=== PATIENT | male | born 1940 | race Caucasian/White ===

== ENCOUNTER → 2017-04-22 15:30 | Outpatient (CLI) | payer MEDICARE, BC, SELFPAY ==
--- NOTE | 2017-04-22 15:36 | RAD_ITS ---
STUDY: X-RAY CHEST REASON FOR EXAM: Male, 76 years old. Right posterior chest pain. TECHNIQUE: PA and lateral views of the chest. COMPARISON: None. FINDINGS: The lungs are incompletely expanded and there is minimal linear subsegmental atelectasis in the inferior lung bases. There is a focus of pleural parenchymal scarring in the medial left apex that includes a nearly 2 cm calcified granuloma. Much of this overlaps the posterior medial left third and fourth ribs as well as the medial left clavicle, so detail is limited. Normal size heart. Normal mediastinum and logan. Normal visualized pulmonary arteries. There is atherosclerotic calcification of the aortic arch and descending thoracic aorta. There are diffuse degenerative changes of the visualized thoracic spine. Normal visualized ribs, clavicles, and shoulders. There is no demonstrated abnormality of the visualized soft tissue structures of the upper abdomen. RAD/Chest PA and Lateral IMPRESSION: 1. Minimal basilar subsegmental atelectasis. No consolidating infiltrate or CHF. 2. Pleural parenchymal scarring in the medial left apex that includes a nearly 2 cm calcified granuloma. Electronically Signed: Rashaad Whittington MD at 16:32 EST , Service support ,
== END ==
PROVIDERS: Family Provider Nurse Practitioner; PCP Nurse Practitioner; Visit Provider Nurse Practitioner
DX: M54.9 Dorsalgia, unspecified (principal)
CPT/HCPCS: 71046

== ENCOUNTER → 2017-05-10 08:14 | Outpatient (CLI) | payer MEDICARE, BC, SELFPAY ==
--- NOTE | 2017-05-10 08:17 | US_ITS ---
STUDY: ABDOMINAL ULTRASOUND - RIGHT UPPER QUADRANT REASON FOR VISIT: Male, 76 years old. Indigestion. TECHNIQUE: Ultrasound evaluation of the right upper quadrant was performed with real-time and static shah-scale imaging. TECHNICAL QUALITY: Adequate. COMPARISON: None. FINDINGS: Liver: The liver measures 18.6 cm. There is increased echogenicity consistent with fatty infiltration. The bile ducts are within normal limits. There is hepatic color flow. The direction of portal flow is hepatopetal. There is no demonstrated mass lesion. Gallbladder: Normal distended gallbladder. The gallbladder wall measures 2 mm. There is a negative sonographic Westbrook's sign. There is no pericholecystic fluid. There are no gallstones. Common Bile Duct (C.B.D.): The common bile duct measures 5 mm. Pancreas: Normal size of the head, body and tail of the pancreas. There is normal echogenicity of the pancreas. There is no demonstrated pancreatic mass or cyst. Right Kidney: Normal size of the right kidney. The right kidney measures 12.3 cm. Normal renal cortex. The right cortex measures 1.7 cm. There is no demonstrated renal mass or cyst. There is no right hydronephrosis. US/Gallbladder IMPRESSION: Fatty infiltration of the liver. No gallstones or biliary dilatation. Electronically Signed: Mohamud Byrne MD at 16:11 EDT , Service support ,
== END ==
PROVIDERS: Family Provider Internal Medicine; PCP Internal Medicine; Visit Provider Nurse Practitioner
DX: K30 Functional dyspepsia (principal)
CPT/HCPCS: 76705

== ENCOUNTER → 2017-05-27 07:20 | Outpatient (CLI) | payer MEDICARE, BC, SELFPAY ==
--- NOTE | 2017-05-27 07:24 | NM_ITS ---
CLINICAL: 76-year-old male with reported history of abdominal pain. RADIONUCLIDE HEPATOBILIARY SCINTIGRAPHY COMPARISON: Abdominal ultrasound report 05/10/2017 FINDINGS: Following the intravenous administration of 5.5 mCi of 99m Tc Mebrofenin, hepatobiliary images reveal: 1. Relatively prompt and homogeneous radiopharmaceutical concentration is noted by a normal sized liver. No parenchymal defects are identified. 2. Gallbladder activity is identified at 10 minutes post radiopharmaceutical administration. 3. Small intestinal tract is observed at 45 minutes following tracer injection. 4. Washout of the radiopharmaceutical by the hepatic parenchyma appears qualitatively normal. Cholecystokinin (0.02 ug/kg) was administered intravenously over a 30-minute period. The post CCK gallbladder ejection fraction calculated at 20 minutes following Cholecystokinin administration was noted to be 88.0 % (normal greater than 35%). During 30 minutes of post CCK imaging, there is no scintigraphic evidence of reflux of the radiotracer into the common hepatic duct or refilling of the gallbladder. There is scintigraphic evidence of post CCK duodenal gastric reflux. NM/Hepatobilliary Imaging IMPRESSION: 1. A gallbladder ejection fraction calculated to be greater than 35% following the administration of Cholecystokinin makes the probability of functional hepatobiliary disease (gallbladder and/or sphincter of Oddi dyskinesia) and/or organic hepatobiliary disease (chronic acalculous cholecystitis and/or cystic duct syndrome) to be low. (Lloyd Mancera et al, Journal of Nuclear Medicine 32:1695, 1990). 2. There is scintigraphic evidence of post CCK duodenal-gastric reflux as described above. (Tripp et al, Nucl Med Laura Hannah Press pg. 35, 1980). Electronically Signed: Shadi Pierce DO at 8:30 EDT Tel , Service support ,
== END ==
PROVIDERS: Family Provider Internal Medicine; PCP Internal Medicine; Visit Provider Nurse Practitioner
DX: K21.9 Gastro-esophageal reflux disease without esophagitis (principal)
CPT/HCPCS: 78226; A9537; J2805

== ENCOUNTER → 2018-07-23 12:52 | Outpatient (CLI) | payer MEDICARE, BC, SELFPAY ==
--- NOTE | 2018-07-23 13:00 | EKG12_ITS ---
Test Reason : BRADYCARDIA Blood Pressure : / mmHG Vent. Rate : 056 BPM Atrial Rate : 056 BPM P-R Int : 214 ms QRS Dur : 090 ms QT Int : 422 ms P-R-T Axes : 030 011 011 degrees QTc Int : 407 ms Sinus bradycardia with 1st degree A-V block Inferior infarct , age undetermined Abnormal ECG Confirmed by RYAN KIRBY ([id number]), senior technical editor ARMANDO ALONSO ([id number]) on 07/25/2018 6:06:14 AM Referred By: Chelsie Arndt Confirmed By:RYAN KIRBY
== END ==
PROVIDERS: Family Provider Internal Medicine; PCP Internal Medicine; Referring Provider Nurse Practitioner; Visit Provider Nurse Practitioner
DX: R00.1 Bradycardia, unspecified (principal)
CPT/HCPCS: 93005

== ENCOUNTER → 2018-09-03 06:07 | Outpatient (CLI) | payer MEDICARE, BC, SELFPAY ==
[2018-08-13 14:24] VITALS: BMI 29.0
[2018-08-30 10:00] VITALS: BMI 29.0
--- NOTE | 2018-09-03 06:08 | ECHOCS_ITS ---
Reason For Study: S/P PR Procedure This was a 2D Doppler, Color Flow transthoracic echocardiogram. The study was technically difficult. Contrast injection was performed. Exam performed in department. Left Ventricle Normal LV size. Moderate concentric left ventricular hypertrophy. Left ventricular systolic function is normal. The estimated ejection fraction is 60 %. Stage 1 diastolic dysfunction. No regional wall motion abnormalities noted. Right Ventricle Normal RV size. Normal systolic function. Atria Normal left atrium. Normal right atrium. Mitral Valve Normal mitral valve. Tricuspid Valve Normal tricuspid valve. Aortic Valve The aortic valve is not well visualized. Pulmonic Valve The pulmonic valve is not well visualized. Great Vessels Normal aortic root. The pulmonary artery is normal size. Normal inferior vena cava. Pericardium/Pleural No pericardial effusion. Medication 22 gauge I.V. with prn adaptor inserted into right arm. Diluted definity 5ml given slow IV push to enhance endocardial definition. MMode/2D Measurements & Calculations LVIDd: 4.6 cm IVSd: 1.5 cm Ao root diam: 3.5 cm LVIDs: 3.0 cm LVPWd: 1.2 cm LA dimension: 3.7 cm FS: 36.3 % LAV(MOD-bp): 51.0 ml LVAd ap4: 30.0 cm2 SV(MOD-sp4): 60.3 ml LAV(MOD-bp) Indexed: 24.0 ml/m2 EDV(MOD-sp4): 90.7 ml LAV(MOD-sp2): 51.2 ml EDV(sp4-el): 94.2 ml LAV(MOD-sp4): 47.4 ml LVAs ap4: 15.5 cm2 ESV(MOD-sp4): 30.5 ml ESV(sp4-el): 30.5 ml EF(MOD-sp4): 66.4 % EF(sp4-el): 67.7 % SV(sp4-el): 63.8 ml LA A4 area: 18.2 cm2 RA A4 area: 17.3 cm2 Time Measurements MV dec time: 0.26 sec Doppler Measurements & Calculations MV E max poncho: 77.4 cm/sec Lat Peak E' Poncho: 8.4 cm/sec Med Peak E' Poncho: 6.8 cm/sec MV A max poncho: 100.4 cm/sec E/E' lat: 9.2 E/E' med: 11.3 MV E/A: 0.77 MV V2 max: 120.4 cm/sec MV P1/2t max poncho: 107.9 cm/sec Ao V2 max: 146.4 cm/sec MV max P.8 mmHg MV P1/2t: 75.3 msec Ao max P.6 mmHg MV V2 mean: 54.3 cm/sec MV mean P.5 mmHg MV dec slope: 419.8 cm/sec2 MV V2 VTI: 45.7 cm MVA(P1/2t): 2.9 cm2 LV V1 max: 126.6 cm/sec PA V2 max: 95.3 cm/sec LV V1 max P.4 mmHg Interpretation Summary Normal LV size. Moderate concentric left ventricular hypertrophy. Left ventricular systolic function is normal. The estimated ejection fraction is 60 %. Stage 1 diastolic dysfunction. Contrast injection was performed. Ordering Physician: Jeff Portillo Referring Physician: Chelsie Arndt Performed By: Yogi Vasquez RCS
--- NOTE | 2018-09-03 06:08 | CDU_ITS ---
Reason For Study: Vertigo Rt. Velocities/BP Lt. Velocities/BP Prox CCA 84/14 cm/sec. Prox CCA 83/16 cm/sec. Mid CCA 78/14 cm/sec. Mid CCA 74/16 cm/sec. Dist CCA 59/12 cm/sec. Dist CCA 56/12 cm/sec. Prox ICA 46/16 cm/sec. Prox ICA 143/33 cm/sec. Mid ICA 66/20 cm/sec. Mid ICA 85/18 cm/sec. Dist ICA 75/23 cm/sec. Dist ICA 82/23 cm/sec. Rt. ICA/CCA = 1.0. Lt. ICA/CCA = 1.93. Prox ECA 86/6 cm/sec. Prox ECA 93/6 cm/sec. Rt. Vert. 55/14 cm/sec. Lt. Vert. 45/12 cm/sec. Right Extracranial There is homogeneous, smooth atherosclerotic plaque noted in the right common carotid artery. There is heterogeneous, irregular atherosclerotic plaque noted in the right internal carotid artery. There is heterogeneous, irregular atherosclerotic plaque noted in the right external carotid artery. Antegrade flow is noted in the right vertebral artery. Left Extracranial There is heterogeneous, irregular atherosclerotic plaque noted in the left common carotid artery. There is heterogeneous, irregular atherosclerotic plaque noted in the left internal carotid artery. There is homogeneous, smooth atherosclerotic plaque noted in the left external carotid artery. Antegrade flow is noted in the left vertebral artery. Procedure Carotid Duplex [id number]. Exam performed in department. Interpretation Summary Mild (<50%) stenosis right extracranial internal carotid. Moderate (50-69%) stenosis left extracranial internal carotid. Flow within the vertebral arteries is antegrade bilaterally. Ordering Physician: Jeff Portillo Referring Physician: Chelsie Arndt Performed By: Vanita Lancaster, JEROME, RVT
--- NOTE | 2018-09-03 09:21 | STRESSREP ---
Stress Test Report Exercise myocardial perfusion stress test. 77-year-old male with a history of known coronary artery disease. Medications: Aspirin, irbesartan, amlodipine. Stress protocol: Resting EKG demonstrates sinus bradycardia with a rate of 60 bpm normal intervals are noted resting blood pressures 152/88 mmHg. The patient exercised according to regular John protocol for a total duration of 8 minutes. The maximum heart rate attained was 139 bpm which was 97% of maximum predicted heart rate the maximum workload was 10.1 metabolic equivalents. At rest there were no ST or T wave changes noted suggest ischemia peak exercise upsloping ST changes noted with no meet the criteria for ischemia. During recovery there were nonspecific ST changes noted. No clinical angina was noted. The resting blood pressure 152/88 with a peak blood pressure of 168/82 mmHg. Myocardial perfusion protocol. 14.3 mCi of technetium 99m sestamibi was injected at rest. Patient exercised according to regular John protocol for 8 minutes. At peak exercise 44.4 mCi of technetium 99m sestamibi was injected stress images were obtained stress and rest images were reconstructed in comparing the short axis vertical and horizontal long axis. Perfusion SPECT analysis: Review of the stress images demonstrate normal uptake of tracer noted in all areas of the myocardium the resting images similar demonstrate normal uptake of tracer noted in all areas of myocardium. No areas of reversibility no suggest ischemia no previous infarct is noted. Gated SPECT analysis: Gated ejection fraction is noted to be 58%. Conclusion: Normal exercise myocardial perfusion stress test at a high workload. Preserved ejection fraction.
== END ==
PROVIDERS: Family Provider Nurse Practitioner; PCP Nurse Practitioner; Referring Provider Internal Medicine Cardiovascular Disease; Visit Provider Internal Medicine Cardiovascular Disease
DX: I10 Essential (primary) hypertension (principal); I25.10 Atherosclerotic heart disease of native coronary artery without angina pectoris; R09.89 Other specified symptoms and signs involving the circulatory and respiratory systems; I25.2 Old myocardial infarction
CPT/HCPCS: 78452; 93017; 93306; 93880; A9500; Q9957; A4216; C8929

== ENCOUNTER → 2018-10-07 14:15 | Outpatient (CLI) | payer SELFPAY ==
[2018-08-30 10:00] VITALS: BMI 29.0
--- NOTE | 2018-10-07 14:25 | CT_ITS ---
STUDY: CARDIAC CALCIUM SCORING - CT CHEST REASON FOR EXAM: Male, 77 years old. RADIATION DOSAGE (If Supplied By Facility): CTDIvol = ( 12.19 ) mGy, DLP = ( 195.04 ) mGycm TECHNIQUE: Axial non-enhanced images were acquired through the heart for the sole purpose of measuring coronary artery calcium. Individualized dose optimization techniques were used for this CT. COMPARISON: None. FINDINGS: Visualized surrounding anatomy: Normal. Left Main Coronary Artery: 65.2 Left Anterior Descending Artery: 183 Left Circumflex Artery: 52.7 Right Coronary Artery: 13.3 Other: Total Calcium Score: 315 There is moderate aortic atherosclerotic disease. There is mild bibasilar atelectasis. Mild cardiomegaly. There are degenerative changes of the spine. CT/Limited Chest CT w/CCTA IMPRESSION: A Calcium Score of 315 places the patient in the approximate 35 percentile, based on the HOWE data calculator. Please go to: www.howe-n[facility].org/Calcium/input.aspx , for a description of the calculator. Electronically Signed: Eusebia Nayak, at 16:51 EDT Tel , Service support ,
[2018-10-07 14:32] VITALS: BP 130/65; PULSE 53; RESP 18; O2SAT 93; BMI 27.8
--- NOTE | 2018-10-07 16:39 | CA.SCORE ---
Calcium Scoring Date of Study:: 10/07/18 Coronary Calcium Scoring: High-resolution Computed Tomographic imaging of the chest was performed on [10/07/2018], with particular attention paid to the coronary arteries. Images from the examination were analyzed for the presence and extent of coronary artery calcification , using coronary calcium quantification software. The patient tolerated the procedure well and there were no complications. The results of the coronary calcification analysis are provided below. - Findings Left Main (LM): 65 Left Anterior Descending (LAD): 183 Left Circumflex (LCX): 52 Right Coronary Artery (RCA): 13 Total Agatston Score: 313 Percentile Rankin to 50% Calcium Scoring Interpretation: 0 No identifiable atherosclerotic plaque. Very low cardiovascular disease risk. <5% chance of presence coronary artery disease A Negative Examination 1-10 Minimal Plaque burden. Significant coronary artery disease very unlikely. 11-100 Mild plaque burden. Likely mild or minimal coronary atherosclerosis. 101-400 Moderate plaque burden Moderate non-obstructive coronary artery disease highly likely. Over 400 Extensive plaque burden. High likelihood of at least one significant coronary stenosis (>50% diameter) Calcium Score: 101 - 400 Moderate non-obstructive coronary artery disease highly like Conclusion: The above is suggestive of moderate atherosclerotic plaquing. Full evaluation of cardiac risk should include an assessment of all conventional risk factors and the scores and percentile rankings reported herein should be evaluated in this context.
== END ==
PROVIDERS: Family Provider Nurse Practitioner; PCP Nurse Practitioner; Referring Provider Nurse Practitioner; Visit Provider Nurse Practitioner
DX: Z13.9 Encounter for screening, unspecified (principal)
CPT/HCPCS: 75571; 76380

== ENCOUNTER → 2019-12-01 12:54 | Outpatient (CLI) | payer MEDICARE, BC, SELFPAY ==
[2018-10-07 14:32] VITALS: BMI 27.8
--- NOTE | 2019-12-01 12:57 | CDU_ITS ---
Reason For Study: carotid stenosis Rt. Velocities/BP Lt. Velocities/BP Prox CCA 90.4/13.4 cm/sec. Prox CCA 93.0/18.6 cm/sec. Mid CCA 63.0/13.4 cm/sec. Mid CCA 73.4/13.4 cm/sec. Dist CCA 57.8/8.2 cm/sec. Dist CCA 56.4/10.8 cm/sec. Prox ICA 55.2/13.4 cm/sec. Prox ICA 141.2/34.3 cm/sec. Mid ICA 55.2/17.3 cm/sec. Mid ICA 112.5/26.5 cm/sec. Dist ICA 68.2/22.6 cm/sec. Dist ICA 106.5/20.6 cm/sec. Rt. ICA/CCA = 1.1. Lt. ICA/CCA = 1.9. Prox ECA 98.2/9.5 cm/sec. Prox ECA 104.7/8.2 cm/sec. Rt. Vert. 40.8/13.4 cm/sec. Lt. Vert. 49.8/8.0. cm/sec. Right Extracranial There is intimal thickening but no significant atherosclerotic plaque noted in the right common carotid artery. There is heterogeneous, irregular atherosclerotic plaque noted in the right internal carotid artery. There is heterogeneous, irregular atherosclerotic plaque noted in the right external carotid artery. Antegrade flow is noted in the right vertebral artery. Left Extracranial There is intimal thickening but no significant atherosclerotic plaque noted in the left common carotid artery. There is heterogeneous, irregular atherosclerotic plaque noted in the left internal carotid artery. There is homogeneous, smooth atherosclerotic plaque noted in the left external carotid artery. Antegrade flow is noted in the left vertebral artery. Procedure Carotid Duplex [id number]. This is a Carotid Duplex examination using B-mode, color flow and specral Doppler. The exam was diagnostic. Exam performed in department. Interpretation Summary Mild (<50%) stenosis right extracranial internal carotid. Moderate (50-69%) stenosis left extracranial internal carotid. Flow within the vertebral arteries is antegrade bilaterally. Ordering Physician: Chelsie Arndt Performed By: Derrell Bryant RVT
== END ==
PROVIDERS: PCP Nurse Practitioner; Referring Provider Nurse Practitioner; Visit Provider Nurse Practitioner
DX: I65.23 Occlusion and stenosis of bilateral carotid arteries (principal); R93.89 Abnormal findings on diagnostic imaging of other specified body structures
CPT/HCPCS: 93880

== ENCOUNTER 2020-03-25 14:38 | Outpatient (RCR) | payer MEDICARE, BC, SELFPAY ==
[2018-10-07 14:32] VITALS: BMI 27.8
== END 2020-03-25 23:59 ==
LOC: IMMUN 14:38
PROVIDERS: PCP Nurse Practitioner; Referring Provider Family Medicine; Visit Provider Family Medicine
DX: Z23 Encounter for immunization (principal)
CPT/HCPCS: 0011A; 0012A

== ENCOUNTER → 2020-07-07 12:46 | Outpatient (CLI) | payer MEDICARE, BC, SELFPAY ==
[2018-10-07 14:32] VITALS: BMI 27.8
--- NOTE | 2020-07-07 12:48 | CDU_ITS ---
Reason For Study: carotid stenosis Rt. Velocities/BP Lt. Velocities/BP Prox CCA 82.6/13.4 cm/sec. Prox CCA 86.5/16.0 cm/sec. Mid CCA 76.0/13.4 cm/sec. Mid CCA 63.0/10.8 cm/sec. Dist CCA 57.8/9.5 cm/sec. Dist CCA 70.8/17.3 cm/sec. Prox ICA 64.3/17.3 cm/sec. Prox ICA 200.4/44.5 cm/sec. Mid ICA 66.9/17.3 cm/sec. Mid ICA 149.9/29.2 cm/sec. Dist ICA 59.1/17.3 cm/sec. Dist ICA 91.9/13.3 cm/sec. Rt. ICA/CCA = .9. Lt. ICA/CCA = 3.2. Prox ECA 91.7/9.5 cm/sec. Prox ECA 123.0/12.1 cm/sec. Rt. Vert. 66.9/18.6 cm/sec. Lt. Vert. 71.6/18.8 cm/sec. Right Extracranial There is intimal thickening but no significant atherosclerotic plaque noted in the right common carotid artery. There is heterogeneous, irregular atherosclerotic plaque noted in the right internal carotid artery. There is heterogeneous, irregular atherosclerotic plaque noted in the right external carotid artery. Antegrade flow is noted in the right vertebral artery. Left Extracranial There is intimal thickening but no significant atherosclerotic plaque noted in the left common carotid artery. There is heterogeneous, irregular atherosclerotic plaque noted in the left internal carotid artery. There is heterogeneous, irregular atherosclerotic plaque noted in the left external carotid artery. Antegrade flow is noted in the left vertebral artery. Procedure Carotid Duplex [id number]. This is a Carotid Duplex examination using B-mode, color flow and specral Doppler. The exam was diagnostic. Exam performed in department. VL/Carotid Duplex Ultrasound Interpretation Summary Mild (<50%) stenosis right extracranial internal carotid. Moderate (50-69%) sue nosis left extracranial internal carotid. Flow within the vertebral arteries is antegrade bilaterally. Ordering Physician: Chelsie Arndt Performed By: Derrell Bryant RVT
== END ==
PROVIDERS: PCP Nurse Practitioner; Referring Provider Nurse Practitioner; Visit Provider Nurse Practitioner
DX: I65.23 Occlusion and stenosis of bilateral carotid arteries (principal)
CPT/HCPCS: 93880

== ENCOUNTER 2020-09-06 16:08 | Emergency (ER) | payer MEDICARE, BC, SELFPAY ==
[2018-10-07 14:32] VITALS: BMI 27.8
[2020-09-06 16:09] VITALS: BP 136/98; PULSE 112; RESP 18; TEMP 36.4; O2SAT 92; BMI 27.0
--- NOTE | 2020-09-06 16:44 | EX.ED.DYSGE1 ---
HPI History of Present Illness Chief Complaint: Nosebleed Informant: patient Narrative Narrative: 79-year-old male presenting with nosebleed. He states this started approximately 1 PM. He is on aspirin, no other anticoagulants. He states he blew his nose and then noticed blood from his right nare. Denies trauma. Denies other complaints. Recent Illness/Hospitalization: No PFSH PFS Medical History (Updated 09/06/20 @ 17:[address] Jossie Crum MD) Arthritis BPH (benign prostatic hyperplasia) Erectile dysfunction Essential (primary) hypertension GERD (gastroesophageal reflux disease) History of Lyme disease Hyperlipidemia Hypernatremia Low testosterone in male Home Medications aspirin 81 mg tablet,delayed release 81 mg PO DAILY 08/04/18 [History Last Taken Unknown] cholecalciferol (vitamin D3) 50 mcg (2,000 unit) tablet 4,000 unit PO DAILY tab 08/04/18 [History Last Taken Unknown] pravastatin 40 mg tablet 40 mg PO DAILY 08/04/18 [History Last Taken Unknown] vitamin E (dl, acetate) 400 unit capsule 400 unit PO DAILY 08/04/18 [History Last Taken Unknown] vitamins A,C,S-bahg-qpzyul 7,160 unit-113 mg-100 unit tablet 2 tab PO BID 08/04/18 [History Last Taken Unknown] amlodipine 10 mg tablet 10 mg PO DAILY #90 tab 08/13/18 [Rx Last Taken Unknown] losartan 100 mg tablet PO #30 tab 08/30/18 [History Last Taken Unknown] hydrochlorothiazide 12.5 mg PO DAILY 09/06/20 [History Last Taken Unknown] Allergy/AdvReac Type Severity Reaction Status Date / Time simvastatin [From Zocor] Allergy Mild itch Verified 09/06/20 16:09 Family History Other Hypertension Surgical History History of cataract extraction (~2014) History of prostatectomy (~2012) History of repair of rotator cuff History of total left knee replacement History of total right knee replacement Social History (Updated 08/30/18 @ 12:27 by Marita Munroe PA, PA) Smoking Status: Former smoker how long ago did patient quit smokin alcohol intake: current details: occasional substance use type: does not use caffeine: Yes ROS ROS ED Constitutional Constitutional ED: Denies fever(s) ENT ENT ED: Reports other Details: nosebleed ; Denies rhinorrhea or sore throat Cardiovascular Cardiovascular: Denies chest pain or palpitations Respiratory/Chest Respiratory/Chest: Denies cough or dyspnea EXAM Physical Exam Const Vital Signs: 09/06/20 16:09 Temperature 97.5 F L Temperature Source Temporal Pulse Rate 112 H Respiratory Rate 18 Blood Pressure 136/98 H Blood Pressure Mean 110 Pulse Ox 92 Oxygen Delivery Method Room Air Positive well nourished and well developed General Appearance ED: well developed HEENT Reports normocephalic and head/scalp atraumatic HEENT Narrative: dried blood right nare. No blood in posterior pharynx Eyes PERRL and EOMs intact bilaterally Neck supple General: Negative for tenderness Chest Wall inspection of chest normal Resp normal respiratory effort and clear to auscultation bilaterally Cardio regular rate and regular rhythm no CVA tenderness Extremity normal to inspection Neuro oriented x3 Sensorium / Orientation: alert Psych mental status grossly normal MDM MDM MDM Narrative Medical decision making narrative: Direct pressure was applied. Cotton ball soaked in Gonzalo mix was instilled into right nare. After observation patient has no active bleeding. Rhino Rocket was placed. Patient tolerated this well. Advised to follow-up with ENT. Advised return to ED for worsening complaints. Discharge Plan Triage Chief Complaint: Nosebleed ED Provider: Jossie Crum Dx/Rx/DC Orders Clinical Impression: Epistaxis Instructions: Nosebleed Prescriptions: No Action amlodipine 10 mg tablet 10 mg PO DAILY Qty: 90 RF: 3 pravastatin 40 mg tablet 40 mg PO DAILY RF: 0 aspirin [Adult Aspirin Regimen] 81 mg tablet,delayed release (DR/EC) 81 mg PO DAILY RF: 0 cholecalciferol (vitamin D3) 2,000 unit tablet 4,000 unit PO DAILY RF: 0 vitamin E (dl, acetate) 400 unit capsule 400 unit PO DAILY RF: 0 PreserVision AREDS 7,160-113-100 axzt-od-bvzf tablet 2 tab PO BID RF: 0 losartan 100 mg tablet PO Qty: 30 RF: 0 hydrochlorothiazide 12.5 mg Capsule 12.5 mg PO DAILY RF: 0 Primary Care Provider: Chelsie Arndt NP Referrals: Chelsie Arndt NP, [employer] [Primary Care Provider] - Sergio Sánchez MD [STAFF PHYSICIAN] - Disposition Disposition: Home, Self Care
== END 2020-09-06 17:23 | disposition home or self-care (01) ==
PROVIDERS: Emergency Provider Emergency Medicine; PCP Nurse Practitioner
DX: R04.0 Epistaxis (principal); I10 Essential (primary) hypertension; M19.90 Unspecified osteoarthritis, unspecified site; E78.5 Hyperlipidemia, unspecified; N40.0 Benign prostatic hyperplasia without lower urinary tract symptoms; K21.9 Gastro-esophageal reflux disease without esophagitis; Z79.82 Long term (current) use of aspirin; Z79.899 Other long term (current) drug therapy; Z87.891 Personal history of nicotine dependence; Z96.653 Presence of artificial knee joint, bilateral; Z90.79 Acquired absence of other genital organ(s)
CPT/HCPCS: 30901; 99282

== ENCOUNTER 2020-09-19 10:53 | Emergency (ER) | payer MEDICARE, BC, SELFPAY ==
[2020-09-19 10:54] VITALS: BP 150/87; PULSE 109; RESP 16; TEMP 36.6; O2SAT 98; BMI 28.7
--- NOTE | 2020-09-19 11:50 | EX.ED.DYSGE1 ---
HPI History of Present Illness Chief Complaint: Nosebleed Informant: patient Narrative Narrative: Patient presents with a repeat of nosebleed on the right side. He has been holding his aspirin for about a week now. He was seen here a week to 2 weeks ago. Packing was placed. He followed up with ENT. They did cauterization. He just bumped his nose a little bit today and it started bleeding. It has always been on the right side only. Squeezing in the front of the nose stops it. Releasing the starts it again. He is not on any other anticoagulation. No other areas of bleeding or bruising. [facility] Medical History (Updated 09/19/20 @ 14:[address] Henrry Grande MD) Arthritis BPH (benign prostatic hyperplasia) Erectile dysfunction Essential (primary) hypertension GERD (gastroesophageal reflux disease) History of Lyme disease Hyperlipidemia Hypernatremia Low testosterone in male Home Medications aspirin 81 mg tablet,delayed release 81 mg PO DAILY 08/04/18 [History Last Taken Unknown] cholecalciferol (vitamin D3) 50 mcg (2,000 unit) tablet 4,000 unit PO DAILY tab 08/04/18 [History Last Taken Unknown] pravastatin 40 mg tablet 40 mg PO DAILY 08/04/18 [History Last Taken Unknown] vitamin E (dl, acetate) 180 mg (400 unit) capsule 400 unit PO DAILY 08/04/18 [History Last Taken Unknown] vitamins A,C,W-tykx-rtjoel 7,160 unit-113 mg-100 unit tablet 2 tab PO BID 08/04/18 [History Last Taken Unknown] amlodipine 10 mg tablet 10 mg PO DAILY #90 tab 08/13/18 [Rx Last Taken Unknown] losartan 100 mg tablet PO #30 tab 08/30/18 [History Last Taken Unknown] hydrochlorothiazide 12.5 mg PO DAILY 09/06/20 [History Last Taken Unknown] Allergy/AdvReac Type Severity Reaction Status Date / Time simvastatin [From Zocor] Allergy Mild itch Verified 09/06/20 16:09 Family History Other Hypertension Surgical History History of cataract extraction (~2014) History of prostatectomy (~2012) History of repair of rotator cuff History of total left knee replacement History of total right knee replacement Social History Smoking Status: Former smoker how long ago did patient quit smokin alcohol intake: current details: occasional substance use type: does not use caffeine: Yes ROS ROS ED Constitutional Constitutional ED: Denies chills or fever(s) Eyes Eyes: Denies change in vision ENT ENT ED: Reports other Details: See history of present illness. ; Denies ear pain, rhinorrhea or sore throat Cardiovascular Cardiovascular: Denies chest pain Respiratory/Chest Respiratory/Chest: Denies cough or dyspnea Gastrointestinal Gastrointestinal: Denies melena, nausea or vomiting Genitourinary Genitourinary ED: Denies hematuria Integumentary Denies rash Neurologic Neurologic: Denies headache(s) Endocrine Endocrinology: Denies polydipsia or polyuria EXAM Physical Exam Const Vital Signs: 09/19/20 10:54 09/19/20 14:24 Temperature 97.8 F Temperature Source Temporal Pulse Rate 109 H 91 Respiratory Rate 16 16 Blood Pressure 150/87 H 162/74 H Blood Pressure Mean 108 Pulse Ox 98 98 Oxygen Delivery Method Room Air Positive well nourished and well developed General Appearance ED: well developed and NAD HEENT HEENT Narrative: Nasal clip. There is no active bleeding at this time. There is no posterior pharyngeal bleeding. No sign of facial rashes. Negative for trauma or tenderness Eyes General Eye ED: Negative for pale conjunctiva Neck supple Chest Wall inspection of chest normal Resp normal respiratory effort Cardio regular rate GI normal to inspection, nondistended, normoactive bowel sounds and non-tender Palpation: soft Extremity normal to inspection Extremity Narrative: No abnormal contusions, bruises or petechiae. Skin no rashes or lesions noted MDM MDM MDM Narrative Medical decision making narrative: [place] solution was placed in the right naris. There was a small amount of dark blood oozing from the area. None from the left side. Patient had a spot of cauterization on the right. After [place] solution this was not losing. I still placed a 5-1/2 cm rapid Rhino in the nose. This was the noninflatable version that was available. We watched him. He is gotten up and walked around. He occasionally has a little bit of pink-tinged serous fluid coming out the front but no bleeding. No posterior pharyngeal bleeding. I explained to the patient that this will likely take some time to fully heal. This is likely related to the first event. He may have dislodged a small clot from the area of cauterization when it started bleeding today after bumping the nose. If he has further bleeding, we can try TXA, thrombin or the longer rapid Rhino. I see an anterior area but I do not have an inflatable pack in the shorter length so we would have to use the longer 1. He will follow up with ENT again in 2 to 3 days. He should return with rebleeding. Discharge Plan Triage Chief Complaint: Nosebleed ED Provider: Henrry Grande Dx/Rx/DC Orders Clinical Impression: Epistaxis Instructions: ED Epistaxis (Adult) Prescriptions: No Action amlodipine 10 mg tablet 10 mg PO DAILY Qty: 90 RF: 3 pravastatin 40 mg tablet 40 mg PO DAILY RF: 0 aspirin [Adult Aspirin Regimen] 81 mg tablet,delayed release (DR/EC) 81 mg PO DAILY RF: 0 cholecalciferol (vitamin D3) 2,000 unit tablet 4,000 unit PO DAILY RF: 0 vitamin E (dl, acetate) 400 unit capsule 400 unit PO DAILY RF: 0 PreserVision AREDS 7,160-113-100 wqhn-as-bihh tablet 2 tab PO BID RF: 0 losartan 100 mg tablet PO Qty: 30 RF: 0 hydrochlorothiazide 12.5 mg Capsule 12.5 mg PO DAILY RF: 0 Primary Care Provider: Chelsie Arndt NP Referrals: Chelsie Arndt [employer], [employer] [Primary Care Provider] - Activity Restrictions/Additional Instructions: Follow-up with your director of learning in 2-3 days. Return with any significant rebleeding. Return with any fevers or chills. Disposition Disposition: Home, Self Care Discharge Date/Time: 09/19/20 14:25
[2020-09-19 14:24] VITALS: BP 162/74; PULSE 91; RESP 16; O2SAT 98
== END 2020-09-19 14:25 | disposition home or self-care (01) ==
PROVIDERS: Emergency Provider Emergency Medicine; PCP Nurse Practitioner
DX: R04.0 Epistaxis (principal); D64.9 Anemia, unspecified; E83.52 Hypercalcemia; I10 Essential (primary) hypertension; E78.5 Hyperlipidemia, unspecified; M19.90 Unspecified osteoarthritis, unspecified site; N40.0 Benign prostatic hyperplasia without lower urinary tract symptoms; K21.9 Gastro-esophageal reflux disease without esophagitis; Z79.82 Long term (current) use of aspirin; Z79.899 Other long term (current) drug therapy; Z87.891 Personal history of nicotine dependence; Z96.653 Presence of artificial knee joint, bilateral
CPT/HCPCS: 30901; 36415; 80069; 82607; 82746; 83540; 83550; 85025; 99282

== ENCOUNTER → 2020-09-19 16:59 | Outpatient (CLI) | payer MEDICARE, BC, SELFPAY ==
[2020-09-19 10:54] VITALS: BMI 28.7
[2020-09-19 17:48] LABS: Absolute Lymphocyte Count 1.07 X10^3/uL (0.83-4.51); Absolute Neutrophil Count 6.7 X10^3/uL (2.0-7.7); Basophil# 0.04 X10^3/uL; Basophil% 0.5 % (0-1); Eosinophil# 0.03 X10^3/uL; Eosinophils% 0.4 % (0-5); Hematocrit 40.7 % (40-54); Lymphocyte # 1.07 X10^3/ul (0.83-4.51); Lymphocyte % 12.5 % (19-41); Mean Corp Hgb Conc 31.9 g/dL (32-36); Mean Corpuscular Hgb 27.6 pg (27.0-32.0); Mean Corpuscular Volume 86.4 fL (80-94); Mean Platelet Vol. 8.8 fl (6.2-12.0); Monocyte# 0.71 X10^3/uL; Monocyte% 8.3 % (0-10); NRBC Flagged by Analyzer 0 % (0-5); Neutrophil % 78.1 % (47-70); Platelet Count 433 K/mm3 (150-450); RBC Distribution Width CV 13.3 % (11.6-14.6); Red Blood Count 4.71 M/mm3 (4.6-6.2); White Blood Count 8.6 K/mm3 (4.4-11.0)
[2020-09-19 18:10] LABS: Vitamin B12 598 pg/mL (211-911)
[2020-09-19 18:22] LABS: Albumin, Serum 3.8 g/dL (3.2-5.0); BUN 16 mg/dL (7-18); BUN/Creat Ratio 23.3 RATIO (10-20); Chloride 103 mmol/L (98-107); Creatinine, Serum 0.69 mg/dL (0.70-1.30); EST Glomerular Filtration Rate 118 mL/min (>60); Est Glom Filt Rate - Afr Amer 142 mL/min (>60); Glucose 97 mg/dL (74-106); Iron 25 ug/dL (65-175); Iron Binding Capacity,Total 299 ug/dL (250-450); PERCENT IRON SATURATION 8.4 % (15.0-55.0); Phosphorus 2.6 mg/dL (2.5-4.9); Potassium 3.4 mmol/L (3.5-5.1); Sodium Level 139 mmol/L (136-145)
== END ==
PROVIDERS: PCP Nurse Practitioner; Referring Provider Nurse Practitioner; Visit Provider Nurse Practitioner
DX: D64.9 Anemia, unspecified (principal); E83.52 Hypercalcemia
CPT/HCPCS: 36415; 80069; 82607; 82746; 83540; 83550; 85025

== ENCOUNTER → 2021-01-20 10:07 | Outpatient (CLI) | payer MEDICARE, BC, SELFPAY ==
[2021-01-20 10:45] LABS: CREATININE FINGERSTICK < 0.6 mg/dL (0.70-1.30); EGFR FINGERSTICK > 60.0000 mL/min (>60)
--- NOTE | 2021-01-20 10:45 | MRI_ITS ---
HISTORY: ATAXIA, bilateral arm/hand pain. TECHNIQUE: Multiplanar and multisequence MR images of the brain were obtained without and with IV gadolinium. IV Contrast dosage and agent: 18 cc dotarem. # of images incl. paperwork: 351. COMPARISON: None. FINDINGS: BRAIN PARENCHYMA: Increased T2 FLAIR signal in the periventricular white matter. No abnormal focus of restricted diffusion. No enhancing lesion in the brain parenchyma. INTRACRANIAL HEMORRHAGE: No acute intracranial hemorrhage. CSF SPACES: Generalized volume loss. No midline shift or other significant mass effect. No extra-axial fluid collection. Choroid plexus cysts incidentally noted. VESSELS: Major intracranial flow voids maintained. ORBITS: Bilateral lens resections. PARANASAL SINUSES: No significant air-fluid levels. MRI/Brain W/WO Contrast IMPRESSION: No evidence of enhancing intracranial mass, acute infarct, or acute intracranial hemorrhage. Chronic involutional and white matter changes. at 1429 Reported and signed by: Jennifer Sampson MD Electronically Signed: Jennifer Sampson MD at 14:27 EST Tel , Service support ,
--- NOTE | 2021-01-20 10:45 | MRI_ITS ---
HISTORY: ATAXIA, bilateral arm/hand pain. TECHNIQUE: Routine [place]/brain 3D time of flight MR angiogram protocol was performed without gadolinium. 3D reconstructions were reviewed. Number of images including paperwork: 195. COMPARISON: None. FINDINGS: RIGHT VERTEBRAL ARTERY: Patent. LEFT VERTEBRAL ARTERY: Dominant and patent. BASILAR ARTERY: No occlusion, significant stenosis, or aneurysm. RIGHT NETBACKUP ENGINEER: origin. No occlusion, significant stenosis, or aneurysm. LEFT NETBACKUP ENGINEER: No occlusion, significant stenosis, or aneurysm. RIGHT ICA:No occlusion, significant stenosis, or aneurysm. LEFT ICA: No occlusion, significant stenosis, or aneurysm. RIGHT MCA:No occlusion, significant stenosis, or aneurysm. LEFT MCA: No occlusion, significant stenosis, or aneurysm. RIGHT HAIM: No occlusion, significant stenosis, or aneurysm. LEFT HAIM: No occlusion, significant stenosis, or aneurysm. MRI/MRA Head ONLY without Contrast IMPRESSION: No evidence for focal vascular abnormality in the [place] region. at 1433 Reported and signed by: Jennifer Sampson MD Electronically Signed: Jennifer Sampson MD at 14:32 EST Tel , Service support ,
== END ==
PROVIDERS: PCP Nurse Practitioner; Referring Provider Nurse Practitioner; Visit Provider Nurse Practitioner
DX: R26.9 Unspecified abnormalities of gait and mobility (principal)
CPT/HCPCS: 70544; 70553; A9575

== ENCOUNTER → 2021-02-13 14:26 | Outpatient (CLI) | payer MEDICARE, BC, SELFPAY ==
[2021-02-13 17:59] LABS: Absolute Lymphocyte Count 2.07 X10^3/uL (0.83-4.51); Absolute Neutrophil Count 6.9 X10^3/uL (2.0-7.7); Basophil# 0.02 X10^3/uL; Basophil% 0.2 % (0-1); Eosinophil# 0.17 X10^3/uL; Eosinophils% 1.7 % (0-5); Hematocrit 44.1 % (40-54); Lymphocyte # 2.07 X10^3/ul (0.83-4.51); Lymphocyte % 20.4 % (19-41); Mean Corp Hgb Conc 31.7 g/dL (32-36); Mean Corpuscular Hgb 27.7 pg (27.0-32.0); Mean Corpuscular Volume 87.2 fL (80-94); Mean Platelet Vol. 8.8 fl (6.2-12.0); Monocyte# 0.91 X10^3/uL; NRBC Flagged by Analyzer 0 % (0-5); Neutrophil % 68.1 % (47-70); Platelet Count 341 K/mm3 (150-450); RBC Distribution Width CV 15.6 % (11.6-14.6); RBC Distribution Width SD 48.4 fl (35.1-43.9); Red Blood Count 5.06 M/mm3 (4.6-6.2); White Blood Count 10.1 K/mm3 (4.4-11.0)
[2021-02-13 18:14] LABS: ALB/GLOB Ratio 0.9 RATIO (0.9-2.4); AST(SGOT) 18 U/L (15-37); Alanine Aminotransfer ALT/SGPT 33 U/L (16-61); Albumin, Serum 3.6 g/dL (3.2-5.0); Alkaline Phosphatase 86 U/L (45-117); Anion Gap 7 (5-15); BUN 26 mg/dL (7-18); BUN/Creat Ratio 34.8 RATIO (10-20); Calcium,Total 9.8 mg/dL (8.5-10.1); Chloride 100 mmol/L (98-107); Creatinine, Serum 0.75 mg/dL (0.70-1.30); EST Glomerular Filtration Rate 107 mL/min (>60); Est Glom Filt Rate - Afr Amer 129 mL/min (>60); Globulin 3.9 g/dL (2.2-4.2); Glucose 82 mg/dL (74-106); Potassium 3.7 mmol/L (3.5-5.1); Protein, Total 7.5 g/dL (6.4-8.2); Sodium Level 139 mmol/L (136-145)
[2021-02-13 18:24] LABS: Erythrocyte Sedimentation Rate 48 mm/hr (0-20)
[2021-02-14 10:12] LABS: Hepatitis B Surface Antibody Non-Reactive; Hepatitis B Surface Antigen Non-Reactive (Nonreactive); Hepatitis C Antibody Non-Reactive (Nonreactive)
[2021-02-16 11:56] LABS: ANTINUCLEAR ANTIBODIES DIRECT Negative (Negative)
== END ==
PROVIDERS: PCP Nurse Practitioner; Referring Provider Internal Medicine Rheumatology; Visit Provider Internal Medicine Rheumatology
DX: M06.4 Inflammatory polyarthropathy (principal); M19.041 Primary osteoarthritis, right hand; H35.30 Unspecified macular degeneration; I10 Essential (primary) hypertension; E78.5 Hyperlipidemia, unspecified; K21.9 Gastro-esophageal reflux disease without esophagitis; F41.9 Anxiety disorder, unspecified; H91.90 Unspecified hearing loss, unspecified ear; H93.13 Tinnitus, bilateral
CPT/HCPCS: 36415; 80053; 85025; 85652; 86038; 86140; 86706; 86803; 87340

== ENCOUNTER 2021-03-07 09:43 | Outpatient (CLI) | payer MEDICARE, BC, SELFPAY ==
--- NOTE | 2021-03-07 09:50 | US_ITS ---
STUDY: ABDOMINAL ULTRASOUND - RIGHT UPPER QUADRANT REASON FOR VISIT: Male, 80 years old INFLAMMATORY POLYARTHROPATHY -- HTN TECHNIQUE: Ultrasound evaluation of the right upper quadrant was performed with real-time and static shah-scale imaging. TECHNICAL QUALITY: Adequate. COMPARISON: Comparison is made with prior ultrasound of the right upper quadrant dated 05/10/2017. FINDINGS: Liver: The liver measures 17.7 cm. There is normal echogenicity of the liver. The bile ducts are within normal limits. There is hepatic color flow. The direction of portal flow is hepatopetal. There is a 4 cm x 3.6 cm x 3 cm echogenic nodule in the anterior aspect of the right lobe of the liver. This most likely represents an hemangioma. Gallbladder: Normal distended gallbladder. The gallbladder wall measures 2.4 mm. There is a negative sonographic Westbrook''s sign. There is no pericholecystic fluid. There are no gallstones. Common Bile Duct (C.B.D.): The common bile duct measures 4.0 mm. Pancreas: Normal size of the head, body and tail of the pancreas. There is normal echogenicity of the pancreas. There is no demonstrated pancreatic mass or cyst. Right Kidney: Normal size of the right kidney. The right kidney measures 11.7 cm x 5.5 cm x 6.1 cm. Normal renal cortex. The right cortex measures 2.0 cm. There is no demonstrated renal mass or cyst. There is no right hydronephrosis. US/Liver IMPRESSION: Findings suggestive of a 4 cm x 3.6 cm x 3 cm hemangioma in the right lobe of the liver. Electronically Signed: Cecil Steinberg MD at 13:25 EST , Service support ,
== END 2021-03-07 23:59 | disposition short-term general hospital (02) ==
LOC: US 09:47
PROVIDERS: PCP Nurse Practitioner; Referring Provider Internal Medicine Rheumatology; Visit Provider Internal Medicine Rheumatology
DX: M06.4 Inflammatory polyarthropathy (principal); M19.041 Primary osteoarthritis, right hand; H35.30 Unspecified macular degeneration; I10 Essential (primary) hypertension; E78.5 Hyperlipidemia, unspecified; K21.9 Gastro-esophageal reflux disease without esophagitis; F41.9 Anxiety disorder, unspecified; H91.90 Unspecified hearing loss, unspecified ear; H93.13 Tinnitus, bilateral
CPT/HCPCS: 76705

== ENCOUNTER → 2022-03-09 | Outpatient (CLI) | payer MEDICARE, BC, SELFPAY ==
--- NOTE | 2022-03-09 08:31 | RDU_ITS ---
Reason For Study: HTN Right Renal Artery Left Renal Artery Right renal artery ostium 187/32 Left renal artery ostium 307/68 RSV/EDV. PSV/EDV. Right renal artery proximal 181/39 Left renal artery proximal PSV/EDV PSV/EDV. 287/67 . Right renal artery mid 119/24 Left renal artery mid 134/38 PSV/EDV. PSV/EDV . Right renal artery distal 89/27 Left renal artery distal 131/34 PSV/EDV. PSV/EDV. Right RAR 2.03. Left RAR 3.34. Right Renal Parenchyma Left Renal Parenchyma Upper Pole Medula 23/7 PSV/EDV. Left upper pole medulla 48/15 Right upper pole medulla EDR 0.30 . PSV/EDV . Right upper pole medulla R.I. Left upper pole medulla EDR 0.31 . 0.72 . Left upper pole medulla R.I. 0.68 . Upper Jun Cortx 16/6 PSV/EDV. UP Cortex 45/13 PSV/EDV. Right upper pole cortex EDR 0.38 . Left upper pole cortex EDR 0.29 . Right upper pole cortex R.I. 0.62 . Left upper pole cortex R.I. 0.72 . Right lower Pole medulla 53/15 Left lower Pole medulla 28/9 PSV/EDV . PSV/EDV . Right lower pole medulla EDR 0.28 . Left lower pole medulla EDR 0.32 . Right lower pole medulla R.I. Left lower pole medulla R.I. 0.68 . 0.71 . Lower Pole Cortx 28/11 PSV/EDV. Lower Pole Cortex 24/7 PSV/EDV. Left lower pole cortex EDR 0.39 . Right lower pole cortex EDR 0.29 . Left lower pole cortex R.I. 0.61 . Right lower pole cortex R.I. 0.69 . Left Renal Hilar Right Renal Hilar LT Hilar avg 75/23 PSV/EDV . Right Hilar avg 88/24 PSV/EDV. Left hilar acceleration time 60 Right hilar acceleration time 60 m/sec. m/sec. Left Renal Dimensions Right Renal Dimensions Left kidney size 11.34 cm . Right kidney size 10.9 cm . Left cortical dimension 1.61 cm . Right cortical dimension 1.33 cm . Hypoechoic, non vascular structure noted Lt Kidney measuring 2.72cm x 2.65cm. Aorta Proximal abdominal aorta 1.71cm x 1.84 cm . Proximal abdominal aorta peak systolic velocity is 92 cm/sec . Distal abdominal aorta 1.54cm x 1.54 cm . Distal abdominal aorta peak systolic velocity is 90 cm/sec . VL/Renal Artery Duplex Ultrasound Interpretation Summary Right renal artery with elevated velocities but with a normal renal aortic rati o indicating no significant stenosis. Left renal artery with elevated velocities but with a normal renal aortic ratio indicating no significant stenosis. Right renal vein patent Left renal vein patent Right kidney normal in size Left kidney normal in size Ordering Physician: Aissatou Madsen Referring Physician: Aissatou Madsen Performed By: Vanita Lancaster, RDHELEN, RVT
== END | disposition home or self-care (01) ==
LOC: CVS 08:27
PROVIDERS: PCP Nurse Practitioner Family; Visit Provider Nurse Practitioner Family
DX: I10 Essential (primary) hypertension (principal)
CPT/HCPCS: 93975

== ENCOUNTER 2022-03-19 19:17 | Emergency (ER) | payer MEDICARE, BC, SELFPAY ==
[2022-03-19 19:18] VITALS: BP 246/116; PULSE 84; RESP 16; TEMP 36.4; O2SAT 97; BMI 28.5
--- NOTE | 2022-03-19 19:44 | EX.ED.DYSGE1 ---
HPI History of Present Illness Chief Complaint: Hypertension Informant: patient Onset/Context/Timing Onset: Month(s) (1-2) Narrative Narrative: His blood pressures been elevated for the last 1 to 2 months, more than usual. He has been on antihypertensives for several decades. He states his nurse practitioner has been adjusting medications recently, added isosorbide a couple weeks ago, initially at 20 mg twice daily then doubled it to 40 mg twice daily. He has been on losartan, 1 week ago clonidine 0.1 mg twice daily was added and today she discontinued that and put him on metoprolol 25 mg twice daily. The last dose of clonidine was this morning he was taking it 3 times daily for the last week. He started the new medication, states that his blood pressures been up all afternoon, and now it is over 200, he is asymptomatic but concerned about the numbers. [facility] Medical History Arthritis BPH (benign prostatic hyperplasia) Carotid artery disease Erectile dysfunction Essential (primary) hypertension GERD (gastroesophageal reflux disease) History of Lyme disease Hyperlipidemia Hypernatremia Low testosterone in male Home Medications pravastatin 40 mg tablet 40 mg PO DAILY 08/04/18 [History Last Taken Unknown] vitamins A,C,C-tbrc-icgdia 2,148 mcg-113 mg-45 mg-17.4 mg tablet (PreserVision AREDS) 2 tab PO BID 08/04/18 [History Last Taken Unknown] escitalopram oxalate 5 mg tablet 5 mg PO DAILY 03/19/22 [History Last Taken Unknown] finasteride 5 mg tablet 5 mg PO DAILY 03/19/22 [History Last Taken Unknown] furosemide 40 mg tablet (Lasix) 40 mg PO DAILY 03/19/22 [History Last Taken Unknown] isosorbide dinitrate 40 mg tablet 40 mg PO BID 03/19/22 [History Last Taken Unknown] lansoprazole 30 mg capsule,delayed release (Prevacid) 30 mg PO DAILY PRN Stomach Upset 03/19/22 [History Last Taken Unknown] losartan 100 mg tablet 100 mg PO DAILY #30 tabs 03/19/22 [History Last Taken Unknown] metoprolol tartrate 25 mg tablet 25 mg PO BID 03/19/22 [History Last Taken Unknown] potassium chloride 20 mEq tablet,extended release 20 meq PO DAILY 03/19/22 [History Last Taken Unknown] spironolactone 25 mg tablet 12.5 mg PO DAILY 03/19/22 [History Last Taken Unknown] vit C 250 mg-vit E 90 mg-zinc 40 mg-copper 1 qm-raulwa-aatyty capsule (PreserVision AREDS-2) 1 tab PO BID 03/19/22 [History Last Taken Unknown] Allergy/AdvReac Type Severity Reaction Status Date / Time simvastatin [From Zocor] Allergy Mild itch Verified 03/19/22 19:19 Family History Other Hypertension Surgical History History of cataract extraction (~2014) History of prostatectomy (~2012) History of repair of rotator cuff History of total left knee replacement History of total right knee replacement Social History Smoking Status: Former smoker how long ago did patient quit smokin alcohol intake: current details: occasional substance use type: does not use caffeine: Yes ROS ROS ED Constitutional Constitutional ED: Denies chills or fever(s) Eyes Eyes: Denies change in vision or diplopia ENT ENT ED: Denies rhinorrhea or sore throat Cardiovascular Cardiovascular: Denies chest pain or palpitations Respiratory/Chest Respiratory/Chest: Denies cough or dyspnea Gastrointestinal Gastrointestinal: Denies abdominal pain, diarrhea, nausea or vomiting Genitourinary Genitourinary ED: Denies dysuria or hematuria Musculoskeletal Musculoskeletal: Denies back pain or neck pain Integumentary Denies abscess or rash Neurologic Neurologic: Denies headache(s), paresthesias or weakness Psychiatric Psychiatric: Denies anxiety or suicidal thoughts EXAM Physical Exam Const Vital Signs: 03/19/22 19:18 03/19/22 19:55 03/19/22 20:08 Temperature 97.6 F L Temperature Source Temporal Pulse Rate 84 Respiratory Rate 16 Blood Pressure 246/116 H 204/85 H 142/77 H Blood Pressure Mean 159 124 98 Pulse Ox 97 Oxygen Delivery Method Room Air 03/19/22 21:17 Temperature Temperature Source Pulse Rate 87 Respiratory Rate 16 Blood Pressure 202/98 H Blood Pressure Mean 132 Pulse Ox 94 Oxygen Delivery Method Room Air Positive well nourished and well developed General Appearance ED: well developed and NAD HEENT Reports moist mucous membranes normocephalic and atraumatic Eyes PERRL and EOMs intact bilaterally Neck full ROM and supple Resp normal respiratory effort and clear to auscultation bilaterally Cardio regular rate, regular rhythm and no murmurs GI non-tender and non-distended Auscultation: normoactive bowel sounds Palpation: soft Back/Spine no CVA tenderness General Back: other FROM Extremity normal to inspection General Extremety ED: Negative for edema, pulses abnormal or tenderness General Extremity: Negative for edema or pulses abnormal Neuro oriented x3, CN's II-XII intact bilaterally and no sensory deficits noted Sensorium / Orientation: awake and alert Motor Exam: strength 5/5 throughout Skin no rashes or lesions noted and no wounds MDM MDM MDM Narrative Medical decision making narrative: Patient initially asymptomatic, the only blood test I ordered was a basic metabolic panel which came back unremarkable except for the mild prerenal azotemia. However, as I went back in the patient started talking about his stomach being upset earlier in the little now and he feels like he needs to burp. He is not having any chest discomfort or dyspnea, but he feels shaky off and on. He is conscious and has a nonfocal neurologic exam. We initially treat his pressure with IV hydralazine 20 mg, he went down to 142/77 but now he is back up to systolic of 202 as he is feeling shaky a little. Therefore because of the stomach discomfort and this, I am adding on cardiac work-up and giving him a dose of labetalol in addition to clonidine orally. His cardiac work-up is normal. On reevaluation, he is feeling much better, he took a nap in the ED he had no more shaking, his blood pressure is down in the 160s on multiple readings. I think this is adequate and he is in a safe place to go home with close outpatient follow-up regarding these medications. To started the metoprolol today, he took 25 mg 7 or 8 hours ago, we gave him hydralazine and labetalol here as well as clonidine. I think he can go home and take his other dose of metoprolol since his heart rate is in the 70s and 80s, I recommend that he use his clonidine as an as needed overnight and into tomorrow if he needs it for elevated blood pressures over 185, and to follow-up closely with his PCP for further medication management with regards to this. He is comfortable with that plan. Lab Data Attestation: I reviewed the patient's lab results. Labs: Laboratory Results - last 24 hr 03/19/22 03/19/22 03/19/22 19:43 19:43 19:43 WBC 7.9 RBC 4.75 Hgb 13.9 Hct 41.9 MCV 88.2 MCH 29.3 MCHC 33.2 RDW Std Deviation 43.9 RDW Coeff of Aisha 13.5 Plt Count 333 MPV 9.5 Immature Gran % (Auto) 0.400 Neut % (Auto) 76.6 H Lymph % (Auto) 14.3 L Stone % (Auto) 8.0 Eos % (Auto) 0.4 Baso % (Auto) 0.3 Absolute Neuts (auto) 6.1 Absolute Lymphs (auto) 1.13 Nucleated RBC % 0 Sodium 141 Potassium 3.8 Chloride 104 Carbon Dioxide 29.0 Anion Gap 8 BUN 31 H Creatinine 0.95 Estim Creat Clear Calc 63.85 Est GFR (MDRD) Af Amer 97 Est GFR (MDRD) Non-Af 80 BUN/Creatinine Ratio 32.5 H Glucose 112 H Calcium 9.8 Troponin I High Sens 14 Rhythm Strip Rhythm Strip: Sinus Rhythm Rate: 80 Ectopy: None EKG Initial EKG: Attestation: I personally reviewed and interpreted this EKG as follows: Interpretation: Sinus Rhythm, No Acute Injury Pattern and AV Block (1st deg) Prior EKG tracings: available for review Prior: Unchanged Discharge Plan Triage Chief Complaint: Hypertension ED Provider: Mohamud Weller Dx/Rx/DC Orders Clinical Impression: Accelerated hypertension Instructions: Controlling High Blood Pressure Prescriptions: No Action pravastatin 40 mg tablet 40 mg PO DAILY PreserVision AREDS 7,160-113-100 jwvp-kr-[id number] tablet 2 tab PO BID losartan 100 mg tablet 100 mg PO DAILY Qty: 30 furosemide [Lasix] 40 mg tablet 40 mg PO DAILY isosorbide dinitrate 40 mg tablet 40 mg PO BID Rx Instructions: allow nitrate-free interval of 12-14 hrs per 24-hr period spironolactone 25 mg tablet 12.5 mg PO DAILY potassium chloride 20 mEq tablet extended release 20 meq PO DAILY finasteride 5 mg tablet 5 mg PO DAILY lansoprazole [Prevacid] 30 mg Capsule,Delayed Release(Dr/Ec) 30 mg PO DAILY PRN (Reason: Stomach Upset) escitalopram oxalate 5 mg Tablet 5 mg PO DAILY metoprolol tartrate 25 mg Tablet 25 mg PO BID PreserVision AREDS-2 250-90-40-1 mg Capsule 1 tab PO BID Primary Care Provider: Aissatou Madsen Referrals: Aissatou Madsen, [employer] [Primary Care Provider] - As soon as possible Activity Restrictions/Additional Instructions: Continue your metoprolol as prescribed, you may take the nighttime medicine tonight when you get home. Use your clonidine as needed for right now, if your blood pressure goes over 185 and you are having more symptoms. You may take 0.2 mg, you may repeat this at or beyond 2 hours later with another 0.1 or 0.2 mg if you need to. Disposition Disposition: Home, Self Care
[2022-03-19] MEDS: hydrALAZINE 20 MG/ML Vial IV (19:52)
[2022-03-19 19:55] VITALS: BP 204/85
[2022-03-19 20:08] VITALS: BP 142/77
[2022-03-19 20:18] LABS: Anion Gap 8 (5-15); BUN 31 mg/dL (7-18); BUN/Creat Ratio 32.5 RATIO (10-20); Calcium,Total 9.8 mg/dL (8.5-10.1); Chloride 104 mmol/L (98-107); Creatinine, Serum 0.95 mg/dL (0.70-1.30); EST Glomerular Filtration Rate 80 mL/min (>60); Est Glom Filt Rate - Afr Amer 97 mL/min (>60); Estimated Creatinine Clearance 63.85 ml/min; Glucose 112 mg/dL (74-106); Potassium 3.8 mmol/L (3.5-5.1); Sodium Level 141 mmol/L (136-145)
--- NOTE | 2022-03-19 21:03 | EKG12_ITS ---
Test Reason : HTN Blood Pressure : / mmHG Vent. Rate : 082 BPM Atrial Rate : 082 BPM P-R Int : 256 ms QRS Dur : 090 ms QT Int : 384 ms P-R-T Axes : 042 026 002 degrees QTc Int : 448 ms Sinus rhythm with 1st degree A-V block with Premature atrial complexes Otherwise normal ECG Confirmed by MAGGIE GONZALEZ, PARK ([id number]), book editor TIFF WATSON ([id number]) on 03/22/2022 10:09:25 AM Referred By: PATRICE Confirmed By:PARK SERRANO MD
[2022-03-19] MEDS: Labetalol (Prefilled) 20 MG/4 ML IV (21:10)
[2022-03-19 21:13] LABS: Absolute Lymphocyte Count 1.13 X10^3/uL (0.83-4.51); Absolute Neutrophil Count 6.1 X10^3/uL (2.0-7.7); Basophil# 0.02 X10^3/uL; Basophil% 0.3 % (0-1); Eosinophil# 0.03 X10^3/uL; Eosinophils% 0.4 % (0-5); Hematocrit 41.9 % (40-54); Hemoglobin 13.9 g/dL (13.0-16.5); Lymphocyte # 1.13 X10^3/ul (0.83-4.51); Lymphocyte % 14.3 % (19-41); Mean Corp Hgb Conc 33.2 g/dL (32-36); Mean Corpuscular Hgb 29.3 pg (27.0-32.0); Mean Corpuscular Volume 88.2 fL (80-94); Mean Platelet Vol. 9.5 fl (6.2-12.0); Monocyte# 0.63 X10^3/uL; NRBC Flagged by Analyzer 0 % (0-5); Neutrophil # 6.08 X10^3/uL (2.7-7.7); Neutrophil % 76.6 % (47-70); Platelet Count 333 K/mm3 (150-450); RBC Distribution Width CV 13.5 % (11.6-14.6); RBC Distribution Width SD 43.9 fl (35.1-43.9); Red Blood Count 4.75 M/mm3 (4.6-6.2); White Blood Count 7.9 K/mm3 (4.4-11.0)
[2022-03-19] MEDS: cloNIDine HCl 0.2 MG Tablet PO (21:15)
[2022-03-19 21:17] VITALS: BP 202/98; PULSE 87; RESP 16; O2SAT 94
[2022-03-19 21:49] LABS: Troponin-I HS 14 pg/mL (3.0-78.0)
[2022-03-19 22:34] VITALS: BP 125/74; PULSE 66; RESP 16; O2SAT 95
== END 2022-03-19 22:35 | disposition home or self-care (01) ==
PROVIDERS: Emergency Provider Emergency Medicine; PCP Nurse Practitioner Family; Visit Provider Emergency Medicine
DX: I10 Essential (primary) hypertension (principal); R10.9 Unspecified abdominal pain; E78.5 Hyperlipidemia, unspecified; Z87.891 Personal history of nicotine dependence; Z90.79 Acquired absence of other genital organ(s); Z96.653 Presence of artificial knee joint, bilateral
CPT/HCPCS: 80048; 84484; 85025; 93005; 96374; 96375; 99283; A4216

== ENCOUNTER → 2022-03-27 | Outpatient (CLI) | payer MEDICARE, BC, SELFPAY ==
--- NOTE | 2022-03-27 12:48 | ECHOD_ITS ---
Version 3 Reason For Study: HYPERTENSION Procedure This was a 2D Doppler, Color Flow transthoracic echocardiogram. The study was technically difficult. Exam performed in department. Left Ventricle Normal LV size. Left ventricular systolic function is normal. The estimated ejection fraction is 55 %. Stage 1 diastolic dysfunction. No regional wall motion abnormalities noted. Right Ventricle Normal RV size. Normal systolic function. Atria Normal left atrium. Normal right atrium. Mitral Valve Normal mitral valve. Tricuspid Valve Normal tricuspid valve. Mild (1+) tricuspid valve insufficiency. Pulmonary artery systolic pressure is 27 mmHg. Aortic Valve Normal aortic valve. Pulmonic Valve Normal pulmonic valve. Great Vessels Normal aortic root. The pulmonary artery is normal size. Normal inferior vena cava. Pericardium/Pleural No pericardial effusion. MMode/2D Measurements & Calculations LVIDd: 4.8 cm IVSd: 1.3 cm Ao root diam: 3.8 cm LVIDs: 3.2 cm LVPWd: 1.3 cm RVDd: 3.5 cm FS: 32.2 % LAV(MOD-bp): 56.5 ml LA A4 area: 15.6 cm2 LA dimension(2D): 4.1 cm LAV(MOD-bp) Indexed: 26.6 ml/m2 LAV(MOD-sp2): 51.4 ml LAV(MOD-sp4): 51.3 ml RA A4 area: 10.6 cm2 Time Measurements MV dec time: 0.21 sec Doppler Measurements & Calculations MV E max poncho: 81.9 cm/sec Lat Peak E' Poncho: 6.5 cm/sec Med Peak E' Poncho: 5.8 cm/sec MV A max poncho: 90.6 cm/sec E/E' lat: 12.6 E/E' med: 14.1 MV E/A: 0.90 MV dec slope: 384.9 cm/sec2 Ao V2 max: 139.3 cm/sec LV V1 max: 98.4 cm/sec Ao max P.8 mmHg LV V1 max P.9 mmHg Ao V2 mean: 95.8 cm/sec LV V1 mean P.0 mmHg Ao mean P.2 mmHg LV V1 mean: 65.9 cm/sec Ao V2 VTI: 35.0 cm LV V1 VTI: 20.5 cm AV (velocity ratio): 0.59 PA V2 max: 89.9 cm/sec TR max poncho: 240.9 cm/sec TR max P.2 mmHg ECHO/Echo Complete Interpretation Summary Normal LV size. Left ventricular systolic function is normal. The estimated ejection fraction is 55 %. Pulmonary artery systolic pressure is 27 mmHg. Stage 1 diastolic dysfunction. Structurally normal valves. Ordering Physician: Aissatou Madsen Referring Physician: Jeff Portillo Performed By: Rachana Mina RDCS, RVT
--- NOTE | 2022-03-27 12:48 | CDU_ITS ---
Reason For Study: Carotid stenosis Rt. Velocities/BP Lt. Velocities/BP Prox CCA 51.3/6.9 cm/sec. Prox CCA 55.3/9.1 cm/sec. Mid CCA 51.3/10.7 cm/sec. Mid CCA 48.7/11.3 cm/sec. Dist CCA 46.6/11.6 cm/sec. Dist CCA 48.7/9.1 cm/sec. Prox ICA 55.3/12.4 cm/sec. Prox ICA 201.4/49.5 cm/sec. Mid ICA 47.6/15.7 cm/sec. Mid ICA 136.8/13.8 cm/sec. Dist ICA 55.3/16.8 cm/sec. Dist ICA 88.5/16 cm/sec. Rt. ICA/CCA = 1.08. Lt. ICA/CCA = 4.13. Prox ECA 100.3/6.9 cm/sec. Prox ECA 98.1/11.3 cm/sec. Rt. Vert. 50.9/12.4 cm/sec. Lt. Vert. 47/12.6 cm/sec. Right Extracranial There is homogeneous, smooth atherosclerotic plaque noted in the right common carotid artery. There is heterogeneous, irregular atherosclerotic plaque noted in the right internal carotid artery. The atherosclerotic plaque causes acoustic shadowing. There is heterogeneous, irregular atherosclerotic plaque noted in the right external carotid artery. Antegrade flow is noted in the right vertebral artery. Left Extracranial There is homogeneous, smooth atherosclerotic plaque noted in the left common carotid artery. There is heterogeneous, irregular atherosclerotic plaque noted in the left internal carotid artery. There is heterogeneous, irregular atherosclerotic plaque noted in the left external carotid artery. Antegrade flow is noted in the left vertebral artery. Procedure Carotid Duplex 15080. This is a Carotid Duplex examination using B-mode, color flow and specral Doppler. Exam performed in department. VL/Carotid Duplex Ultrasound Interpretation Summary Minimal calcific plaque with shadowing at the proximal right internal carotid a rtery with less than 50% stenosis Less than 50% stenosis right external carotid artery Irregular calcific plaque of the proximal left internal carotid artery with 50 to 69% stenosis. Less than 50% stenosis left external carotid artery Patent and antegrade bilateral vertebrals Findings appear unchanged from July 07, 2020 Ordering Physician: Aissatou Madsen Referring Physician: Aissatou Madsen Performed By: Kendra Dallas RVT
== END | disposition home or self-care (01) ==
LOC: CVS 12:39
PROVIDERS: PCP Nurse Practitioner Family; Referring Provider Internal Medicine Cardiovascular Disease; Visit Provider Nurse Practitioner Family
DX: I10 Essential (primary) hypertension (principal); I65.23 Occlusion and stenosis of bilateral carotid arteries; I25.10 Atherosclerotic heart disease of native coronary artery without angina pectoris
CPT/HCPCS: 93306; 93880

== ENCOUNTER → 2022-04-04 | Outpatient (CLI) | payer MEDICARE, BC, SELFPAY ==
[2022-04-04 17:42] LABS: Absolute Lymphocyte Count 1.43 X10^3/uL (0.83-4.51); Absolute Neutrophil Count 5.2 X10^3/uL (2.0-7.7); Basophil# 0.02 X10^3/uL; Basophil% 0.3 % (0-1); Eosinophil# 0.05 X10^3/uL; Eosinophils% 0.7 % (0-5); Hematocrit 44.5 % (40-54); Hemoglobin 14.9 g/dL (13.0-16.5); Lymphocyte # 1.43 X10^3/ul (0.83-4.51); Lymphocyte % 19.6 % (19-41); Mean Corp Hgb Conc 33.5 g/dL (32-36); Mean Corpuscular Hgb 29.6 pg (27.0-32.0); Mean Corpuscular Volume 88.5 fL (80-94); Mean Platelet Vol. 9.3 fl (6.2-12.0); Monocyte# 0.59 X10^3/uL; Monocyte% 8.1 % (0-10); NRBC Flagged by Analyzer 0 % (0-5); Platelet Count 319 K/mm3 (150-450); RBC Distribution Width CV 12.9 % (11.6-14.6); RBC Distribution Width SD 41.7 fl (35.1-43.9); Red Blood Count 5.03 M/mm3 (4.6-6.2); White Blood Count 7.3 K/mm3 (4.4-11.0)
[2022-04-04 19:06] LABS: ALB/GLOB Ratio 1.1 RATIO (0.9-2.4); AST(SGOT) 16 U/L (15-37); Alanine Aminotransfer ALT/SGPT 31 U/L (16-61); Albumin, Serum 4.2 g/dL (3.2-5.0); Alkaline Phosphatase 91 U/L (45-117); Anion Gap 7 (5-15); BUN 39 mg/dL (7-18); BUN/Creat Ratio 41.3 RATIO (10-20); Calcium,Total 10.2 mg/dL (8.5-10.1); Chloride 98 mmol/L (98-107); Creatinine, Serum 0.94 mg/dL (0.70-1.30); EST Glomerular Filtration Rate 81 mL/min (>60); Est Glom Filt Rate - Afr Amer 98 mL/min (>60); Globulin 3.8 g/dL (2.2-4.2); Glucose 86 mg/dL (74-106); Potassium 4.1 mmol/L (3.5-5.1); Sodium Level 134 mmol/L (136-145)
[2022-04-04 19:53] LABS: Hepatitis C Antibody Non-Reactive (Nonreactive); Vitamin D,25 Hydroxy 37.5 ng/mL
== END | disposition home or self-care (01) ==
LOC: POLAB3 16:29
PROVIDERS: PCP Nurse Practitioner Family; Visit Provider Family Medicine Geriatric Medicine
DX: I10 Essential (primary) hypertension (principal); E55.9 Vitamin D deficiency, unspecified; Z13.89 Encounter for screening for other disorder
CPT/HCPCS: 36415; 80053; 82306; 84443; 85025; 86803

== ENCOUNTER → 2022-04-09 | Outpatient (CLI) | payer MEDICARE, BC, SELFPAY | END | disposition home or self-care (01) | LOC: CVS 13:12 | PROVIDERS: PCP Family Medicine Geriatric Medicine; Visit Provider Internal Medicine Cardiovascular Disease | DX: R03.0 Elevated blood-pressure reading, without diagnosis of hypertension (principal) | CPT/HCPCS: 93788 ==

== ENCOUNTER → 2022-04-11 | Outpatient (CLI) | payer MEDICARE, BC, SELFPAY ==
--- NOTE | 2022-04-11 08:41 | AAAS_ITS ---
Reason For Study: Screening Aorta Measurements Aorta Doppler Measurements Proximal aorta measures2.06 x 2.03cm. in cross- Peak systolic flow velocities within the proximal sectional axis. aorta measure 72.4 cm/sec. Proximal aorta measures2.03cm. in longitudinal Peak systolic flow velocities within the mid aorta axis. measure 79.9 cm/sec. Mid aorta measures1.77 x 1.77cm. in cross- Peak systolic flow velocities within the distal sectional axis. aorta measure 81.8 cm/sec. Mid aorta measures1.86cm. in longitudinal axis. Distal aorta measures1.36 x 1.30cm. in cross- sectional axis. Distal aorta measures1.44cm. in longitudinal axis. Left Iliac Artery Left iliac artery measures 0.89 x 0.79 cm. in the cross-sectional axis. Left iliac artery measures 0.90 cm. in the longitudinal axis. Peak systolic velocity in the left iliac artery measures 163.2 cm/sec. Right Iliac Artery Right iliac artery measures 1.02 x 0.88 cm. in the cross-sectional axis. Right iliac artery measures 1.18 cm. in the longitudinal axis. Peak systolic velocity in the right iliac artery measures 190.7 cm/sec. Procedure Aorta IVC Iliac vasculature or bypass grafts 96212. The exam was of fair technical quality due to Abdominal Hernia and Bowel Gas. Exam performed in department. VL/AAA Screening Interpretation Summary Maximal aortic dimensions are noted proximally in the abdominal aorta at 2.06 x 2.03 cm diameter which is normal. Normal flow velocities are noted within the abdominal aorta Left common iliac artery measures 0.89 x 0.79 cm in diameter which is normal Right common iliac artery measures 1.02 x 0.88 cm in diameter which is normal Flow velocities slightly elevated and bilateral iliac arteries of undetermined significance. Examination is felt to be a fair technical quality secondary to the presence of an abdominal hernia and bowel gas Ordering Physician: Gerry Blancas Chi Referring Physician: Gerry Blancas Chi Performed By: Ricky Moreno RVT
== END | disposition home or self-care (01) ==
LOC: CVS 08:39
PROVIDERS: PCP Family Medicine Geriatric Medicine; Referring Provider Family Medicine Geriatric Medicine; Visit Provider Family Medicine Geriatric Medicine
DX: Z00.00 Encounter for general adult medical examination without abnormal findings (principal)
CPT/HCPCS: 76706

== ENCOUNTER → 2022-06-28 | Outpatient (CLI) | payer MEDICARE, BC, SELFPAY ==
[2022-06-28 16:11] LABS: Absolute Lymphocyte Count 1.46 X10^3/uL (0.83-4.51); Absolute Neutrophil Count 7.2 X10^3/uL (2.0-7.7); Basophil# 0.04 X10^3/uL; Basophil% 0.4 % (0-1); Eosinophil# 0.05 X10^3/uL; Eosinophils% 0.5 % (0-5); Hematocrit 40.8 % (40-54); Hemoglobin 13.1 g/dL (13.0-16.5); Lymphocyte # 1.46 X10^3/ul (0.83-4.51); Mean Corp Hgb Conc 32.1 g/dL (32-36); Mean Corpuscular Hgb 29.6 pg (27.0-32.0); Mean Corpuscular Volume 92.3 fL (80-94); Mean Platelet Vol. 9.4 fl (6.2-12.0); Monocyte# 0.93 X10^3/uL; Monocyte% 9.6 % (0-10); NRBC Flagged by Analyzer 0 % (0-5); Neutrophil % 74.2 % (47-70); Platelet Count 350 K/mm3 (150-450); RBC Distribution Width CV 13.3 % (11.6-14.6); Red Blood Count 4.42 M/mm3 (4.6-6.2); White Blood Count 9.7 K/mm3 (4.4-11.0)
[2022-06-28 16:30] LABS: ALB/GLOB Ratio 0.9 RATIO (0.9-2.4); AST(SGOT) 15 U/L (15-37); Alanine Aminotransfer ALT/SGPT 27 U/L (16-61); Albumin, Serum 3.8 g/dL (3.2-5.0); Alkaline Phosphatase 96 U/L (45-117); Anion Gap 6 (5-15); BUN 40 mg/dL (7-18); Calcium,Total 9.7 mg/dL (8.5-10.1); Chloride 103 mmol/L (98-107); Creatinine, Serum 1.48 mg/dL (0.70-1.30); EST Glomerular Filtration Rate 48 mL/min (>60); Est Glom Filt Rate - Afr Amer 58 mL/min (>60); Globulin 4.2 g/dL (2.2-4.2); Glucose 79 mg/dL (74-106); Potassium 5.2 mmol/L (3.5-5.1); Sodium Level 138 mmol/L (136-145); Thyroid Stim Hormone (TSH) 1.35 uIU/mL (0.358-3.74)
== END | disposition home or self-care (01) ==
LOC: POLAB3 13:09
PROVIDERS: PCP Family Medicine Geriatric Medicine; Visit Provider Family Medicine Geriatric Medicine
DX: I10 Essential (primary) hypertension (principal); E55.9 Vitamin D deficiency, unspecified
CPT/HCPCS: 36415; 80053; 82306; 84443; 85025

== ENCOUNTER → 2022-06-30 | Outpatient (CLI) | payer MEDICARE, BC, SELFPAY ==
[2022-06-30 16:44] LABS: Anion Gap 6 (5-15); BUN 42 mg/dL (7-18); BUN/Creat Ratio 26.4 RATIO (10-20); Calcium,Total 9.7 mg/dL (8.5-10.1); Chloride 100 mmol/L (98-107); Creatinine, Serum 1.59 mg/dL (0.70-1.30); EST Glomerular Filtration Rate 44 mL/min (>60); Est Glom Filt Rate - Afr Amer 54 mL/min (>60); Glucose 106 mg/dL (74-106); Potassium 4.4 mmol/L (3.5-5.1); Sodium Level 135 mmol/L (136-145)
== END | disposition home or self-care (01) ==
LOC: LAB.FUTURE 16:04
PROVIDERS: PCP Family Medicine Geriatric Medicine; Referring Provider Family Medicine Geriatric Medicine; Visit Provider Family Medicine Geriatric Medicine
DX: E87.5 Hyperkalemia (principal)
CPT/HCPCS: 80048

== ENCOUNTER → 2022-09-27 | Outpatient (CLI) | payer MEDICARE, BC, SELFPAY ==
[2022-09-27 12:33] LABS: Absolute Lymphocyte Count 1.29 X10^3/uL (0.83-4.51); Absolute Neutrophil Count 4.7 X10^3/uL (2.0-7.7); Basophil# 0.03 X10^3/uL; Basophil% 0.4 % (0-1); Eosinophil# 0.05 X10^3/uL; Eosinophils% 0.7 % (0-5); Hemoglobin 13.4 g/dL (13.0-16.5); Lymphocyte # 1.29 X10^3/ul (0.83-4.51); Lymphocyte % 19.1 % (19-41); Mean Corp Hgb Conc 32.7 g/dL (32-36); Mean Corpuscular Hgb 30.7 pg (27.0-32.0); Mean Platelet Vol. 8.9 fl (6.2-12.0); Monocyte# 0.68 X10^3/uL; Monocyte% 10.1 % (0-10); NRBC Flagged by Analyzer 0 % (0-5); Neutrophil # 4.67 X10^3/uL (2.7-7.7); Neutrophil % 69.4 % (47-70); Platelet Count 290 K/mm3 (150-450); RBC Distribution Width CV 11.9 % (11.6-14.6); RBC Distribution Width SD 41.1 fl (35.1-43.9); Red Blood Count 4.36 M/mm3 (4.6-6.2); White Blood Count 6.7 K/mm3 (4.4-11.0)
[2022-09-27 13:12] LABS: AST(SGOT) 15 U/L (15-37); Alanine Aminotransfer ALT/SGPT 25 U/L (16-61); Albumin, Serum 3.9 g/dL (3.2-5.0); Alkaline Phosphatase 76 U/L (45-117); Anion Gap 4 (5-15); BUN 45 mg/dL (7-18); BUN/Creat Ratio 33.1 RATIO (10-20); Calcium,Total 9.9 mg/dL (8.5-10.1); Chloride 101 mmol/L (98-107); Creatinine, Serum 1.36 mg/dL (0.70-1.30); EST Glomerular Filtration Rate 53 mL/min (>60); Est Glom Filt Rate - Afr Amer 64 mL/min (>60); Glucose 95 mg/dL (74-106); Potassium 4.9 mmol/L (3.5-5.1); Protein, Total 7.9 g/dL (6.4-8.2); Sodium Level 133 mmol/L (136-145); Thyroid Stim Hormone (TSH) 1.32 uIU/mL (0.358-3.74)
== END | disposition home or self-care (01) ==
PROVIDERS: PCP Family Medicine Geriatric Medicine; Referring Provider Family Medicine Geriatric Medicine; Visit Provider Family Medicine Geriatric Medicine
DX: I10 Essential (primary) hypertension (principal); E55.9 Vitamin D deficiency, unspecified
CPT/HCPCS: 36415; 80053; 82306; 84443; 85025

== ENCOUNTER → 2022-11-01 | Outpatient (CLI) | payer MEDICARE, BC, SELFPAY ==
--- NOTE | 2022-11-01 08:47 | RDU_ITS ---
Reason For Study: Left renal artery stenosis Right Renal Artery Left Renal Artery Right renal artery ostium Left renal artery ostium 302.5/36.0 188.1/22.3 RSV/EDV. PSV/EDV. Right renal artery proximal Left renal artery proximal PSV/EDV 138.9/17.1 PSV/EDV. 289.8/56.9 . Right renal artery mid 130.7/21.0 Left renal artery mid 125.9/19.7 PSV/EDV. PSV/EDV . Right renal artery distal Left renal artery distal 115.6/24.9 139.4/23.2 PSV/EDV. PSV/EDV. Right RAR 3.2. Left RAR 5.2. Right Renal Parenchyma Left Renal Parenchyma Upper Pole Medula 48.3/7.7 PSV/EDV. Left upper pole medulla 22.5/6.5 Right upper pole medulla EDR .16 . PSV/EDV . Right upper pole medulla R.I. .84 . Left upper pole medulla EDR .29 . Upper Jun Cortx 16.9/4.7 PSV/EDV. Left upper pole medulla R.I. .71 . Right upper pole cortex EDR .28 . UP Cortex 34.8/9.0 PSV/EDV. Right upper pole cortex R.I. .72 . Left upper pole cortex EDR .26 . Right lower Pole medulla 26.2/5.9 Left upper pole cortex R.I. .74 . PSV/EDV . Left lower Pole medulla 44.6/9.0 Right lower pole medulla EDR .23 . PSV/EDV . Right lower pole medulla R.I. .77 . Left lower pole medulla EDR .2 . Lower Pole Cortex 22.5/5.9 PSV/EDV. Left lower pole medulla R.I. .8 . Right lower pole cortex EDR .26 . Lower Pole Cortx 28.0/4.7 PSV/EDV. Right lower pole cortex R.I. .74 . Left lower pole cortex EDR .17 . Right Renal Hilar Left lower pole cortex R.I. .83 . Right Hilar avg 51.1/8.3 PSV/EDV. Left Renal Hilar Right hilar acceleration time 50 LT Hilar avg 42.2/9.8 PSV/EDV . m/sec. Left hilar acceleration time 60 Right Renal Dimensions m/sec. Right kidney size 10.99 cm . Left Renal Dimensions Right cortical dimension 1.43 cm . Left kidney size 11.24 cm . Left cortical dimension 1.6 cm . Hypoechoic area on the kidney measuring 4.32 x 2.25 cm. Area is nonvascular. Aorta Proximal abdominal aorta peak systolic velocity is 58.6 cm/sec . Proximal abdominal aorta 1.8 x 1.8 cm . Distal abdominal aorta peak systolic velocity is 81.9 cm/sec . Distal abdominal aorta 1.52 x 1.46 cm . Normal renal veins bilat. Difficult study due to bowel gas. VL/Renal Artery Duplex Ultrasound Interpretation Summary Right renal artery patent with elevated velocities and normal renal-aortic rati o indicating no significant stenosis. Left renal artery patent with >60% stenosis Right renal vein patent Left renal vein patent Right kidney normal in size Left kidney normal in size Ordering Physician: Julia Swan Performed By: Derrell Bryant RVT
== END | disposition home or self-care (01) ==
LOC: CVS 08:46
PROVIDERS: PCP Family Medicine Geriatric Medicine; Referring Provider Internal Medicine Nephrology; Visit Provider Internal Medicine Nephrology
DX: I70.1 Atherosclerosis of renal artery (principal)
CPT/HCPCS: 93975

== ENCOUNTER → 2022-11-20 | Outpatient (CLI) | payer MEDICARE, BC, SELFPAY | END | disposition home or self-care (01) | LOC: PSN 10:47 | PROVIDERS: PCP Family Medicine Geriatric Medicine; Referring Provider Nurse Practitioner Family; Visit Provider Nurse Practitioner Family | DX: R00.1 Bradycardia, unspecified (principal); I48.92 Unspecified atrial flutter; R00.0 Tachycardia, unspecified | CPT/HCPCS: 93225; 93226 ==

== ENCOUNTER → 2022-11-29 | Outpatient (CLI) | payer MEDICARE, BC, SELFPAY ==
[2022-11-29 13:31] LABS: Albumin, Serum 3.5 g/dL (3.2-5.0); BUN 42 mg/dL (7-18); BUN/Creat Ratio 29.4 RATIO (10-20); Calcium,Total 9.2 mg/dL (8.5-10.1); Chloride 104 mmol/L (98-107); Creatinine, Serum 1.43 mg/dL (0.70-1.30); EST Glomerular Filtration Rate 50 mL/min (>60); Est Glom Filt Rate - Afr Amer 61 mL/min (>60); Glucose 106 mg/dL (74-106); Phosphorus 3.8 mg/dL (2.5-4.9); Potassium 4.5 mmol/L (3.5-5.1); Sodium Level 137 mmol/L (136-145)
== END | disposition home or self-care (01) ==
PROVIDERS: PCP Family Medicine Geriatric Medicine; Visit Provider Internal Medicine Nephrology
DX: N18.31 Chronic kidney disease, stage 3a (principal)
CPT/HCPCS: 36415; 80069

== ENCOUNTER → 2022-12-27 | Outpatient (CLI) | payer MEDICARE, BC, SELFPAY ==
[2022-12-27 13:32] LABS: Absolute Lymphocyte Count 1.57 X10^3/uL (0.83-4.51); Absolute Neutrophil Count 7.1 X10^3/uL (2.0-7.7); Basophil# 0.04 X10^3/uL; Basophil% 0.4 % (0-1); Eosinophil# 0.16 X10^3/uL; Eosinophils% 1.6 % (0-5); Hematocrit 40.3 % (40-54); Hemoglobin 12.8 g/dL (13.0-16.5); Lymphocyte # 1.57 X10^3/ul (0.83-4.51); Lymphocyte % 15.5 % (19-41); Mean Corp Hgb Conc 31.8 g/dL (32-36); Mean Corpuscular Hgb 29.6 pg (27.0-32.0); Mean Corpuscular Volume 93.3 fL (80-94); Monocyte# 1.21 X10^3/uL; NRBC Flagged by Analyzer 0 % (0-5); Neutrophil # 7.08 X10^3/uL (2.7-7.7); Neutrophil % 70.1 % (47-70); Platelet Count 375 K/mm3 (150-450); RBC Distribution Width CV 12.2 % (11.6-14.6); RBC Distribution Width SD 42.2 fl (35.1-43.9); Red Blood Count 4.32 M/mm3 (4.6-6.2); White Blood Count 10.1 K/mm3 (4.4-11.0)
[2022-12-27 13:49] LABS: Vitamin D,25 Hydroxy 38.6 ng/mL
[2022-12-27 13:53] LABS: ALB/GLOB Ratio 0.9 RATIO (0.9-2.4); AST(SGOT) 15 U/L (15-37); Alanine Aminotransfer ALT/SGPT 34 U/L (16-61); Albumin, Serum 3.8 g/dL (3.2-5.0); Alkaline Phosphatase 96 U/L (45-117); Anion Gap 3 (5-15); BUN 30 mg/dL (7-18); BUN/Creat Ratio 21.7 RATIO (10-20); Calcium,Total 9.7 mg/dL (8.5-10.1); Chloride 101 mmol/L (98-107); Creatinine, Serum 1.38 mg/dL (0.70-1.30); EST Glomerular Filtration Rate 52 mL/min (>60); Est Glom Filt Rate - Afr Amer 63 mL/min (>60); Globulin 4.3 g/dL (2.2-4.2); Glucose 103 mg/dL (74-106); Phosphorus 3.2 mg/dL (2.5-4.9); Potassium 4.8 mmol/L (3.5-5.1); Protein, Total 8.1 g/dL (6.4-8.2); Sodium Level 134 mmol/L (136-145); Thyroid Stim Hormone (TSH) 1.31 uIU/mL (0.358-3.74)
== END | disposition home or self-care (01) ==
LOC: POLAB3 11:04
PROVIDERS: PCP Family Medicine Geriatric Medicine; Visit Provider Internal Medicine Nephrology
DX: I12.9 Hypertensive chronic kidney disease with stage 1 through stage 4 chronic kidney disease, or unspecified chronic kidney disease (principal); N18.31 Chronic kidney disease, stage 3a; E55.9 Vitamin D deficiency, unspecified
CPT/HCPCS: 36415; 80053; 82306; 84100; 84443; 85025

== ENCOUNTER → 2023-04-09 | Outpatient (CLI) | payer MEDICARE, BC, SELFPAY ==
[2023-04-09 12:36] LABS: Albumin, Serum 3.9 g/dL (3.2-5.0); BUN 30 mg/dL (7-18); BUN/Creat Ratio 26.5 RATIO (10-20); Calcium,Total 9.4 mg/dL (8.5-10.1); Chloride 102 mmol/L (98-107); Creatinine, Serum 1.13 mg/dL (0.70-1.30); EST Glomerular Filtration Rate 66 mL/min (>60); Est Glom Filt Rate - Afr Amer 80 mL/min (>60); Glucose 120 mg/dL (74-106); Phosphorus 2.5 mg/dL (2.5-4.9); Sodium Level 136 mmol/L (136-145)
== END | disposition home or self-care (01) ==
LOC: POLAB3 10:10
PROVIDERS: PCP Family Medicine Geriatric Medicine; Visit Provider Internal Medicine Nephrology
DX: N18.31 Chronic kidney disease, stage 3a (principal)
CPT/HCPCS: 36415; 80069

== ENCOUNTER → 2023-04-17 | Outpatient (CLI) | payer MEDICARE, BC, SELFPAY ==
[2023-04-17 15:11] LABS: Absolute Lymphocyte Count 1.64 X10^3/uL (0.83-4.51); Absolute Neutrophil Count 5.8 X10^3/uL (2.0-7.7); Basophil# 0.03 X10^3/uL; Basophil% 0.4 % (0-1); Eosinophil# 0.06 X10^3/uL; Eosinophils% 0.7 % (0-5); Hemoglobin 13.7 g/dL (13.0-16.5); Lymphocyte # 1.64 X10^3/ul (0.83-4.51); Lymphocyte % 19.5 % (19-41); Mean Corp Hgb Conc 33.4 g/dL (32-36); Mean Corpuscular Hgb 29.9 pg (27.0-32.0); Mean Corpuscular Volume 89.5 fL (80-94); Mean Platelet Vol. 9.2 fl (6.2-12.0); Monocyte# 0.88 X10^3/uL; Monocyte% 10.5 % (0-10); NRBC Flagged by Analyzer 0 % (0-5); Neutrophil # 5.79 X10^3/uL (2.7-7.7); Neutrophil % 68.7 % (47-70); Platelet Count 303 K/mm3 (150-450); RBC Distribution Width CV 12.8 % (11.6-14.6); RBC Distribution Width SD 41.4 fl (35.1-43.9); Red Blood Count 4.58 M/mm3 (4.6-6.2); White Blood Count 8.4 K/mm3 (4.4-11.0)
[2023-04-17 15:39] LABS: Vitamin D,25 Hydroxy 30.9 ng/mL
[2023-04-17 15:54] LABS: AST(SGOT) 17 U/L (15-37); Alanine Aminotransfer ALT/SGPT 24 U/L (16-61); Albumin, Serum 4.2 g/dL (3.2-5.0); Alkaline Phosphatase 79 U/L (45-117); Anion Gap 6 (5-15); BUN 35 mg/dL (7-18); BUN/Creat Ratio 28.7 RATIO (10-20); Calcium,Total 10.2 mg/dL (8.5-10.1); Chloride 101 mmol/L (98-107); Creatinine, Serum 1.22 mg/dL (0.70-1.30); EST Glomerular Filtration Rate 60 mL/min (>60); Est Glom Filt Rate - Afr Amer 73 mL/min (>60); Glucose 87 mg/dL (74-106); Potassium 4.5 mmol/L (3.5-5.1); Protein, Total 8.2 g/dL (6.4-8.2); Sodium Level 135 mmol/L (136-145); Thyroid Stim Hormone (TSH) 1.43 uIU/mL (0.358-3.74)
== END | disposition home or self-care (01) ==
LOC: POLAB3 14:04
PROVIDERS: PCP Family Medicine Geriatric Medicine; Visit Provider Family Medicine Geriatric Medicine
DX: I10 Essential (primary) hypertension (principal); E55.9 Vitamin D deficiency, unspecified
CPT/HCPCS: 36415; 80053; 82306; 84443; 85025

== ENCOUNTER → 2023-08-23 | Outpatient (CLI) | payer MEDICARE, BC, SELFPAY ==
[2023-08-23 11:59] LABS: Anion Gap 4 (5-15); BUN 27 mg/dL (7-18); BUN/Creat Ratio 24.8 RATIO (10-20); Calcium,Total 9.6 mg/dL (8.5-10.1); Chloride 103 mmol/L (98-107); Creatinine, Serum 1.09 mg/dL (0.70-1.30); EST Glomerular Filtration Rate 69 mL/min (>60); Est Glom Filt Rate - Afr Amer 83 mL/min (>60); Glucose 96 mg/dL (74-106); Potassium 4.5 mmol/L (3.5-5.1); Sodium Level 135 mmol/L (136-145)
== END | disposition home or self-care (01) ==
LOC: PSN 10:13
PROVIDERS: PCP Family Medicine Geriatric Medicine; Referring Provider Nurse Practitioner Gerontology; Visit Provider Nurse Practitioner Gerontology
DX: I48.92 Unspecified atrial flutter (principal); I48.91 Unspecified atrial fibrillation; I10 Essential (primary) hypertension
CPT/HCPCS: 36415; 80048; 93225; 93226

== ENCOUNTER → 2023-09-03 | Outpatient (CLI) | payer MEDICARE, BC, SELFPAY ==
--- NOTE | 2023-09-03 17:20 | RAD_ITS ---
STUDY: X-RAY - RIGHT ANKLE REASON FOR EXAM: Male, 82 years old. RIGHT ANKLE PAIN TECHNIQUE: 3 view(s) of the ankle. COMPARISON: None. FINDINGS: Normal visualized distal tibia and fibula. Normal medial and lateral malleoli. Normal tibiotalar articulation and ankle mortise. Normal visualized talus and calcaneus. The visualized subtalar, talonavicular, calcaneocuboid and tarsal articulations are normal. The soft tissue structures are unremarkable. RAD/Ankle min 3 Views IMPRESSION: Normal x-ray examination of the ankle. Electronically Signed: Shadi Gutiérrez MD at 16:54 EDT ,
== END | disposition home or self-care (01) ==
PROVIDERS: PCP Family Medicine Geriatric Medicine; Referring Provider Family Medicine Geriatric Medicine; Visit Provider Family Medicine Geriatric Medicine
DX: M25.571 Pain in right ankle and joints of right foot (principal)
CPT/HCPCS: 73610

== ENCOUNTER → 2023-10-16 | Outpatient (CLI) | payer MEDICARE, BC, SELFPAY ==
[2023-10-16 11:37] LABS: Absolute Lymphocyte Count 1.04 X10^3/uL (0.83-4.51); Absolute Neutrophil Count 6.3 X10^3/uL (2.0-7.7); Basophil# 0.02 X10^3/uL; Basophil% 0.2 % (0-1); Eosinophil# 0.03 X10^3/uL; Eosinophils% 0.4 % (0-5); Hematocrit 42.2 % (40-54); Hemoglobin 13.7 g/dL (13.0-16.5); Lymphocyte # 1.04 X10^3/ul (0.83-4.51); Lymphocyte % 12.7 % (19-41); Mean Corp Hgb Conc 32.5 g/dL (32-36); Mean Corpuscular Hgb 29.5 pg (27.0-32.0); Mean Corpuscular Volume 90.9 fL (80-94); Mean Platelet Vol. 8.9 fl (6.2-12.0); Monocyte# 0.72 X10^3/uL; Monocyte% 8.8 % (0-10); NRBC Flagged by Analyzer 0 % (0-5); Neutrophil # 6.34 X10^3/uL (2.7-7.7); Neutrophil % 77.4 % (47-70); Platelet Count 275 K/mm3 (150-450); RBC Distribution Width CV 12.7 % (11.6-14.6); RBC Distribution Width SD 41.3 fl (35.1-43.9); Red Blood Count 4.64 M/mm3 (4.6-6.2); White Blood Count 8.2 K/mm3 (4.4-11.0)
[2023-10-16 12:23] LABS: Vitamin D,25 Hydroxy 33.4 ng/mL
[2023-10-16 12:34] LABS: ALB/GLOB Ratio 1.2 RATIO (0.9-2.4); AST(SGOT) 21 U/L (15-37); Alanine Aminotransfer ALT/SGPT 24 U/L (16-61); Albumin, Serum 4.1 g/dL (3.2-5.0); Alkaline Phosphatase 80 U/L (45-117); Anion Gap 5 (5-15); BUN 20 mg/dL (7-18); BUN/Creat Ratio 19.8 RATIO (10-20); Calcium,Total 10.1 mg/dL (8.5-10.1); Chloride 103 mmol/L (98-107); Creatinine, Serum 1.01 mg/dL (0.70-1.30); EST Glomerular Filtration Rate 75 mL/min (>60); Est Glom Filt Rate - Afr Amer 91 mL/min (>60); Globulin 3.4 g/dL (2.2-4.2); Glucose 97 mg/dL (74-106); Potassium 4.3 mmol/L (3.5-5.1); Protein, Total 7.5 g/dL (6.4-8.2); Sodium Level 138 mmol/L (136-145)
== END | disposition home or self-care (01) ==
PROVIDERS: PCP Family Medicine Geriatric Medicine; Referring Provider Family Medicine Geriatric Medicine; Visit Provider Family Medicine Geriatric Medicine
DX: E55.9 Vitamin D deficiency, unspecified (principal); I10 Essential (primary) hypertension
CPT/HCPCS: 36415; 80053; 82306; 84443; 85025

== ENCOUNTER 2023-11-11 10:24 | Day surgery (SDC) | payer MEDICARE, BC, SELFPAY ==
--- NOTE | 2023-10-16 12:45 | RAD_ITS ---
EXAM: XR CHEST, 2 VIEWS CLINICAL INDICATION: Cardioversion TECHNIQUE: Frontal and lateral views of the chest. COMPARISON: No relevant prior studies available. FINDINGS: LUNGS AND PLEURAL SPACES: Unremarkable. No consolidation or edema. No pneumothorax. No effusion. HEART: Unremarkable. Cardiac silhouette not enlarged. MEDIASTINUM: Central airways and mediastinal contour are unremarkable. BONES/JOINTS: Unremarkable. No acute fracture. SOFT TISSUES: Unremarkable. RAD/Chest PA and Lateral IMPRESSION: No radiographic evidence of acute cardiopulmonary disease. Electronically Signed: Ricky Whelan MD at 0:05 EDT ,
--- NOTE | 2023-11-04 15:25 | HP.PCM_ITS ---
History and Physical Date of Admission: 11/11/23 This is a 83-year-old man who presents to the office today for a cardiovascular follow-up visit. He was previously seen to reestablish his care with us for elevated blood pressures. His blood pressures apparently have been elevated in your office and has been on a variety of medications. He denies any chest pain or shortness of breath or paroxysmal nocturnal dyspnea or palpitations though he says occasionally he has palpitations. He tells me that he had a coronary calcium score in 2019 which was 313 stress test demonstrated no evidence of ischemia at a high workload. His previous echocardiogram from 2019 demonstrated an ejection fraction of 60%. His echocardiogram from 04/12 demonstrated an ejection fraction of 55%, stage 1 diastolic dysfunction, and normal heart valves. From a cardiac standpoint, the patient is doing well. He denies any palpitations, chest pain, pressure or heaviness. He does have occasional SOB with walking up hill. This is nothing new or worsening. He denies Orthopnea, and PND. He does wear a CPAP nightly. He does not have bleeding issues; no blood in urine, stool or nosebleeds. He does acknowledge a decrease in energy level. He denies myalgias, or claudication. He does not have edema, or sudden weight gain. He denies dizziness, lightheadedness, syncopal or near syncopal episodes, and headaches. Intake Vital Signs See EMR Allergies See EMR Medications See EMR [facility] Medical History History of basal cell carcinoma of eyelid Carotid artery disease Epistaxis Hypernatremia Low testosterone in male Essential (primary) hypertension Hyperlipidemia GERD (gastroesophageal reflux disease) Arthritis Erectile dysfunction BPH (benign prostatic hyperplasia) History of Lyme disease Surgical History History of repair of rotator cuff History of total left knee replacement History of total right knee replacement History of prostatectomy (~2012) History of cataract extraction (~2014) Family History Father , 66 yrs Myocardial infarctionMother Hypertension Social History Smoking Status: Former smoker how long ago did patient quit smokin alcohol intake: current alcohol intake frequency: a few times a week substance use type: does not use caffeine: Yes (None in the last 2 weeks) Type: coffee ROS Const Const: Positive for fatigue; Negative for weakness, fever(s), headache(s), chills, frequent falls, weight gain or weight loss Eyes Eyes: Negative for blind spots, loss of peripheral vision, transient loss of vision, blurry vision, change in vision, double vision, floaters or tunnel vision ENT ENT: Negative for headache(s), dizziness, Nosebleed/epistaxis, balance problems or neck pain Cardio Chest Pain: No Palpitations: No Edema: None Muscle aches with walking: None Resp Respiratory: Positive for SOB with activity (climbing up hill); Negative for SOB at rest or SOB orthopnea\SOB lying down GI GI: Negative nausea, vomiting, heartburn, bloating, vomiting blood/hematemesis, bright, red blood in stools or black,tarry stools Musc Musc: Negative for muscle aches/ myalgia, muscle weakness, joint pain or balance problems Neuro Neuro: Negative for dizziness, lightheadedness, near syncope, syncope, orthostatic symptoms, frequent falls, headache(s), weakness, blurry vision or double vision Danie Hematologic/Lymphatic: Negative for easy bleeding or easy bruising Endo Endo: Positive for fatigue Cardiology Exam Const Appearance: cooperative, healthy appearing, no acute distress, well developed and well groomed Nutritional Appearance: average body habitus and well nourished Orientation: alert, awake and oriented x3 Head Head: normal to inspection, normocephalic and atraumatic Ears: hearing grossly normal bilaterally and external ears normal Nose: external nose normal and nares normal Face and Sinus: face symmetric Eyes General: appearance normal, both eyes and all related structures Eyelids: eyelids normal Conjunctivae: conjunctivae normal Pupils: PERRL EOM: EOM intact bilaterally Neck Neck: normal visual inspection, trachea midline and no JVD JVD: +5 Carotids: normal carotid upstroke and bounding pulses Chest Chest inspection: normal inspection of the chest, symmetric chest movement and normal respiratory effort Auscultation: Bilateral: Clear to Auscultation Cardio Palpation: normal PMI Rhythm: irregularly irregular Heart sounds: S1 normal, S2 normal and normal, physiologic split S2; Negative rub, gallop or murmur GI GI: normal to inspection and soft Neuro General: patient alert, patient awake, patient oriented x3, gait normal, moves all extremities and no focal sensory deficit Skin Skin: no rashes or lesions noted Extremities Pulses: Normal: Right Posterior Tibial Pulse, Left Posterior Tibial Pulse, Right Radial Pulse and Left Radial Pulse Lower Extremity Edema: None: Bilateral Musculoskel Musculoskeletal: No joint tenderness Psych Psychological: normal affect Supplemental Info Supplemental Information Echocardiogram 03/27/2022: Interpretation Summary Normal LV size. Left ventricular systolic function is normal. The estimated ejection fraction is 55 %. Pulmonary artery systolic pressure is 27 mmHg. Stage 1 diastolic dysfunction. Structurally normal valves. ? Echocardiogram from 09/03/2018: Interpretation Summary Normal LV size. Moderate concentric left ventricular hypertrophy. Left ventricular systolic function is normal. The estimated ejection fraction is 60 %. Stage 1 diastolic dysfunction. Contrast injection was performed. Stress test from 09/03/2018: Conclusion: Normal exercise myocardial perfusion stress test at a high workload. Preserved ejection fraction. Carotid duplex ultrasound 03/27/2022: Interpretation Summary Minimal calcific plaque with shadowing at the proximal right internal carotid artery with less than 50% stenosis Less than 50% stenosis right external carotid artery ? Irregular calcific plaque of the proximal left internal carotid artery with 50 to 69% stenosis. Less than 50% stenosis left external carotid artery ? Patent and antegrade bilateral vertebrals Carotid duplex ultrasound from 07/07/2020: Interpretation Summary Mild (<50%) stenosis right extracranial internal carotid. Moderate (50-69%) stenosis left extracranial internal carotid. Flow within the vertebral arteries is antegrade bilaterally. Renal artery duplex from 03/09/2022: Interpretation Summary Right renal artery with elevated velocities but with a normal renal aortic ratio indicating no significant stenosis. Left renal artery with elevated velocities but with a normal renal aortic ratio indicating no significant stenosis. Right renal vein patent Left renal vein patent Right kidney normal in size Left kidney normal in size Coronary angiography CT scan from 10/07/2018: - Findings Left Main (LM): 65 Left Anterior Descending (LAD): 183 Left Circumflex (LCX): 52 Right Coronary Artery (RCA): 13 Total Agatston Score: 313 Percentile Rankin to 50% Calcium Score: 101 - 400 Moderate non-obstructive coronary artery disease highly like Conclusion: The above is suggestive of moderate atherosclerotic plaquing. Full evaluation of cardiac risk should include an assessment of all conventional risk factors and the scores and percentile rankings reported herein should be evaluated in this context. Holter monitor from 08/23/2023: Atrial Fibrillation with occasional PVCs Minimum heart rate 43 bpm. Average heart rate 76 bpm. Maximum heart rate 120 bpm. Ventricular ectopy 0.1%. Supraventricular ectopy 0.0%. Longest R to R interval 2.3 seconds. Atrial fibrillation 99.9%. No ventricular tachycardia noted. The patient kept at 24 hour diary. No activity or symptoms recorded. Assessment and Plan Assessment and Plan (1) Atrial flutter by electrocardiogram: Status: Acute Plan: Patient has a history of atrial flutter. His echocardiogram from 03/27/2022 demonstrated ejection fraction of 55%, and normal atrial size. He appears to be in an irregularly irregular rhythm on exam today. Patient's Holter monitor from 08/23/2023 demonstrated atrial fibrillation with an average heart rate of 76 bpm. Patient would like to proceed with cardioversion. Instructions were reviewed, and he verbalized understanding. He was encouraged to not miss any doses of Eliquis. He will continue metoprolol succinate 25 mg daily, and Eliquis 5 mg twice daily. He will continue to monitor for any concerning symptoms of atrial fibrillation.
[2023-11-08 08:28] VITALS: BMI 29.2
--- NOTE | 2023-11-11 12:28 | PRO.PCM_ITS ---
Procedure Report Date of Procedure: 11/11/23 DC cardioversion. 83-year-old male with a history of chronic persistent atrial flutter sympto matic. Patient has been on therapeutic anticoagulation. The patient was brought to cardiac catheterization lab in the postabsorptive nonsedated state. Informed consent was obtained. Anterior-posterior pads were applied. The patient was seen by Dr. Peace of the critical care division. 40 mg of intravenous propofol was administered and 200 J of synchronized DC cardioversion energy were applied with prompt reversal to sinus rhythm. Patient tolerated the procedure well. Conclusion: Successful DC cardioversion from atrial fibrillation to sinus rhythm. Follow-up as per office protocol.
--- NOTE | 2023-11-11 13:22 | PRO.PCM_ITS ---
Procedure Report Date of Procedure: 11/11/23 CONSCIOUS SEDATION REPORT DATE OF SERVICE: November 11, 2023 BRIEF HISTORY OF PRESENT ILLNESS: The patient is an 83-year-old male who presented to [facility] for an elective outpatient cardioversion due to underlying atrial fibrillation. The patient has never previously undergone a cardioversion. He denied any prior anesthetic complications. The patient is systemically anticoagulated on Eliquis, without any recent missed doses. His last surface echocardiogram demo nstrated an ejection fraction of approximately 55%. PHYSICAL EXAMINATION: VITAL SIGNS: Reviewed and were acceptable. GENERAL: The patient is a male, in no apparent distress, speaking in full sentences. HEENT: Normocephalic, atraumatic. Mucous membranes are moist and pink. Good mouth opening noted. Trachea is midline. CHEST: S1, S2 irregularly irregular. No murmurs, rubs or gallops were noted. LUNGS: Clear to auscultation bilaterally without appreciable wheezes, rales or rhonchi. ABDOMEN: Soft, nontender, nondistended. Positive bowel sounds. EXTREMITIES: There is no clubbing, cyanosis or edema. ASA Class: II DESCRIPTION OF PROCEDURE: After confirmation of informed consent, the patient's anesthesia plan was reviewed in detail. Propofol was chosen. Risks and benefits were reviewed and the patient agreed to proceed. At 1222, the patient was given 40 mg of propofol. The patient achieved an appropriate level of sedation and was given a 200 joule synchronized cardioversion by Dr. Portillo at the bedside. This was successful in achieving normal sinus rhythm. The patient was monitored until 1237, at which time he reached his baseline mental status and function. The patient tolerated the procedure well. COMPLICATIONS: None ESTIMATED BLOOD LOSS: None RECOMMENDATIONS: Okay to recover in usual fashion. Procedures Pulmonary Pulmonary Procedures /Diagnostic Testin Con Sedation
== END 2023-11-11 13:20 | disposition home or self-care (01) ==
PROVIDERS: PCP Family Medicine Geriatric Medicine; Referring Provider Internal Medicine Cardiovascular Disease; Visit Provider Internal Medicine Cardiovascular Disease
DX: I48.91 Unspecified atrial fibrillation (principal); I48.92 Unspecified atrial flutter; I10 Essential (primary) hypertension; E78.5 Hyperlipidemia, unspecified; K21.9 Gastro-esophageal reflux disease without esophagitis; M19.90 Unspecified osteoarthritis, unspecified site; N52.9 Male erectile dysfunction, unspecified; N40.0 Benign prostatic hyperplasia without lower urinary tract symptoms; Z79.899 Other long term (current) drug therapy; Z87.891 Personal history of nicotine dependence
CPT/HCPCS: 71046; 92960; 93005; J7040

== ENCOUNTER → 2024-01-13 | Outpatient (CLI) | payer MEDICARE, BC, SELFPAY | END | disposition home or self-care (01) | LOC: RAD 11:59 | PROVIDERS: PCP Family Medicine Geriatric Medicine; Referring Provider Family Medicine Geriatric Medicine; Visit Provider Family Medicine Geriatric Medicine | DX: M54.50 Low back pain, unspecified (principal) | CPT/HCPCS: 72110 ==

== ENCOUNTER → 2024-01-20 | Outpatient (CLI) | payer MEDICARE, BC, SELFPAY ==
[2024-01-20 13:23] LABS: BUN 38 mg/dL (7-18); BUN/Creat Ratio 27.1 RATIO (10-20); Calcium,Total 9.9 mg/dL (8.5-10.1); Chloride 100 mmol/L (98-107); EST Glomerular Filtration Rate 51 mL/min (>60); Est Glom Filt Rate - Afr Amer 62 mL/min (>60); Glucose 105 mg/dL (74-106); Phosphorus 3.2 mg/dL (2.5-4.9); Sodium Level 133 mmol/L (136-145)
== END | disposition home or self-care (01) ==
LOC: LAB 12:37
PROVIDERS: PCP Family Medicine Geriatric Medicine; Referring Provider Internal Medicine Nephrology; Visit Provider Internal Medicine Nephrology
DX: N18.2 Chronic kidney disease, stage 2 (mild) (principal)
CPT/HCPCS: 36415; 80069

== ENCOUNTER 2024-01-27 10:39 | Day surgery (SDC) | payer MEDICARE, BC, SELFPAY ==
[2024-01-06 11:34] LABS: Anion Gap 5 (5-15); BUN 27 mg/dL (7-18); BUN/Creat Ratio 21.4 RATIO (10-20); Calcium,Total 9.2 mg/dL (8.5-10.1); Chloride 104 mmol/L (98-107); Creatinine, Serum 1.26 mg/dL (0.70-1.30); EST Glomerular Filtration Rate 58 mL/min (>60); Est Glom Filt Rate - Afr Amer 70 mL/min (>60); Glucose 97 mg/dL (74-106); Potassium 4.1 mmol/L (3.5-5.1); Sodium Level 140 mmol/L (136-145)
[2024-01-24 10:00] VITALS: BMI 30.2
--- NOTE | 2024-01-27 12:23 | PCM.OP.PRO2 ---
Problems Associated Problem List Diagnoses (1) Atrial flutter by electrocardiogram: Non-invasive Procedural Procedure Information Date of Procedure: 01/27/24 Pre-Procedure Diagnosis: Atrial fibrillation flutter Post-Procedure Diagnosis: Same Procedure Performed:: DC Cardioversion Procedure Time Out: 12:10 Procedure Start Time: 12:14 Procedure Stop Time: 12:20 Description of procedure: The patient was brought to cardiac catheterization lab in the postabsorptive nonsedated state. Informed consent was obtained. Anterior-posterior pads were applied. Appropriate timeout was obtained. The patient was administered 40 mg of intravenous propofol and 200 J of synchronized DC biphasic cardioversion energy were applied with prompt reversal to sinus rhythm. Patient tolerated the procedure well. No apparent complications were noted. Conclusion successful DC cardioversion from atrial flutter to sinus rhythm. Follow-up as per office protocol Complications Complications: No
--- NOTE | 2024-01-27 12:36 | CPS ---
Called to attend cardioversion for patient.
== END 2024-01-27 13:30 | disposition home or self-care (01) ==
PROVIDERS: Nurse Practitioner Gerontology; PCP Family Medicine Geriatric Medicine; Referring Provider Internal Medicine Cardiovascular Disease; Visit Provider Internal Medicine Cardiovascular Disease
DX: I48.92 Unspecified atrial flutter (principal); I48.91 Unspecified atrial fibrillation; Z79.899 Other long term (current) drug therapy; Z79.01 Long term (current) use of anticoagulants; K21.9 Gastro-esophageal reflux disease without esophagitis; E78.5 Hyperlipidemia, unspecified; Z87.891 Personal history of nicotine dependence; R00.1 Bradycardia, unspecified; I10 Essential (primary) hypertension
CPT/HCPCS: 36415; 80048; 92960; 93005

== ENCOUNTER → 2024-03-10 | Outpatient (CLI) | payer MEDICARE, BC, SELFPAY ==
[2024-03-10 12:10] LABS: Anion Gap 6 (5-15); BUN 24 mg/dL (7-18); BUN/Creat Ratio 17.5 RATIO (10-20); Calcium,Total 9.6 mg/dL (8.5-10.1); Chloride 102 mmol/L (98-107); Creatinine, Serum 1.37 mg/dL (0.70-1.30); EST Glomerular Filtration Rate 53 mL/min (>60); Est Glom Filt Rate - Afr Amer 64 mL/min (>60); Glucose 100 mg/dL (74-106); Potassium 4.4 mmol/L (3.5-5.1); Sodium Level 136 mmol/L (136-145)
== END | disposition home or self-care (01) ==
PROVIDERS: PCP Family Medicine Geriatric Medicine; Referring Provider Family Medicine Geriatric Medicine; Visit Provider Family Medicine Geriatric Medicine
DX: N18.2 Chronic kidney disease, stage 2 (mild) (principal)
CPT/HCPCS: 36415; 80048

== ENCOUNTER → 2024-04-21 | Outpatient (CLI) | payer MEDICARE, BC, SELFPAY ==
[2024-04-21 11:06] LABS: Absolute Lymphocyte Count 1.27 X10^3/uL (0.83-4.51); Basophil# 0.03 X10^3/uL; Basophil% 0.4 % (0-1); Eosinophil# 0.05 X10^3/uL; Eosinophils% 0.6 % (0-5); Hematocrit 40.9 % (40-54); Hemoglobin 13.7 g/dL (13.0-16.5); Lymphocyte # 1.27 X10^3/ul (0.83-4.51); Lymphocyte % 15.5 % (19-41); Mean Corp Hgb Conc 33.5 g/dL (32-36); Mean Corpuscular Hgb 30.7 pg (27.0-32.0); Mean Corpuscular Volume 91.7 fL (80-94); Mean Platelet Vol. 8.2 fl (6.2-12.0); Monocyte# 0.84 X10^3/uL; Monocyte% 10.3 % (0-10); NRBC Flagged by Analyzer 0 % (0-5); Neutrophil # 5.97 X10^3/uL (2.7-7.7); Neutrophil % 72.8 % (47-70); Platelet Count 256 K/mm3 (150-450); RBC Distribution Width CV 12.8 % (11.6-14.6); RBC Distribution Width SD 42.8 fl (35.1-43.9); Red Blood Count 4.46 M/mm3 (4.6-6.2); White Blood Count 8.2 K/mm3 (4.4-11.0)
--- NOTE | 2024-04-21 11:55 | RAD_ITS ---
EXAM: XR Right Shoulder Complete, 2 or More Views CLINICAL INDICATION: TECHNIQUE: Two or more views of the right shoulder. COMPARISON: No relevant prior studies available. FINDINGS: BONES/JOINTS: Mild degenerative change of the acromioclavicular and glenohumeral joints. No acute fracture. No dislocation. SOFT TISSUES: Unremarkable. RAD/Shoulder min 2 Views IMPRESSION: Degenerative changes as above. Reading Location[facility]
[2024-04-21 11:58] LABS: Vitamin D,25 Hydroxy 26.5 ng/mL (30-100)
[2024-04-21 12:42] LABS: ALB/GLOB Ratio 1.7 RATIO (0.9-2.4); Alanine Aminotransfer ALT/SGPT 30 U/L (<=46); Albumin, Serum 4.4 g/dL (3.4-4.8); Alkaline Phosphatase 74 U/L (40-129); Anion Gap 11 (5-15); BUN 24 mg/dL (4-19); BUN/Creat Ratio 21.9 RATIO (10-20); Calcium,Total 9.8 mg/dL (7.6-11.0); Carbon Dioxide 25.1 mmol/L (21.0-32.0); Chloride 99 mmol/L (98-108); Creatinine, Serum 1.09 mg/dL (0.70-1.20); EST Glomerular Filtration Rate 67 (>60); Globulin 2.7 g/dL (2.2-4.2); Glucose 120 mg/dL (70-99); Potassium 4.6 mmol/L (3.3-5.1); Sodium Level 135 mmol/L (133-145); Total Bilirubin 0.48 mg/dL (0.00-1.30)
[2024-04-21 13:09] LABS: AST(SGOT) 24 U/L (<=37)
== END | disposition home or self-care (01) ==
LOC: POLAB3 10:55
PROVIDERS: PCP Family Medicine Geriatric Medicine; Visit Provider Family Medicine Geriatric Medicine
DX: M25.511 Pain in right shoulder (principal); I10 Essential (primary) hypertension; E55.9 Vitamin D deficiency, unspecified
CPT/HCPCS: 36415; 73030; 80053; 82306; 84443; 85025

== ENCOUNTER → 2024-05-07 | Outpatient (CLI) | payer MEDICARE, BC, SELFPAY ==
[2024-05-07 14:16] LABS: Anion Gap 12 (5-15); BUN 24 mg/dL (4-19); BUN/Creat Ratio 19.5 RATIO (10-20); Calcium,Total 9.8 mg/dL (7.6-11.0); Carbon Dioxide 25.6 mmol/L (21.0-32.0); Chloride 95 mmol/L (98-108); Creatinine, Serum 1.23 mg/dL (0.70-1.20); EST Glomerular Filtration Rate 58 (>60); Glucose 100 mg/dL (70-99); Potassium 4.2 mmol/L (3.3-5.1); Sodium Level 133 mmol/L (133-145)
== END | disposition home or self-care (01) ==
LOC: LAB 12:23
PROVIDERS: PCP Family Medicine Geriatric Medicine; Referring Provider Nurse Practitioner Family; Visit Provider Nurse Practitioner Family
DX: Z51.81 Encounter for therapeutic drug level monitoring (principal); Z79.899 Other long term (current) drug therapy
CPT/HCPCS: 36415; 80048

== ENCOUNTER → 2024-05-21 | Outpatient (CLI) | payer MEDICARE, BC, SELFPAY ==
[2024-05-21 14:10] LABS: Anion Gap 12 (5-15); BUN 29 mg/dL (4-19); BUN/Creat Ratio 23.1 RATIO (10-20); Calcium,Total 9.8 mg/dL (7.6-11.0); Carbon Dioxide 24.7 mmol/L (21.0-32.0); Chloride 97 mmol/L (98-108); Creatinine, Serum 1.25 mg/dL (0.70-1.20); EST Glomerular Filtration Rate 57 (>60); Glucose 95 mg/dL (70-99); Potassium 4.6 mmol/L (3.3-5.1); Sodium Level 133 mmol/L (133-145)
== END | disposition home or self-care (01) ==
LOC: LAB 13:09
PROVIDERS: PCP Family Medicine Geriatric Medicine; Referring Provider Nurse Practitioner Family; Visit Provider Nurse Practitioner Family
DX: Z51.81 Encounter for therapeutic drug level monitoring (principal); Z79.899 Other long term (current) drug therapy; R00.0 Tachycardia, unspecified; I10 Essential (primary) hypertension; E78.5 Hyperlipidemia, unspecified
CPT/HCPCS: 36415; 80048

== ENCOUNTER → 2024-07-07 | Outpatient (CLI) | payer MEDICARE, BC, SELFPAY ==
[2024-07-07 13:48] LABS: Erythrocyte Sedimentation Rate 5 mm/hr (0-20)
[2024-07-07 13:49] LABS: Absolute Lymphocyte Count 1.06 X10^3/uL (0.83-4.51); Absolute Neutrophil Count 6.1 X10^3/uL (2.0-7.7); Basophil# 0.04 X10^3/uL; Basophil% 0.5 % (0-1); Eosinophil# 0.05 X10^3/uL; Eosinophils% 0.6 % (0-5); Hematocrit 40.9 % (40-54); Hemoglobin 13.9 g/dL (13.0-16.5); Lymphocyte # 1.06 X10^3/ul (0.83-4.51); Lymphocyte % 13.1 % (19-41); Mean Corpuscular Hgb 31.4 pg (27.0-32.0); Mean Corpuscular Volume 92.5 fL (80-94); Mean Platelet Vol. 8.3 fl (6.2-12.0); Monocyte# 0.84 X10^3/uL; Monocyte% 10.4 % (0-10); NRBC Flagged by Analyzer 0 % (0-5); Neutrophil # 6.07 X10^3/uL (2.7-7.7); Platelet Count 290 K/mm3 (150-450); RBC Distribution Width CV 12.6 % (11.6-14.6); RBC Distribution Width SD 42.8 fl (35.1-43.9); Red Blood Count 4.42 M/mm3 (4.6-6.2); White Blood Count 8.1 K/mm3 (4.4-11.0)
[2024-07-07 14:01] LABS: CRP < 3.00 mg/L (0.0-3.0)
== END | disposition home or self-care (01) ==
LOC: LAB 12:52
PROVIDERS: PCP Family Medicine Geriatric Medicine; Referring Provider Specialist; Visit Provider Specialist
DX: M25.561 Pain in right knee (principal); I10 Essential (primary) hypertension
CPT/HCPCS: 36415; 85025; 85652; 86140

== ENCOUNTER 2024-08-11 11:56 | Outpatient (CLI) | payer MEDICARE, BC, SELFPAY | END 2024-08-11 23:59 | disposition home or self-care (01) | LOC: PSN 11:57 | PROVIDERS: PCP Family Medicine Geriatric Medicine; Referring Provider Physician Assistant Medical; Visit Provider Physician Assistant Medical | DX: R00.1 Bradycardia, unspecified (principal) | CPT/HCPCS: 93225; 93226 ==

== ENCOUNTER → 2024-08-19 | Outpatient (CLI) | payer MEDICARE, BC, SELFPAY ==
--- NOTE | 2024-08-19 12:50 | CT_ITS ---
PROCEDURE: EXTREMITY LOWER WITHOUT CONTRA 08/19/2024 REASON FOR EXAM: VARUS DEFORMITY, NOT ELSEWHERE CLASSIFIED, RIGHT KNEE TECHNIQUE: EXTREMITY LOWER WITHOUT CONTRA Coronal and Sagittal reconstruction series were provided. CONTRAST: None One or more dose reduction techniques were used (e.g., Automated exposure control, adjustment of the mA and/or kV according to patient size, use of iterative reconstruction technique). RADIATION DOSE SUMMARY: DLP: 1212.81 mGycm COMPARISON: None FINDINGS: There is a prosthesis in the medial joint space at the knee which appears intact and aligned. There is joint space narrowing and osteophyte formation at the patellofemoral articulation and lateral compartment. Subcortical cyst formation is noted. A large joint effusion is visible. Vascular calcifications are noted. CT/Extremity Lower without Contra IMPRESSION: There is a prosthesis in the medial joint space at the knee which appears intac t and aligned. There is joint space narrowing and osteophyte formation at the patellofemoral a rticulation and lateral compartment. A large joint effusion is visible. Reading Location: [facility]
--- NOTE | 2024-08-19 12:50 | CT_ITS ---
PROCEDURE: EXTREMITY LOWER WITHOUT CONTRA 08/19/2024 REASON FOR EXAM: VARUS DEFORMITY, NOT ELSEWHERE CLASSIFIED, RIGHT KNEE TECHNIQUE: EXTREMITY LOWER WITHOUT CONTRA Coronal and Sagittal reconstruction series were provided. CONTRAST: None One or more dose reduction techniques were used (e.g., Automated exposure control, adjustment of the mA and/or kV according to patient size, use of iterative reconstruction technique). RADIATION DOSE SUMMARY: DLP: 1212.81 mGycm COMPARISON: None FINDINGS: There is a prosthesis in the medial joint space at the knee which appears intact and aligned. There is joint space narrowing and osteophyte formation at the patellofemoral articulation and lateral compartment. Subcortical cyst formation is noted. A large joint effusion is visible. Vascular calcifications are noted. CT/Extremity Lower without Contra IMPRESSION: There is a prosthesis in the medial joint space at the knee which appears intac t and aligned. There is joint space narrowing and osteophyte formation at the patellofemoral a rticulation and lateral compartment. A large joint effusion is visible. Reading Location: [facility]
== END | disposition home or self-care (01) ==
LOC: CT 12:47
PROVIDERS: PCP Family Medicine Geriatric Medicine; Referring Provider Specialist; Visit Provider Specialist
DX: T84.84XA Pain due to internal orthopedic prosthetic devices, implants and grafts, initial encounter (principal); M17.11 Unilateral primary osteoarthritis, right knee; M21.161 Varus deformity, not elsewhere classified, right knee
CPT/HCPCS: 73700

== ENCOUNTER → 2024-08-26 | Outpatient (CLI) | payer MEDICARE, BC, SELFPAY ==
[2024-08-26 15:43] LABS: Anion Gap 12 (5-15); BUN 28 mg/dL (4-19); BUN/Creat Ratio 24.4 RATIO (10-20); Calcium,Total 9.6 mg/dL (7.6-11.0); Carbon Dioxide 24.6 mmol/L (21.0-32.0); Chloride 92 mmol/L (98-108); Glucose 96 mg/dL (70-99); Potassium 4.5 mmol/L (3.3-5.1)
[2024-08-26 17:36] LABS: Osmolality, Serum 284 mOsm/KG (280-301); Osmolality, Urine 391 mOsm/KG
== END | disposition home or self-care (01) ==
LOC: POLAB3 14:02
PROVIDERS: PCP Family Medicine Geriatric Medicine; Visit Provider Family Medicine Geriatric Medicine
DX: E87.0 Hyperosmolality and hypernatremia (principal)
CPT/HCPCS: 36415; 80048; 83930; 83935; 84300

== ENCOUNTER → 2024-09-03 | Outpatient (CLI) | payer MEDICARE, BC, SELFPAY | END | disposition home or self-care (01) | LOC: CVS 06:43 | PROVIDERS: PCP Family Medicine Geriatric Medicine; Referring Provider Physician Assistant Medical; Visit Provider Physician Assistant Medical | DX: Z01.810 Encounter for preprocedural cardiovascular examination (principal); I25.10 Atherosclerotic heart disease of native coronary artery without angina pectoris | CPT/HCPCS: 78452; 93017; A9500; A4216; J2785 ==

== ENCOUNTER → 2024-09-03 | Outpatient (CLI) | payer MEDICARE, BC, SELFPAY ==
[2024-09-03 09:53] LABS: Anion Gap 12 (5-15); BUN 31 mg/dL (4-19); BUN/Creat Ratio 25.2 RATIO (10-20); Calcium,Total 10.4 mg/dL (7.6-11.0); Carbon Dioxide 25.2 mmol/L (21.0-32.0); Chloride 99 mmol/L (98-108); Glucose 107 mg/dL (70-99); Potassium 4.6 mmol/L (3.3-5.1)
--- NOTE | 2024-09-03 10:27 | STRESSREP_ITS ---
Stress Test Report Date: 09/03/2024 Procedure: Pharmacologic stress nuclear imaging study Indications: CAD, preop evaluation Consent: Per the patient Procedure: The patient underwent pharmacologic (Regadenoson 0.4mg ) evaluation with a peak heart rate of 73 beats per minute (53%predicted maximal heart rate) and a peak blood pressure of 128/82 mmHg. The baseline ECG demonstrated sinus rhythm. The peak pharmacologic ECG did not show any ischemic changes. There were no cardiac dysrhythmias pretest, during pharmacologic infusion, or recovery. There was no complaint of chest discomfort during pharmacologic infusion or recovery. The patient was injected with 13.2 millicuries of technetium 99m Cardiolite and subsequently rest SPECT Cardiolite nuclear imaging was obtained in the horizontal long, vertical long, and short axis views. The patient underwent pharmacologic (Regadenoson) evaluation. The patient was injected with 44.0 millicuries of technetium 99m Cardiolite and subsequently stress SPECT Cardiolite nuclear imaging was obtained in the horizontal long, vertical long, and short axis views. A gated Cardiolite study at peak stress was obtained. The examination was stopped secondary to completion of protocol. Rest and stress SPECT Cardiolite nuclear imaging status post realignment, normalization, and attenuation correction demonstrate no fixed or reversible perfusion defects. There is end systolic thickening and brightening. The gated Cardiolite study demonstrates myocardial thickening and inward wall motion. The reported LVEF is 72%. Impression: 1. Pharmacologic (Regadenoson) evaluation 2. Peak pharmacologic ECG with no ischemic changes. 3. There were no cardiac dysrhythmias pretest, during pharmacologic infusion, or recovery. 5. Rest and stress SPECT Cardiolite nuclear imaging demonstrate relative uniform tracer uptake and myocardial perfusion appearing within normal limits. 6. The gated Cardiolite study reports an LVEF of 72%. This note was generated with [employer] software. It may contain incorrect words, spelling, and punctuation that were not noted in checking the note before signing.
== END | disposition home or self-care (01) ==
LOC: LAB 09:02
PROVIDERS: PCP Family Medicine Geriatric Medicine; Referring Provider Nurse Practitioner Gerontology; Visit Provider Nurse Practitioner Gerontology
DX: E87.0 Hyperosmolality and hypernatremia (principal); I10 Essential (primary) hypertension
CPT/HCPCS: 36415; 80048

== ENCOUNTER 2024-09-14 07:16 | Inpatient (IN) | payer MEDICARE, BC, SELFPAY ==
--- NOTE | 2024-08-24 11:53 | EKG12_ITS ---
Test Reason : PREOP Blood Pressure : */* mmHG Vent. Rate : 60 BPM Atrial Rate : 60 BPM P-R Int : 276 ms QRS Dur : 94 ms QT Int : 462 ms P-R-T Axes : 79 37 26 degrees QTcB Int : 462 ms Sinus rhythm with 1st degree A-V block with Fusion complexes Septal infarct (cited on or before 11-Nov-2023) Inferior infarct (cited on or before 11-Nov-2023) Abnormal ECG Confirmed by PARK SERRANO MD ([id number]), news editor LISANDRO SANCHEZ ([id number]) on 08/24/2024 1:19:06 PM Referred By: James Lantigua Confirmed By: PARK SERRANO MD
[2024-08-24 13:21] LABS: Hematocrit 40.5 % (40-54); Hemoglobin 13.7 g/dL (13.0-16.5); Immature Granulocytes Count 0.040 X10^3/uL (0.0-0.0); Mean Corp Hgb Conc 33.8 g/dL (32-36); Mean Corpuscular Volume 91.4 fL (80-94); Mean Platelet Vol. 8.5 fl (6.2-12.0); NRBC Flagged by Analyzer 0 % (0-5); Platelet Count 299 K/mm3 (150-450); RBC Distribution Width CV 12.3 % (11.6-14.6); RBC Distribution Width SD 41.0 fl (35.1-43.9); Red Blood Count 4.43 M/mm3 (4.6-6.2); White Blood Count 8.4 K/mm3 (4.4-11.0)
[2024-08-24 13:58] LABS: Albumin, Serum 4.4 g/dL (3.4-4.8); Anion Gap 10 (5-15); BUN 31 mg/dL (4-19); BUN/Creat Ratio 25.5 RATIO (10-20); Calcium,Total 9.6 mg/dL (7.6-11.0); Carbon Dioxide 28.0 mmol/L (21.0-32.0); Chloride 90 mmol/L (98-108); Glucose 94 mg/dL (70-99); Potassium 4.6 mmol/L (3.3-5.1)
[2024-08-24 16:08] LABS: Magnesium 1.9 mg/dL (1.5-2.2)
--- NOTE | 2024-09-03 14:05 | PAT.ANE_ITS ---
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 When Was Last Pacemaker Check QUESTION #4 FULL TEXT: You/Your Family Experience fever (hyperthermia) with Anesthesia Last Oral Intake Last Oral intake: Last Oral Intake NPO since Meds taken in AM with sips of water? 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 manager Female No 08/17/24 10:51 HX of Motion Sickness No 08/17/24 10:51 HX of N/V After Surgery No 08/17/24 10:51 Non-Smoker Yes 08/17/24 10:51 Duration of Surgery greater Yes 08/17/24 10:51 than 60 minutes Number of Risk Factors 2 08/17/24 10:51 PONV Score Moderate Risk 08/17/24 10:51 Height & Weight Height & Weight: Anesthesia: Height & Weight Height 5 ft 10 in 07/30/24 13:27 Respiratory Assessment Respiratory Assessment - grocery store manager: Respiratory Tract Infection Hx - grocery store manager Hx Respiratory Tract Infection No 08/17/24 10:51 STOP Sleep Apnea STOP Sleep Apnea - grocery store manager: STOP Sleep Apnea - grocery store manager Hx Hypertension Yes: on med 08/17/24 10:51 Hx Sleep Apnea Yes 08/17/24 10:51 CPAP Yes 08/17/24 10:51 BIPAP No 08/17/24 10:51 Do you snore loudly (louder than talking or can be heard Do you often feel tired/ fatigued/ sleepy during daytime? Has anyone observed you stop breathing during sleep? STOP Results Positive 08/17/24 10:51 QUESTION #5 FULL TEXT : Do you snore loudly (louder than talking or can be heard through closed doors)? 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 Specify any problems Hx of Preganancy in last 3 N/A 08/17/24 10:51 Months Nurse Filling Out Transfusion JZOLLINGE 08/17/24 10:51 & Questions: Date: 08/17/24 08/17/24 10:51 Time: 10:57 08/17/24 10:51 Patient unable to answer at this time (ie. confused, unrespo /Reproduction History /Reproductive History - grocery store manager: /Reproductive Hx- grocery store manager Hx Now No 08/17/24 10:51 Gestational Age (in weeks): EDC: Hx Hx Para Hx Section SAB No 08/17/24 10:51 PFSH Medical History (Updated 08/17/24 @ 10:51 by Jess Zimmer) Wears glasses History of macular degeneration History of atrial fibrillation Easy bruising History of diverticulitis Non-smoker Sleep apnea Shortness of breath on exertion History of edema History of stress test Cardiology follow-up encounter History of basal cell carcinoma of eyelid Carotid artery disease Epistaxis Hypernatremia Low testosterone in male Essential (primary) hypertension Hyperlipidemia GERD (gastroesophageal reflux disease) Arthritis Erectile dysfunction BPH (benign prostatic hyperplasia) History of Lyme disease Home Medications ?Medication ?Instructions ?Recorded ?Last Taken ?Type vit C 250 mg-vit E 90 mg-zinc 40 1 tab PO BID 03/22/22 Unknown History mg-copper 1 [id number] capsule (PreserVision AREDS-2) finasteride 5 mg tablet 5 mg PO QHS 03/29/22 4 History pravastatin 40 mg tablet 40 mg PO QHS 03/29/22 Unknow n History amlodipine 10 mg tablet 10 mg PO DAILY this has been 03/19/23 11/08/23 Rx resumed #90 tabs lansoprazole 30 mg capsule,delayed 30 mg PO DAILY PRN acid reflux 08/14/23 Unknown History release losartan 50 mg tablet 50 mg PO BID #180 tabs 09/2501/27/24 Rx spironolactone 25 mg tablet 25 mg PO QAM #90 tabs 11/18 03/13 Unknown Rx amiodarone 200 mg tablet 200 mg PO QDAY #37 tabs 12/1901/27/24 Rx apixaban 5 mg tablet (Eliquis) 5 mg PO BID #60 tabs Unknown Rx carvedilol 3.125 mg tablet 3.125 mg PO BID 08/17/24 Un known History cholecalciferol (vitamin D3) 50 50 mcg PO DAILY Unknown History mcg (2,000 unit) capsule hydralazine 25 mg tablet 25 mg PO BID #60 tabs Unknown Rx Allergy/AdvReac Type Severity Reaction Status Date / Time simvastatin (From Zocor) Allergy Mild itch Verified 08/17/24 10:32 Family History Father , 66 yrs Myocardial infarction Mother Hypertension Surgical History (Updated 08/17/24 @ 10:51 by Jess Zimmer) Hx of colonoscopy History of repair of rotator cuff History of total left knee replacement History of total right knee replacement History of prostatectomy (~2012) History of cataract extraction (~2014) Social History Smoking Status: Former smoker how long ago did patient quit smokin alcohol intake: current alcohol intake frequency: a few times a week substance use type: does not use caffeine: Yes (None in the last 2 weeks) Type: coffee Audit: Pertinent Findings Pertinent Findings EKG Perinent findings: 24 August 2024. Sinus rhythm with first-degree AV block with fusion complexes Stress test pertinent findings: Stress test 09/03/2024 impression peak pharmacologic EKG with no ischemic changes. There are no cardiac dysrhythmias pretest, during pharmacologic infusion, or recovery. LVEF 72% Echo (EF%) pertinent findings: Echo 2018. EF 60%. Echo 03/2022 EF 55% with stage I diastolic dysfunction. Cardioversion 11/11/2019 for was unsuccessful Consult pertinent findings: Cardiology visit 07/30/2024. If stress test is negative okay for patient to pursue surgery. It is okay for him to hold his Eliquis 2 days before and resume after. Additional pertinent findings: Holter monitor 08/11/2024. Holter monitor 24-hour in normal sinus rhythm with a first-degree AV block and rare PVCs/PACs Recommendation Anesthesia Recommendation Anesthesia recommendation: OPTIMIZED for anesthesia
--- NOTE | 2024-09-04 08:40 | HP.PCM_ITS ---
History and Physical History and Physical? Patient Name: Andrea Morgan : 1940From:? ELADIO DEE PA-C? DATE OF PRE-OPERATIVE EXAM: 09/02/2024 DATE OF SURGERY:? 09/14/2024 SCHEDULED PROCEDURE:? Robotic-assisted right revision unicompartmental knee replacement to a total knee arthroplasty HISTORY OF PRESENT ILLNESS: Preoperative history and physical exam was performed on September 02, 2024.? This is a 83-year-old male who has had ongoing pain for the past approximately 8 months.? He has had a previous bilateral partial knee replacement by Dr. Clay Carpenter on May 15, 2007.? Patient states his pain is been intermittent and sharp.? He feels the right knee has never been as good since the partial knee replacement as the left.? He does feel the pain has began getting worse over the past year.? He did have a fall in mid-January where he hit his knee.? His pain is increased with activities of daily living including bathing/showering, gettin g dressed, housework, shopping and leisure activities.? He has tried heat and rest without relief.? He has tried home exercises without relief.? Patient has tried oral medications including Tylenol without relief.? He has been using a cane and walker for the past year.? He has attempted bracing over the past several months.? On x-rays it has shown progression and narrowing of the lateral joint space and patellofemoral compartment.? There is also evidence of posterior metal erosion on the tibial baseplate consistent with polyethylene failure.? After failing conservative measures and discussing all treatment options was Dr. James Lantigua, the patient does wish to proceed with a robotic-assisted right revision unicompartmental knee replacement to a total knee arthroplasty.? He has had preoperative inflammatory lab work in which the ESR was 5 and CRP less than 3.0 not consistent with infection.? Patient has obtained clearance from the primary care provider Dr. Blancas and cardiology with Marita Munroe PA-C.? Per patient they have been adjusting his blood pressure medications.? Preoperative lab work also did reveal hyponatremia at 128.? He has been under the care of his primary care provider and has repeat lab work tomorrow.? 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 Cardiology recommended stopping the Eliquis 3 days prior to surgery.? He denies past history of DVT or pulmonary embolism.? He is followed for his BPH by local urologist. REVIEW OF SYSTEMS: Review Of Systems: Constitutional: Reports vision and hearing problems.Denies anorexia, anxiety, change in appetite, fever and weight change. Cardiovasular: Reports irregular heartbeat, but denies chest pain, heart murmur and peripheral vascular disease. Respiratory: Reports sleep apnea, but denies asthma, cough, pneumonia, shortness of breath, tuberculosis and wheezing. Gastrointestinal: Denies constipation, diarrhea, heartburn, nausea, bloody stools and vomiting, and difficulty swallowing. Genitourinary: Denies incontinence. Musculoskeletal: Reports trouble walking, but denies leg swelling and weakness and limp. Skin: Denies Raynaud's, history of shingles and tattoo. Neurological: Reports ambulatory dysfunction and dizziness but denies numbness/tingling and tremor. Psychiatric: Denies anxiety, depression, insomnia, mental illness and stress. Hematologic/Lymphatic: Reports bleeding/bruising tendency, but denies anemia and past transfusion. Reviewed and updated. PAST MEDICAL HISTORY: Advance Care Plan: Past Medical History: Medical Problems: Arthritis, High Blood Pressure, Acid Reflux, Hypercholesterolemia, Sleep Apnea Covid- 19 - (2022) Covid-19 Vaccine Partially Blind - LT EYE BPH, Afib, Kidney Disease/Renal Failure Accidents: Fracture - LEG? AGE 18 Surgical Hx: Rotator Cuff - (2003) RT SHOULDER;? [facility] Prostate Surgery Knee Replacement - (05/15/2007) BILATERAL TOTAL KNEE UNICOMPARTMENTAL, DR. CARPENTER, [facility] Cataracts - (2013) [facility] Cardioversion - x2 Anesthesia Complications: None Assistive Devices: Glasses, Walker, Cpap, Cane, Brace Reviewed and updated. SOCIAL HISTORY: Social History: Marital: .Occupation: Retired.Work Status: Retired.Hand Dominance: Right- handed. Personal Habits:? Cigarette Use: Former.Smokeless Tobacco: Never Used Smokeless Tobacco.E-Cigarette Use: Never used.Alcohol: Occasionally.Drug Use: Denies Use.Enjoy Exercising: Never Exercises. Reviewed, no changes. VITALS: Ht: 69.5 Wt: 203lb Wt k.081 BMI: 29.5 BP: 96/58 Pulse: 66 Resp: 16 T: 98.4 T: 36.9C Pain Level: 8/10 O2SatR: 96 ALLERGIES: Lopressor Procardia Zocor Hydrocodone? MEDICATIONS: Ocuvite Preservision? 2 po qday, Pravastatin Sodium 20 mg 1 po qday, Eliquis 5 mg 2x daily, Coreg 3.125 mg 2x daily, Spironolactone 25 mg 1x daily, Losartan Potassium 50 mg 2x daily, Amlodipine Besylate 10 mg 1x daily morning, Amiodarone HCL 200 mg 1x daily, Finasteride 5 mg 1x daily., Hydralazine HCL 25 mg take one tablet by mouth twice daily PRE-OP EXAM:? General appearance:NORMAL? ? ? Other: Eyes: Conjunctivae and lids: NORMAL? Pupils: ERR Ears, Nose, Mouth, and Throat: NORMAL? Other: Inspection of lips, teeth and gums: NORMAL? ?Other: Neck: Examination of neck: no masses noted. Respiratory: Assessment of respiratory effort: NORMAL? ?Other: ?Auscultation of lungs: clear to auscultation no wheezes, rhonchi or rales. Cardiovascular:? Auscultation of heart: regular rate and rhythm, no murmurs, gallops or rubs. PHYSICAL EXAMINATION: On exam patient ambulates with antalgic gait with use of cane.? Right knee is without erythema or signs of infection.? Previous incision is well healed. Range of motion: Lacks 5 full extension to 115 flexion Stable to varus/valgus stress test, stable to anterior/posterior drawer exam. IMAGING STUDIES: Previous x-rays of the right knee reveal stable well aligned partial knee replacement.? Overall varus alignment of the knee.? Femoral-tibial implants remain stably fixed with cement.? There is lateral joint space progressive narrowing and osteophyte formation as well as progressive patellofemoral joint space narrowing and osteophyte formation.? On the tunnel view there is evidence of posterior metal erosion on the tibial baseplate consistent with polyethylene failure. IMPRESSION: 1.? 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 Hypertension 3.? Atrial flutter: Currently on Eliquis 4.? Gastroesophageal reflux disease 5.? Hypercholesterolemia 6.? Sleep apnea with use of CPAP 7.? Partially blind left eye 8.? Benign prostatic hyperplasia 9.? Overweight with BMI 29.5 10.? Hyponatremia 11.? Chronic kidney disease PLAN: Dr. James Lantigua did discuss and review with the patient all treatment options including surgical versus nonsurgical options.? I will continue plan established by Dr. James Lantigua.? Patient does wish to proceed with the above-stated procedure.? Potential risks, benefits, and complications of the procedure were discussed in detail including but not limited to , infection, nerve and blood vessel damage, persistent pain, numbness, tingling, paresthesias, blood clot, pulmonary embolism, and requirement for possible further surgery.? The patient expressed full understanding and has no further questions for the doctor.? Patient does agree to proceed with the above-stated procedure and has signed the surgery consent form. POST-OP MEDICATION PLAN: Pain Medications: Postoperative pain regimen will be initiated by Dr. James Lantigua in the hospital.? Patient had difficulty with breathing issues with hydrocodone in the past.? We will use extra strength Tylenol and oxycodone for pain control.? If any narcotics need to be adjusted in the hospital we will do so.? This was discussed with the patient and his daughter.? Patient will continue our nutrition protocol.? We will avoid nonsteroidal anti-inflammatories due to his anticoagulation and chronic kidney disease.? Patient is currently under the care of primary care provider for the hyponatremia and which repeat labwork is going to be obtained on September 03, 2024.? We are reaching out to the primary care provider for official clearance again.? Patient is concerned about discharge home and I did inform him that we will have care management team on board for safe and appropriate discharge planning.? Due to the revision patient will also be on doxycycline in which she was instructed that he is more sensitive to the sunlight and should take appropriate precautions.? Patient was also instructed to use probiotics while on the antibiotic. DVT Prophylaxis Plan: Patient will resume his Eliquis 5 mg twice daily postoperatively day 1.? He has been instructed to stop this 3 days prior to surgery per cardiology.? Eliquis will cover him for DVT prophylaxis.? He denies past history of DVT or pulmonary embolism.? He will also use CHARLES hose for 2 weeks postoperatively. This dictation was created using voice recognition software. Phonetic and/or grammatical errors may exist. ___? I have re-examined the patient.? There are no clinical changes since date of exam. ___? See progress notes for changes. ___? Dictated on admission Date: ? ? ?Time: Signature: 09/04/24 (SatSep 04) 08:39 AM? Eladio Dee Added Addendum: Patient had repeat lab work on September 03, 2024 in which his sodium was 136.? This has improved back to his baseline.? He has had previous clearance from Dr. Blancas.? We did reach out to anesthesia at the hospital in which they are okay proceeding with surgery at this time.
[2024-09-14] VITALS (18 sets, daily range): BP systolic 116–162; BP diastolic 56–94; PULSE 69–87; RESP 16–18; TEMP 36.1–36.9; O2SAT 92–99; BMI 29.0
--- NOTE | 2024-09-14 08:43 | PCM.PRE.AN2 ---
ASA Classification* ASA Classification ASA Classification: 3 Assessment & Plan Anesthesia* Anesthesia Assessment Anesthesia Assessment: Discussed sedation and/or anesthesia options, risks, benefits, and alternatives with patient/parents/legal guardian/POA. Questions invited. The patient/parents/legal guardian/POA seems to understand and agrees to proceed with anesthesia plan. Reviewed the physical assessment, medical history, allergy history and patient home medications list prior to surgery/procedure/anesthetic and documented any changes. Performed airway and anesthesia risk assessments. Anesthesia Type Anesthesia Type: Spinal and Block Anesthesia Focused Assessment* Airway Assessment Mouth opens: >3 cm Mallampati Score: II Labs Anesthesia Preop lab: CBC WBC 8.4 K/mm3 (4.4-11.0) 08/24/24 12:13 08/24/24 RBC 4.43 M/mm3 (4.6-6.2) L 08/24/24 12:13 08/24/24 Hgb 13.7 g/dL (13.0-16.5) 08/24/24 12:13 08/24/24 Hct 40.5 % (40-54) 08/24/24 12:13 08/24/24 Plt Count 299 K/mm3 (150-450) 08/24/24 12:13 08/24/24 CHEMISTRY Potassium 4.6 mmol/L (3.3-5.1) 09/03/24 09:06 09/03/24 Sodium 136 mmol/L (133-145) 09/03/24 09:06 09/03/24 Magnesium 1.9 mg/dL (1.5-2.2) 08/24/24 12:13 08/24/24 Phosphorus 3.2 mg/dL (2.5-4.9) 01/20/24 12:42 01/20/24 BUN 31 mg/dL (4-19) H 09/03/24 09:06 09/03/24 Creatinine 1.24 mg/dL (0.70-1.20) H 09/03/24 09:06 09/03/24 Glucose 107 mg/dL (70-99) H 09/03/24 09:06 09/03/24 TSH 4.280 uIU/mL (0.300-4.200) H 04/21/24 10:55 04/21/24 COAG Pre-Assessment Diagnosis/Proposed Procedure Planned Operative Procedure(s): robotic assisted revision right unicompartmental right knee replacement to total knee arthroplsty Anesthesia History Anesthesia History - retread mold operator: Anesthesia History - retread mold operator Hx Hospitalization No 08/17/24 10:51 Any Problems With Anesthesia No 08/17/24 10:51 Cholinesterase deficiency No 08/17/24 10:51 You/Your Family Experience No 08/17/24 10:51 fever (hyperthermia) with Relationship Recent Exposure to Contagious Disease Does patient have nerve No 08/17/24 10:51 stimulator Patient instructed to have device shut off --Does patient have Pacemaker or ICD? When Was Last Pacemaker Check QUESTION #4 FULL TEXT: You/Your Family Experience fever (hyperthermia) with Anesthesia Last Oral Intake Last Oral intake: Last Oral Intake NPO since Meds taken in AM with sips of water? Meds patient instructed to take am of surgery PONV PONV - retread mold operator: PONV - retread mold operator Female No 08/17/24 10:51 HX of Motion Sickness No 08/17/24 10:51 HX of N/V After Surgery No 08/17/24 10:51 Non-Smoker Yes 08/17/24 10:51 Duration of Surgery greater Yes 08/17/24 10:51 than 60 minutes Number of Risk Factors 2 08/17/24 10:51 PONV Score Moderate Risk 08/17/24 10:51 Height & Weight Height & Weight: Anesthesia: Height & Weight Height 5 ft 10 in 07/30/24 13:27 Respiratory Assessment Respiratory Assessment - retread mold operator: Respiratory Tract Infection Hx - retread mold operator Hx Respiratory Tract Infection No 08/17/24 10:51 STOP Sleep Apnea STOP Sleep Apnea - retread mold operator: STOP Sleep Apnea - retread mold operator Hx Hypertension Yes: on med 08/17/24 10:51 Hx Sleep Apnea Yes 08/17/24 10:51 CPAP Yes 08/17/24 10:51 BIPAP No 08/17/24 10:51 Do you snore loudly (louder than talking or can be heard Do you often feel tired/ fatigued/ sleepy during daytime? Has anyone observed you stop breathing during sleep? STOP Results Positive 08/17/24 10:51 QUESTION #5 FULL TEXT : Do you snore loudly (louder than talking or can be heard through closed doors)? Tobacco Use History Tobacco Use History - retread mold operator: Tobacco Use History - retread mold operator Tobacco Use Smoking Status Former smoker 08/17/24 10:51 Hx Tobacco Use No 08/17/24 10:51 Years Smoking Packs Smoked per Day Smoking Cessation Date was No - quit smoking greater 08/17/24 10:51 within the last 15 years than 15 years ago Hx Smoking Cessation Date 09/07/95 08/17/24 10:51 Hx Smoking Cessation No 08/17/24 10:51 Counseling Hematologic Medial History Hematologic Hx - retread mold operator: Hematologic Medical Hx - frame operator Hx of Blood Transfusion No 08/17/24 10:51 Hx of Transfusion in last 3 No 08/17/24 10:51 Months Date of Last Transfusion (if within last 3 months) Ever experience any problems No 08/17/24 10:51 with transfusion(s)? Specify any problems Hx of Preganancy in last 3 N/A 08/17/24 10:51 Months Nurse Filling Out Transfusion JZOLLABBY 08/17/24 10:51 & Questions: Date: 08/17/24 08/17/24 10:51 Time: 10:57 08/17/24 10:51 Patient unable to answer at this time (ie. confused, unrespo /Reproduction History /Reproductive History - retread mold operator: /Reproductive Hx- retread mold operator Hx Now No 08/17/24 10:51 Gestational Age (in weeks): EDC: Hx Hx Para Hx Section SAB No 08/17/24 10:51 Active Medications Active Medications: Current Medications Generic Name Dose Route Start Last Admin Trade Name Uriel PRN Reason Stop Dose Admin Acetaminophen 1,000 mg 09/14/24 12:00 Acetaminophen 500 Mg Tablet PO 09/14/24 12:01 PREOP ONE Acetaminophen 1,000 mg 09/14/24 07:30 Acetaminophen 500 Mg Tablet PO Q8H ROSEANNE Apixaban 5 mg 09/15/24 07:00 Apixaban 5 Mg Tablet PO BID ROSEANNE Tranexamic Acid 2,000 mg/ 0 mg 09/14/24 12:00 Sodium Chloride 100 ml OPERA.SITE 09/14/24 12:01 X1 ONE Sodium Chloride 77.9 ml/ 0 ml 09/14/24 12:00 Ropivacaine 200 mg/ OPERA.SITE 09/14/24 12:01 Epinephrine HCl 0.6 mg/ INTRAOP ONE Ketorolac Tromethamine 30 mg/ Morphine Sulfate 5 mg Dexamethasone Sodium Phosphate 10 mg 09/14/24 12:00 Dexamethasone 10 Mg/Ml Vial IV 09/14/24 12:01 INTRAOP ONE Doxycycline Monohydrate 100 mg 09/14/24 10:00 Doxycycline 100 Mg Capsule PO BID [facility] Enteral Nutritional Formula 237 ml 09/14/24 08:00 Ensure Surgery 237 Ml Liquid PO TIDCM [facility] Famotidine 20 mg 09/14/24 10:00 Famotidine 20 Mg Tablet PO DAILY ROSEANNE Gabapentin 600 mg 09/14/24 12:00 Gabapentin 600 Mg Tablet PO 09/14/24 12:01 PREOP ONE Lactated Ringer's 1,000 mls @ 999 mls/hr 09/14/24 12:00 IV 09/14/24 13:00 .Q1H1M [facility] Cefazolin Sodium 2 gm/ Sodium 110 mls @ 150 mls/hr 09/14/24 12:00 Chloride IV 09/14/24 12:43 INTRAOP ONE Lactated Ringer's 1,000 mls @ 999 mls/hr 09/14/24 12:00 IV 09/14/24 13:00 .Q1H1M [facility] Lactated Ringer's 1,000 mls @ 125 mls/hr 09/14/24 12:00 IV 09/14/24 19:59 .Q8H [facility] Magnesium Sulfate 2 gm/ 104 mls @ 208 mls/hr 09/14/24 12:00 Dextrose IV 09/14/24 12:29 PREOP ONE Cefazolin Sodium 1 gm in 50 mls @ 100 mls/hr 09/14/24 07:20 IV 09/14/24 15:49 Q8H [facility] Insulin Human Lispro 1 - 6 unit 09/14/24 12:00 Insulin Lispro 100 Unit/Ml Insuln.Pen SC Q4H PRN PRN BG>/= 180, SEE PROTOCOL Protocol Morphine Sulfate 2 - 4 mg 09/14/24 07:16 Morphine 2 Mg/Ml Syringe IV Q2H PRN PRN Pain Score 4-10 Ondansetron HCl 4 mg 09/14/24 07:16 Ondansetron 4 Mg/2 Ml Vial IV Q6H PRN PRN NAUSEA/VOMITING Oxycodone HCl 5 - 10 mg 09/14/24 07:16 Oxycodone 5 Mg Tablet PO Q4H PRN PRN Pain Score 4-10 Promethazine HCl 12.5 mg 09/14/24 07:16 Promethazine 25 Mg Tablet PO Q6H PRN PRN NAUSEA/VOMITING Promethazine HCl 12.5 mg 09/14/24 07:16 Promethazine 25 Mg/Ml Syringe IM Q6H PRN PRN NAUSEA/VOMITING Senna/Docusate Sodium 2 tablet 09/14/24 10:00 Senna/Docusate Sodium 1 Tablet PO BID [facility] Medical History Wears glasses History of macular degeneration History of atrial fibrillation Easy bruising History of diverticulitis Non-smoker Sleep apnea Shortness of breath on exertion History of edema History of stress test Cardiology follow-up encounter History of basal cell carcinoma of eyelid Carotid artery disease Epistaxis Hypernatremia Low testosterone in male Essential (primary) hypertension Hyperlipidemia GERD (gastroesophageal reflux disease) Arthritis Erectile dysfunction BPH (benign prostatic hyperplasia) History of Lyme disease Home Medications ?Medication ?Instructions ?Recorded ?Last Taken ?Type vit C 250 mg-vit E 90 mg-zinc 40 1 tab PO BID 03/22/22 Unknown History mg-copper 1 [id number] capsule (PreserVision AREDS-2) finasteride 5 mg tablet 5 mg PO QHS 03/29/22 11/08/23 History pravastatin 40 mg tablet 40 mg PO QHS 03/29/22 Unknown History amlodipine 10 mg tablet 10 mg PO DAILY this has been 03/19/23 11/08/23 Rx resumed #90 tabs lansoprazole 30 mg capsule,delayed 30 mg PO DAILY PRN acid reflux 08/14/23 Unknown History release losartan 50 mg tablet 50 mg PO BID #180 tabs 09/26/23 01/27/24 Rx spironolactone 25 mg tablet 25 mg PO QAM #90 tabs 11/29/23 Unknown Rx amiodarone 200 mg tablet 200 mg PO QDAY #37 tabs 01/01/24 01/27/24 Rx apixaban 5 mg tablet (Eliquis) 5 mg PO BID #60 tabs 07/21/24 Unknown Rx carvedilol 3.125 mg tablet 3.125 mg PO BID 08/17/24 Unknown History cholecalciferol (vitamin D3) 50 50 mcg PO DAILY 08/17/24 Unknown History mcg (2,000 unit) capsule hydralazine 25 mg tablet 25 mg PO BID #60 tabs 08/28/24 Unknown Rx Allergy/AdvReac Type Severity Reaction Status Date / Time simvastatin (From Zocor) Allergy Mild itch Verified 09/14/24 08:50 Family History Father , 66 yrs Myocardial infarction Mother Hypertension Surgical History Hx of colonoscopy History of repair of rotator cuff History of total left knee replacement History of total right knee replacement History of prostatectomy (~2012) History of cataract extraction (~2014) Social History Smoking Status: Former smoker how long ago did patient quit smokin alcohol intake: current alcohol intake frequency: a few times a week substance use type: does not use caffeine: Yes (None in the last 2 weeks) Type: coffee Review of Systems (Anesthesia) ROS Narrative System reviewed and no additional complaints, except as documented.
[2024-09-14] MEDS: LR 1,000 ML - BOLUS PREOP 999 ML IV (08:58)
[2024-09-14] MEDS: Magnesium 2 GM for ERAS IV (08:59)
[2024-09-14] MEDS: TXA 2000mg in NS 100ml (Placed in Wound) OPERA.SITE (12:50)
[2024-09-14] MEDS: JPS (Morphine 10mg/ml) OPERA.SITE (12:50)
--- NOTE | 2024-09-14 13:22 | OP.PCM_ITS ---
Operative Report (Standard) Operative Information Date of Procedure: 09/14/24 Pre-Operative Diagnosis: Failed right partial knee replacement progression of lateral and patellofemoral osteoarthritis Post-Operative Diagnosis: Failed right partial knee replacement, progression of lateral and patellofemoral osteoarthritis with polyethylene wear and failure Medial tibial plateau fracture right Surgery/Procedure Performed: Conversion previous right knee medial compartment partial knee replacement total knee replacement Open reduction internal fixation right medial tibial plateau fracture ladler: Yes Visual Training Aide: Ann Cruz Tasks completed by certified surgical tech/first assistant: Other (See body of operative report) Additional medical receptionist assistant?: No Type of Anesthesia: Spinal RN Documented Start/Stop Times: Operation Date: 09/14/24 10:30 Case Time Into Pre-Op 09/14/24 08:30 Anesthesia Start 09/14/24 10:52 Into Room 09/14/24 10:52 Procedure Start 09/14/24 11:11 Procedure End 09/14/24 13:30 Anesthesia End 09/14/24 13:32 Out of Room 09/14/24 13:32 Into Recovery 09/14/24 13:34 Procedure Start Time: 11:11 Procedure Stop Time: 13:30 Select all DRAINS/GRAFTS/IMPLANTS that apply: None Special Medications: Ancef. TXA Lavage Estimated Blood Loss: 150 mL Fluids Replaced: Crystalloid Specimen collected: Yes Description of specimen(s) removed: 3 separate specimens were sent to microbiology Description of surgery: Implants used: 1. Adams size 5 triathlon cruciate retaining distal femoral cemented component 2. Adams size 5 universal tibial baseplate with 5 mm medial augment and 15 x 50 mm cemented stem 3. Adams X3 9 mm CS polyethylene 4. Adams X3 38 mm asymmetric patella Brief history operative indications: 83-year-old m with history of right partial knee replacement with progression of lateral and patellofemoral knee osteoarthritis with radiographic findings with loss of joint space, osteophyte formation and subchondral sclerosis. Failed conservative measures as mentioned in the H&P. Discussion of total knee arthroplasty as well as risk and benefits were discussed the patient including but not limited to blood loss, DVTs, PEs, neurovascular damage, general risk of anesthesia including loss of life, and stiffness or instability were discussed with patient. Patient demonstrated understanding and was able to sign informed consent. Procedure: On the date of procedure patient's right lower extremity was marked in the preoperative area. The patient was then taken back to the operating room where the patient was placed on the table in the supine position. All bony prominences were identified a well-padded. Anesthesia assumed control of the C-spine and air way and remained controlled throughout the remainder of the procedure. A tourniquet was placed on the right upper thigh and the leg was prepped in a sterile fashion. The surgeon then scrubbed at this time .Upon reentering the room right lower extremity was draped in a standard orthopedic fashion. A timeout was then called and everyone agreed upon the side, the site, the procedure to be performed, patient's identity and antibiotics given. Esmarch bandage was used to exsanguinate the extremity and the tourniquet was placed up to 250 mmHg with the knee in flexion. A midline skin incision was ma de and sharp dissection was taken down through skin subcutaneous tissue and fat. The standard medial parapatellar incision was made and the patella was subluxed laterally. An Appropriate deep MCL release was done and the fat pad was resected. Upon entering the joint it was noted patient had significant metallosis with black synovium. A complete synovectomy was performed adding significant time to procedure. Our attention was then directed to the patella. The patella was everted and a flat resection was made. The knee was then flexed up in 2 femoral pins were placed inside the incision and 2 tibial pins were placed outside the incision in the medial tibia bicortically. Once this was completed the 2 checkpoints in the femur and tibia were placed. Knee was then flexed up and the bony landmarks were registered. Once this was completed knee was taken through range of motion and manually stressed allowing us to a plan for an appropriate tibial cut. The robotic arm was brought into the field sterilely and checkpoint and saw were registered. Based on the patient's ligamentous tension appropriate adjustments were made to the operative plan and ligament releases were done. Once we were happy with our operative plan with balanced flexion and extension gaps attention was directed towards the previous implants. 1/4 inch osteotome was used to remove the femoral and tibial implants and residual cement with minimal bone loss. This did take additional time during the procedure. Based on the patient's deformity the tibial cut was made after making the initial tibial cut based on the fact that there was previous implant over the medial tibial plateau we did adjust our plan 5 mm and made a 5 mm more distal cut on the tibial plateau for a 5 mm medial augment. This took additional time to adjust and address the bone defects associated with the previous implant. At this time the tensioner was then placed in the joint and ligament tension was checked at 90 degrees and full extension. our attention was directed to the femur. The robot was brought into the field sterilely and registered. Posterior condylar cuts, anterior chamfer cuts and anterior cuts were appropriately made for a size 5 femur. When these were completed the saws were switched out in the distal femoral and posterior chamfer cuts were made. Protecting the soft tissue throughout this time. A size 5 tibial base plate was selected with a 5 mm medial augment. the knee was flexed to 90 degrees and the soft tissues and posterior osteophytes were removed from the joint. 40 cc of the periarticular injection was injected into the posterior medial corner of the joint. The appropriate trials were then placed on the femur and tibia. A trial polyethylene was trialed to ensure proper balancing and stability of the knee. The appropriate tibial internal rotation was then marked with a bovie. Our attention was then directed to the patella. The lug holes were drilled and the patella trial was placed. Patellar tracking was checked and deemed appropriate. Once we were happy lug holes were drilled for the femur and trial components were removed. The tibia was subluxed and pinned into place and the keel was punched and drilled appropriately for the appropriate size stem. Final components were verified and opened. The wound was copiously irrigated with normal saline. Cement was mixed in a vacuum type technique. When the cement was ready the components were cemented into place starting with the tibia then the femur, finally the patella was compressed into place. The trial poly component was placed and the knee was placed in full extension. Once the the implants were secured, the tracking, alignment and balance were verified. At this time we did notice that there was a small piece to me over the medial tibial plateau we were able to dissected follow it down and it stopped about 3 cm from the joint line. The signified that the stem was well past this. Based on size and nature we elected to place a screw across the fracture. A lag screw by technique was used to place a screw anterior to the keel of the tibial baseplate and about a centimeter distal to the tibial baseplate. Once this was completed the wound was explored all excess debris was irrigated out and a size 9 mm CS polyethylene component was placed. Once the final components were placed a 3-minute dilute Betadine lavage was performed followed by an Irrisept lavage was performed and the wound was copiously irrigated with normal saline solution and the periarticular injection was given. The wound was closed in a layer pinto fashion using #1 vicryl interrupted sutures for the arthrotomy, 2-0 interrupted Vicryl suture for the subcuticular layer and donta for final skin closure. A sterile compressive dressing was then placed. The patient was then awakened from anesthesia, transferred to the [facility] and transferred to the PACU for recovery. Post op plan DVT ppx: Patient will resume Eliquis tomorrow, thigh high compression stockings Follow up: in office in 2 weeks for wound check PT: to start POD #0 at hospital, outpatient PT should be arranged. My physician medical receptionist assistant was a vital part of this case, they was important because there was not another skilled set of hands available to their training and aptitude needed for safe and appropriate completion of this case. They were important in appropriate retraction during the case, and protection of soft tissues during bony cuts. In particular the experience and skill of this medical receptionist assistant made for safe retraction and exposure during implantation of medical implants without damage to vital soft tissues or structures. His intimate knowledge of the case and my steps aided in safe and expedient completion of the procedure as well as appropriate position of the leg during the case. He was also vital in assisting with closure under my direct supervision. Due to the complexity of this case robotic arm was used to assist in the surgery to improve accuracy and clinical outcomes. Modifier 22: This case is generally [place] [id number] however there are significant additional steps including complete synovectomy to address the metallosis, removal of the implants, and addressing the bone defects which took considerable more [place] [id number] on the tourniquet is a average 35 minutes. Today's tourniquet time was greater than 1 hour that should be considered in reimbursement. Surgical Findings: Stable knee. Given Donnelly tracking. 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
[2024-09-14] MEDS: LR 1,000 ML - BOLUS POSTOP 999 ML IV (13:30)
--- NOTE | 2024-09-14 13:37 | PCM.POST.ANE ---
Anesthesia: Postop Eval I Current Vital Signs Temperature: 97.7 F Pulse Rate: 72 Blood Pressure: 127/56 Respiratory Rate: 16 Pulse Ox: 94 Assessment Airway patent: Yes Spontaneous unlabored respirations: Yes nausea: No Vomiting: No Anesthesia Complication: No Fluid Hydration Crystalloid volume administer (ml): 2,000 Total IV fluid infused: 2,000 Progress Note Anesthesia document: Postop Eval 1 completed: Yes
--- NOTE | 2024-09-14 14:00 | POSTOPAN2_ITS ---
Anesthesia Postop Eval I Sum Postop Eval Completion status Anesthesia document: Postop Eval 1 completed: Yes Anesthesia Postop Eval I Summary Anesthesia Postop Eval I Summary: Anesthesia Postop Eval I: Assessment Summary Airway patent Yes 09/14/24 13:37 [email or web address] Spontaneous unlabored Yes 09/14/24 13:37 [email or web address] [email or web address] respirations Mental status nausea No 09/14/24 13:37 [email or web address] Vomiting No 09/14/24 13:37 [email or web address] Anesthesia Postop Eval I: Fluid Summary Crystalloid volume administer 2,000 09/14/24 13:37 MATERIAL [email or web address] (ml) Colloids volume administered ( ml) Blood Product volume administered (ml) Total IV fluid infused 2,000 09/14/24 13:37 [email or web address] [email or web address] Anesthesia Postop Eval I: Summary Notes Anesthesia Complication No 09/14/24 13:37 MATERIAL [email or web address] Anesthesia Complication Comment: Post-operative progress note Anesthesia: Postop Eval II Evaluation Mental status: Awake Pain Level: 2 nausea: No Vomiting: No
--- NOTE | 2024-09-14 14:00 | PCM.POSTANE2 ---
Anesthesia Postop Eval I Sum Postop Eval Completion status Anesthesia document: Postop Eval 1 completed: Yes Anesthesia Postop Eval I Summary Anesthesia Postop Eval I Summary: Anesthesia Postop Eval I: Assessment Summary Airway patent Yes 09/14/24 13:37 [email or web address] [email or web address] Spontaneous unlabored Yes 09/14/24 13:37 NEON [email or web address] respirations Mental status nausea No 09/14/24 13:37 NEON [email or web address] Vomiting No 09/14/24 13:37 NEON [email or web address] Anesthesia Postop Eval I: Fluid Summary Crystalloid volume administer 2,000 09/14/24 13:37 NEON [email or web address] (ml) Colloids volume administered ( ml) Blood Product volume administered (ml) Total IV fluid infused 2,000 09/14/24 13:37 [email or web address] [email or web address] Anesthesia Postop Eval I: Summary Notes Anesthesia Complication No 09/14/24 13:37 NEON [email or web address] Anesthesia Complication Comment: Post-operative progress note Anesthesia: Postop Eval II Evaluation Mental status: Awake Pain Level: 2 nausea: No Vomiting: No
--- NOTE | 2024-09-14 14:08 | RAD_ITS ---
PROCEDURE: KNEE 1 OR 2 VIEWS 09/14/2024 REASON FOR EXAM: REV TKA TECHNIQUE: KNEE 1 OR 2 VIEWS COMPARISON: None FINDINGS: Status post total knee replacement. There is good alignment. Postoperative soft tissue changes. RAD/Knee 1 or 2 Views IMPRESSION: Status post total knee replacement. There is good alignment. Postoperative soft tissue changes. Reading Location: [id number]
[2024-09-14] MEDS: LR 1,000 ML - 125 ML/HR (POST BOLUS) POST OP IV (15:24)
--- NOTE | 2024-09-14 16:01 | PCM.CONS.GEN ---
Assessment & Plan Assessment/Plan (1) Status post right knee replacement: PLAN: Plan Patient is an 83-year-old male who presented to [facility] on 09/14/2024 for planned right total knee replacement. Medicine consulted postoperatively for medical management. 1. Right total knee replacement ? Orthopedic surgery primary. History of partial right knee replacement back in 2007. S/p conversion to right total knee replacement on 09/[address] Lantigua. Tolerated procedure well, no intraoperative complications noted. Postoperative pain control and further management per orthopedics. Follow-up a.m. CBC and BMP. PT/OT/case management consulted. 2. History of nonobstructive CAD, hypertension, hyperlipidemia, paroxysmal A-fib/flutter ? Follows with outpatient cardiology, last visit in July. Had nuclear stress testing done on 09/03 prior to procedure that was normal. In normal sinus rhythm postoperatively with hypertension to the 140s to 150s systolic. Okay to resume all home medications including Eliquis, Coreg, amiodarone, amlodipine, hydralazine, losartan, spironolactone and pravastatin. 3. BPH with obstructive symptoms ? Stable. Continue home finasteride. DVT prophylaxis: Not indicated, on therapeutic Eliquis Total clinical time spent by myself addressing the patient's medical issues, reviewing all the data, and collaborating with patient's care team: 35 minutes. HPI Consult Data Date of Consult: 09/14/24 HPI Narrative Reason for Consultation: Postoperative medical management HPI Narrative: DEBRA MOJICA, is a 83 M who presented to [facility] on 09/14/2024 for planned right knee replacement. Medicine consulted postoperatively for medical management. Patient had history of partial bilateral knee replacement back in 2007. Had worsening pain for the last several months so decision was made to convert to a right total knee replacement. S/p right TKA with Dr. Lantigua today. Patient tolerated procedure well, no intraoperative complications noted. I saw the patient at bedside this evening postoperatively. He was sitting up comfortably in bed, conversing normally, in no acute distress. He was talking with his on the phone. He had an ice pack and dressing on the right knee and reported very minimal pain currently. Denied any other acute concerns at this time. [facility] Medical History Wears glasses History of macular degeneration History of atrial fibrillation Easy bruising History of diverticulitis Non-smoker Sleep apnea Shortness of breath on exertion History of edema History of stress test Cardiology follow-up encounter History of basal cell carcinoma of eyelid Carotid artery disease Epistaxis Hypernatremia Low testosterone in male Essential (primary) hypertension Hyperlipidemia GERD (gastroesophageal reflux disease) Arthritis Erectile dysfunction BPH (benign prostatic hyperplasia) History of Lyme disease Home Medications ?Medication ?Instructions ?Recorded ?Last Taken ?Type vit C 250 mg-vit E 90 mg-zinc 40 1 tab PO BID 03/22/22 09/14/24 History mg-copper 1 [id number] capsule (PreserVision AREDS-2) finasteride 5 mg tablet 5 mg PO QHS 03/29/22 09/13/24 History pravastatin 40 mg tablet 40 mg PO QHS 03/29/22 Unknown History amlodipine 10 mg tablet 10 mg PO DAILY this has been 03/19/23 09/13/24 Rx resumed #90 tabs lansoprazole 30 mg capsule,delayed 30 mg PO DAILY PRN acid reflux 08/14/23 Unknown History release losartan 50 mg tablet 50 mg PO BID #180 tabs 09/26/23 09/14/24 Rx spironolactone 25 mg tablet 25 mg PO QAM #90 tabs 11/29/23 09/13/24 Rx amiodarone 200 mg tablet 200 mg PO QDAY #37 tabs 01/01/24 09/14/24 Rx apixaban 5 mg tablet (Eliquis) 5 mg PO BID #60 tabs 07/21/24 09/10/24 Rx carvedilol 3.125 mg tablet 3.125 mg PO BID 08/17/24 09/14/24 History cholecalciferol (vitamin D3) 50 50 mcg PO DAILY 08/17/24 09/14/24 History mcg (2,000 unit) capsule hydralazine 25 mg tablet 25 mg PO BID #60 tabs 08/28/24 09/14/24 Rx Allergy/AdvReac Type Severity Reaction Status Date / Time simvastatin (From Zocor) Allergy Mild itch Verified 09/14/24 08:50 Family History Father , 66 yrs Myocardial infarction Mother Hypertension Surgical History Hx of colonoscopy History of repair of rotator cuff History of total left knee replacement History of total right knee replacement History of prostatectomy (~2012) History of cataract extraction (~2014) Social History Smoking Status: Former smoker how long ago did patient quit smokin alcohol intake: current alcohol intake frequency: a few times a week substance use type: does not use caffeine: Yes (None in the last 2 weeks) Type: coffee ROS Constitutional Constitutional: Denies chills, fatigue, fever(s) or weakness Cardiovascular Cardiovascular: Denies chest pain Respiratory/Chest Respiratory/Chest: Denies shortness of breath at rest Gastrointestinal Gastrointestinal: Denies abdominal pain Musculoskeletal Musculoskeletal: Denies joint pain Physical Exam Const alert, oriented x3, no apparent distress and average body habitus Constitutional Narrative: Pleasant elderly male, sitting back comfortably in bed, conversing normally, in no acute distress. General Appearance: cooperative and comfortable HEENT normocephalic, head/scalp atraumatic, hearing grossly normal bilaterally, nasal mucous membranes and turbinates normal and moist oral mucous membranes Eyes PERRL, EOMs intact bilaterally and conjunctivae normal Neck full ROM Chest inspection of chest normal Resp normal respiratory effort, normal air movement, no use of accessory muscles and clear to auscultation bilaterally Cardio regular rate, regular rhythm, no murmurs and peripheral pulses 2+ throughout GI normal to inspection, nondistended, normoactive bowel sounds, soft to palpation, non-tender and non-distended Back/Spine normal ROM Extremity Extremity Narrative: Right knee with dressing and ice pack in place. No gross abnormalities noted. Psych mental status grossly normal Lab / Micro Data 08/24/24 12:13 08/24/24 12:13 Labs: Laboratory Results - last 24 hr 09/14/24 08:48: POC Glucose 99 Imaging Radiology Impression Knee X-Ray 09/14/24 14:08 IMPRESSION: Status post total knee replacement. There is good alignment. Postoperative soft tissue changes. Reading Location: [id number] Charges/Coding Visit Charges Inpatient E&M: 69038 Subs Hosp L2
[2024-09-14] MEDS: Cefazolin 1 GM/50 ML BAG IV (18:25)
[2024-09-14] MEDS: Senna/Docusate Sodium 1 Tablet 2 TABLET PO (19:59)
[2024-09-14] MEDS: Multivitamin (Healthy Eyes) Capsule 1 CAP PO (20:00)
[2024-09-15] MEDS: Cefazolin 1 GM/50 ML BAG IV (03:11)
[2024-09-15] MEDS: 0.9% Saline Lock 10 ML Syringe IV (03:11)
[2024-09-15 04:23] VITALS: BP 131/67; PULSE 66; RESP 16; TEMP 36.2; O2SAT 97
[2024-09-15] MEDS: APIXABAN 5 MG TABLET PO ×2 (05:52→21:04)
[2024-09-15 06:26] LABS: Hematocrit 34.9 % (40-54); Hemoglobin 11.7 g/dL (13.0-16.5); Mean Corp Hgb Conc 33.5 g/dL (32-36); Mean Corpuscular Volume 93.3 fL (80-94); Mean Platelet Vol. 8.3 fl (6.2-12.0); Platelet Count 264 K/mm3 (150-450); RBC Distribution Width CV 12.9 % (11.6-14.6); RBC Distribution Width SD 44.3 fl (35.1-43.9); Red Blood Count 3.74 M/mm3 (4.6-6.2); White Blood Count 14.1 K/mm3 (4.4-11.0)
[2024-09-15 06:33] LABS: Scan Indicated on CBC? Y/N NO
[2024-09-15 07:08] LABS: Anion Gap 12 (5-15); BUN 24 mg/dL (4-19); BUN/Creat Ratio 22.1 RATIO (10-20); Calcium,Total 8.9 mg/dL (7.6-11.0); Carbon Dioxide 22.6 mmol/L (21.0-32.0); Chloride 98 mmol/L (98-108); Estimated Creatinine Clearance 58.59 ml/min (50-250); Glucose 140 mg/dL (70-99); Potassium 4.7 mmol/L (3.3-5.1)
--- NOTE | 2024-09-15 08:09 | PN.HOSP_ITS ---
Objective Data Objective Data Vital Signs: Vital Signs Temp Pulse Resp BP Pulse Ox O2 Del Method O2 Flow Rate 97.1 F L 66 16 131/67 H 97 Room Air 2 09/15/24 04:23 09/15/24 04:23 09/15/24 04:23 09/15/24 04:23 09/15/24 04:23 09/15/24 04:23 09/14/24 18:04 Oxygen Flow Rate (L/min) 2 Oxygen Delivery Method Room Air Weight: 202 lb 13.204 oz Body Mass Index (BMI) 29.0 Intake & Output: Intake and Output for Last 24 Hours 09/14/24 09/15/24 09/16/24 03:59 03:59 03:59 Intake Total 2229.58 / 2229.58 Output Total 850 / 850 Balance 1379.58 / 1379.58 Lab / Micro Data 09/15/24 06:02 09/15/24 06:02 Labs: Laboratory Results - last 24 hr 09/14/24 08:48: POC Glucose 99 09/15/24 06:02: WBC 14.1 H, RBC 3.74 L, Hgb 11.7 L, Hct 34.9 L, MCV 93.3, MCH 31.3, MCHC 33.5, RDW Std Deviation 44.3 H, RDW Coeff of Aisha 12.9, Plt Count 264, MPV 8.3, Sodium 133, Potassium 4.7, Chloride 98, Carbon Dioxide 22.6, Anion Gap 12, BUN 24 H, Creatinine 1.07, Estim Creat Clear Calc 58.59, Est GFR (MDRD) Non- Af 68, BUN/Creatinine Ratio 22.1 H, Glucose 140 H, Calcium 8.9 Micro: Microbiology 09/14/24 Unknown Tissue - Knee Gram Stain - Final 09/14/24 Unknown Tissue - Knee Gram Stain - Final 09/14/24 Unknown Bone - Knee Gram Stain - Final 08/24/24 12:13 Swab (Method) Nasal Screen MRSA/MSSA - Final Radiography Diagnostic Testing: Radiology Impression Knee X-Ray 09/14/24 14:08 IMPRESSION: Status post total knee replacement. There is good alignment. Postoperative soft tissue changes. Reading Location: [id number] Physical Exam Narrative General: Alert, Oriented x3, Cooperative, No apparent distress HEENT: Atraumatic, PERRLA, EOMI, Normocephalic Oral: Moist Mucosa Neck: Supple, No JVD Lungs: Diminished, Normal air movement, No rhonchi, No wheeze, No rales Cardiovascular: Regular rate, Regular Rhythm, Normal S1, Normal S2, No murmurs Abdomen: Soft, Non Tender, Non-Distended, No Hepato-splenomegaly Extremities: No edema, Capillary Refill Less than 3 Seconds Skin: No rashes, No breakdown Musculoskeletal: Tenderness to right knee after surgery, dressing CDI Neurological: No focal neurological deficits, Motor Exam 5/5 strength throughout, Sensory exam intact to light touch and pain Psych/Mental Status: Normal Affect, Appropriate Assessment & Plan Assessment/Plan (1) Status post right knee replacement: PLAN: Plan 1. Right total knee replacement 09/14/2024 ?CBC shows a reactive leukocytosis, renal function stable ? Can resume all of his home blood pressure medications ? PT/OT ? Pain management per primary ? Medically stable for discharge 2. History of nonobstructive CAD, hypertension, hyperlipidemia, paroxysmal A- fib/flutter ? Had nuclear stress testing done on 09/03 prior to procedure that was normal. ? Blood pressures are stable ? Continue with Eliquis, Coreg, amiodarone, amlodipine, hydralazine, losartan, spironolactone and pravastatin. 3. BPH with obstructive symptoms ? Stable ? Continue home finasteride. DVT: Eliquis Please call with questions Charges/Coding Visit Charges Inpatient E&M: 65464 Subs Hosp L2
[2024-09-15 09:31] VITALS: BP 116/48; PULSE 77; RESP 16; TEMP 36.6; O2SAT 96
[2024-09-15 09:34] VITALS: PULSE 77
[2024-09-15] MEDS: Multivitamin (Healthy Eyes) Capsule 1 CAP PO ×2 (09:34→21:05)
[2024-09-15] MEDS: Senna/Docusate Sodium 1 Tablet 2 TABLET PO ×2 (09:35→21:05)
[2024-09-15] MEDS: Cholecalciferol (VIT D3) 25 MCG TABLET (1,000 UNITS) 50 MCG PO (09:35)
--- NOTE | 2024-09-15 10:25 | CASEMGMT ---
DALIA DUARTE Assessment Face to Face with patient for initial transition planning/care coordination assessment. DALIA DUARTE introduced self and role at [facility], pt voices understanding. Pt is A&Ox4 and is resting comfortably in the chair and is calm. Care providers, pharmacy, and demographics verified. Admitting dx: Right Knee Replacement LACE Strata: 2 PCP: Yonny Specialists: Grzegorz (Ortho), ELADIO Preferred Pharmacy: [facility] Insurance: [facility] A/B, [place] Prescription Benefit: Yes LNOK: Maria C (Daughter) Living Arrangements: Pt lives alone in a single story home with a ramp to enter. Pt is legally blind. Pt states that he is normally able to care for himself but is currently concerned about returning home once medically ready for DC ADLs/IADLs: Report indep at baseline. See above. Pt states that his daughter is able to provide the pt with support at home Transportation: daughter, neighbors, taxi DME: CPAP @ [facility] with no additional oxygen. Pt is currently on RA. Pt states that he also has a FWW, cane, raised toilet seat, shower chair, and grab bars. Pt states that he gets dizzy when he gets up and is fearful of falling. Provided the pt with medical alert system resources. HHC/SNF: Reports hx @ [facility] RU. Pt?s goal: Return to PLOF Plan: TBD. Anticipate additional skilled care. At this time, the pt reports that he is unsure if he is safe to go home or if he would prefer to go to a SNF for additional therapy. Pt reports that he has been educated on the TCU/Rehab unit and [facility] guidelines regarding SNF LOC. Pt was also educated about HHC by this procedure writer. Pt states that he would like to discuss this with his daughter as well. See PT notes. Anticipate SNF vs skilled HHC vs OP therapy. Report given to [facility] Care Management team. Germain Alanis RN, CM
--- NOTE | 2024-09-15 11:19 | CASEMGMT ---
Addendum entered by Sharla Erickson 09/15/24 12:20: Pt dtr Maria C present for d/c planning discussion. Maria C reports that her brother/pt son, Kushal, is arriving tomorrow (09/16) and plans to stay with pt until Saturday. Pt dtr Maria C will then take over care. MariaC reports that she will transport to all OP appointments. Pt plan will be for OP therapy. RNCM updated. JIM Gusman Original Note: Social Work- SW met with pt to discuss discharge planning needs. Pt reports that he may only want to go somewhere for 1-2 days. SW explained that pt would need to stay longer for therapeutic benefit. SW discussed HHC vs OP per pt request for information. Pt reports dtr is coming in within the next few minutes and he would like to discuss plans with her. SW remains available to follow. Pt reports HCPOA as dtr Maria C. Pt reports that he also has a son in [place], but he is not involved in care. JIM Gusman
--- NOTE | 2024-09-15 12:24 | CASEMGMT ---
Addendum entered by Beverly Terry 09/15/24 14:49: Received tc back from [facility] who states pt is not set up for OP therapy. DALIA DUARTE into pt room, pt is aware he is not set up with OP therapy at [facility]. Pt states he would like his appt made there but not early. TC to [facility], spoke with Dustin, set up appt for at 4pm. Placed on dc instructions at this time. Original Note: made DALIA DUARTE aware that outpt therapy is not set up. TC to [facility] to confirm this, left requesting returned call.
[2024-09-15 14:01] VITALS: BP 135/58; PULSE 74; RESP 16; TEMP 36; O2SAT 97
--- NOTE | 2024-09-15 15:42 | PN.ORTHO_ITS ---
Subjective Subjective Patient appears to be comfortable in bedside chair. Patient states he is getting very dizzy when he stands up. Patient states that he does not feel stable with his walker or being nonweightbearing. Patient states he does not feel comfortable with going home like this. Patient states that yesterday he had to be cathed because he cannot pee. Patient states that this time he feels he cannot completely empty his bladder. Patient has been up and worked with physical therapy. Patient denies any shortness of breath, chest pain, calf pain. Patient denies any fevers, chills, signs of infection. Patient denies any new numbness or tingling. Patient denies any adverse events overnight. Objective Data Objective Data Vital Signs: Vital Signs Temp Pulse Resp BP Pulse Ox O2 Del Method O2 Flow Rate 96.8 F L 74 16 135/58 H 97 Room Air 2 09/15/24 14:01 09/15/24 14:01 09/15/24 14:01 09/15/24 14:01 09/15/24 14:01 09/15/24 14:01 09/14/24 18:04 Oxygen Flow Rate (L/min) 2 Oxygen Delivery Method Room Air Weight: 92 kg Body Mass Index (BMI) 29.0 Intake & Output: Intake and Output for Last 24 Hours 09/13/24 09/14/24 09/15/24 23:59 23:59 23:59 Intake Total 2179.58 / 2179.58 50 / 50 Output Total 850 / 850 Balance 1329.58 / 1329.58 50 / 50 Lab / Micro Data 09/15/24 06:02 09/15/24 06:02 Labs: Laboratory Results - last 24 hr 09/15/24 06:02: WBC 14.1 H, RBC 3.74 L, Hgb 11.7 L, Hct 34.9 L, MCV 93.3, MCH 31.3, MCHC 33.5, RDW Std Deviation 44.3 H, RDW Coeff of Aisha 12.9, Plt Count 264, MPV 8.3, Sodium 133, Potassium 4.7, Chloride 98, Carbon Dioxide 22.6, Anion Gap 12, BUN 24 H, Creatinine 1.07, Estim Creat Clear Calc 58.59, Est GFR (MDRD) Non- Af 68, BUN/Creatinine Ratio 22.1 H, Glucose 140 H, Calcium 8.9 Micro: Microbiology 09/14/24 Unknown Tissue - Knee Gram Stain - Final 09/14/24 Unknown Tissue - Knee Gram Stain - Final 09/14/24 Unknown Bone - Knee Gram Stain - Final 08/24/24 12:13 Swab (Method) Nasal Screen MRSA/MSSA - Final Physical Exam Narrative CHARLES hose in place bilaterally SCDs in place bilaterally Minimal drainage at distal one third of dressing Dorsiflexion and plantarflexion are performed without pain or restriction. Sensation intact to light touch. Neurovascularly intact overall. Negative Homans bilaterally. Const alert, oriented x3 and no apparent distress Assessment & Plan Assessment/Plan (1) Status post right knee replacement: PLAN: Status post conversion previous right knee medial compartment partial knee replacement to total knee replacement with open reduction internal fixation of right medial tibial plateau fracture postop day 1 1. DVT prophylaxis: Patient will be on his regular dose of Eliquis starting on postop day 1. Patient will be wearing CHARLES hose for 2 weeks postoperatively. Patient was educated he can take his CHARLES hose off for showering and at nighttime. 2. Pain medications: Patient will be on Tylenol 1000 mg every 8 hours. Patient will be taking oxycodone as needed for postoperative pain medications. We will avoid anti-inflammatories in this patient due to chronic kidney disease as well as anticoagulation use. 3. Constipation: Patient was instructed to take senna as needed until her first bowel movement to decrease risk of infection following surgery. Patient was instructed if he has not yet had a bowel movement in 3 days to call our office. 4. Benign prostatic hyperplasia: Patient was educated if he still feels he cannot fully empty his bladder to get the nursing staff and discussed repeat catheterization. 5. Physical exam: Patient will be 50% weightbearing with a walker for 6 weeks due to open reduction internal fixation of right medial tibial plateau fracture. 6. Reactive leukocytosis: White blood cell count is currently 14.1. Vital signs are stable and patient is afebrile at this time. Likely reactive from surgical intervention 7. H&H: 11.7/34.9. Patient's vitals are stable. At this time hemoglobin is above 10 and we do not need to proceed with anemia protocol. 8. Incentive spirometry: Patient was instructed to continue to use the incentive spirometer every hour that they are awake for the first week to exercise the lung and decrease risk of postoperative lung infection 9. Patient has to follow-up for postoperative instructions 10. Doxycycline: Patient will be on doxycycline for 2 weeks postoperatively due to nature of revision surgery. Patient was educated on the risk of sunburn while taking doxycycline. Patient was educated to take a probiotic while taking doxycycline. Patient voiced understanding. 11. Medicine is currently on board and feels that patient is medically stable at this time. 12. Disposition: At this time due to patient only being 50% weightbearing with a walker as well as continued dizziness upon standing we will plan to keep patient for an x-ray in the hospital. Patient was educated he does not feel stable on his feet at this time and does not feel like he could maneuver his house on his own. Patient states that his son will be in town staying with him for a week but has not arrived yet. Patient was educated if he continues to feel unstable and feel that he cannot maneuver at home he may need to think about going to a halfway facility or transitional care unit. Patient voiced understanding. Patient was educated to talk to the nursing staff if he feels that he cannot fully empty his bladder. Patient does have outpatient physical therapy scheduled at this time. Patient was encouraged to continue working with physical therapy in the hospital and taking walks. We will plan to see patient tomorrow and plan for discharge upon patient feeling stable. Patient does have 2-week follow-up appointment scheduled at our office. Patient was encouraged to call with any questions, concerns, new problems.
[2024-09-15 21:00] VITALS: PULSE 68
[2024-09-15 21:09] VITALS: BP 134/62; PULSE 68; RESP 16; TEMP 36.3; O2SAT 97
[2024-09-16 05:00] VITALS: BP 136/64; PULSE 76; RESP 16; TEMP 36.4; O2SAT 95
[2024-09-16 05:56] LABS: Hematocrit 32.3 % (40-54); Hemoglobin 10.9 g/dL (13.0-16.5); Immature Granulocytes Count 0.040 X10^3/uL (0.0-0.0); Mean Corp Hgb Conc 33.7 g/dL (32-36); Mean Corpuscular Volume 92.0 fL (80-94); Mean Platelet Vol. 8.5 fl (6.2-12.0); NRBC Flagged by Analyzer 0 % (0-5); Platelet Count 239 K/mm3 (150-450); RBC Distribution Width CV 13.1 % (11.6-14.6); RBC Distribution Width SD 43.6 fl (35.1-43.9); Red Blood Count 3.51 M/mm3 (4.6-6.2); White Blood Count 8.8 K/mm3 (4.4-11.0)
[2024-09-16 06:34] LABS: Anion Gap 9 (5-15); BUN 33 mg/dL (4-19); BUN/Creat Ratio 29.2 RATIO (10-20); Calcium,Total 9.0 mg/dL (7.6-11.0); Carbon Dioxide 25.2 mmol/L (21.0-32.0); Chloride 101 mmol/L (98-108); Estimated Creatinine Clearance 55.97 ml/min (50-250); Glucose 81 mg/dL (70-99); Potassium 4.6 mmol/L (3.3-5.1)
--- NOTE | 2024-09-16 08:41 | PN.ORTHO_ITS ---
Subjective Subjective Patient is lying comfortably in bed upon examination. Patient states that his pain is very well-controlled. Patient states he is just taking Tylenol. Patient states that he does feel he has laid for too long and he may be stiff. Patient states he thinks his dizziness may have gotten better but he has not yet been up. Patient states that he is worried because he does not feel 100% stable on his walker with being 50% weightbearing. Patient states that he has urinated and had a bowel movement which has made him feel better. Patient denies any shortness of breath, chest pain, calf pain. Patient denies any new numbness or tingling. Patient denies any fevers, chills, signs of infection. Patient denies any adverse effects overnight. Objective Data Objective Data Vital Signs: Vital Signs Temp Pulse Resp BP Pulse Ox O2 Del Method O2 Flow Rate 97.5 F L 76 16 136/64 H 95 Room Air 2 09/16/24 05:00 09/16/24 05:00 09/16/24 05:00 09/16/24 05:00 09/16/24 05:00 09/16/24 05:00 09/14/24 18:04 Oxygen Flow Rate (L/min) 2 Oxygen Delivery Method Room Air Weight: 92 kg Body Mass Index (BMI) 29.0 Intake & Output: Intake and Output for Last 24 Hours 09/14/24 09/15/24 09/16/24 23:59 23:59 23:59 Intake Total 2179.58 / 2179.58 50 / 50 Output Total 850 / 850 Balance 1329.58 / 1329.58 50 / 50 Lab / Micro Data 09/16/24 05:15 09/16/24 05:15 Labs: Laboratory Results - last 24 hr 09/16/24 05:15: WBC 8.8, RBC 3.51 L, Hgb 10.9 L, Hct 32.3 L, MCV 92.0, MCH 31.1, MCHC 33.7, RDW Std Deviation 43.6, RDW Coeff of Aisha 13.1, Plt Count 239, MPV 8.5, Immature Gran % (Auto) 0.500, Neut % (Auto) 68.6, Lymph % (Auto) 13.3 L, M celina % (Auto) 16.3 H, Eos % (Auto) 1.1, Baso % (Auto) 0.2, Absolute Neuts (auto) 6.1, Absolute Lymphs (auto) 1.18, Nucleated RBC % 0, Sodium 136, Potassium 4.6, Chloride 101, Carbon Dioxide 25.2, Anion Gap 9, BUN 33 H, Creatinine 1.12, Estim Creat Clear Calc 55.97, Est GFR (MDRD) Non-Af 65, BUN/Creatinine Ratio 29.2 H, Glucose 81, Calcium 9.0 Micro: Microbiology 09/14/24 Unknown Bone - Knee Gram Stain - Final 09/14/24 Unknown Bone - Knee Wound Culture - Preliminary No growth-Final to follow 09/14/24 Unknown Tissue - Knee Gram Stain - Final 09/14/24 Unknown Tissue - Knee Wound Culture - Preliminary No growth-Final to follow 09/14/24 Unknown Tissue - Knee Gram Stain - Final 09/14/24 Unknown Tissue - Knee Wound Culture - Preliminary No growth-Final to follow 08/24/24 12:13 Swab (Method) Nasal Screen MRSA/MSSA - Final Physical Exam Narrative CHARLES hose in place bilaterally SCDs in place bilaterally Minimal drainage at distal one third of Mepilex dressing Dorsiflexion and plantarflexion are performed without pain or restriction. Sensation intact to light touch. Neurovascularly intact overall. Negative Homans bilaterally. Const alert, oriented x3 and no apparent distress Assessment & Plan Assessment/Plan (1) Status post right knee replacement: PLAN: Status post conversion previous right knee medial compartment partial knee replacement to total knee replacement with open reduction internal fixation of right medial tibial plateau fracture postop day 2 1. DVT prophylaxis: Patient will be on his regular dose of Eliquis starting on postop day 1. Patient will be wearing CHARLES hose for 2 weeks postoperatively. Patient was educated he can take his CHARLES hose off for showering and at nighttime. 2. Pain medications: Patient will be on Tylenol 1000 mg every 8 hours. Patient will be taking oxycodone as needed for postoperative pain medications. We will avoid anti-inflammatories in this patient due to chronic kidney disease as well as anticoagulation use. 3. Constipation: Patient states that this time he has had a bowel movement. 4. Benign prostatic hyperplasia: Patient feels that emptying his bladder has gone much better than it did yesterday. Patient states he feels he is back to baseline. 5. Physical exam: Patient will be 50% weightbearing with a walker for 6 weeks due to open reduction internal fixation of right medial tibial plateau fracture. 6. Reactive leukocytosis: White blood cell count is currently 8.8 which has resolved increased white blood cell count. 7. H&H: 10.9/32.3. Patient's vitals are stable. At this time hemoglobin is above 10 and we do not need to proceed with anemia protocol. 8. Incentive spirometry: Patient was instructed to continue to use the incentive spirometer every hour that they are awake for the first week to exercise the lung and decrease risk of postoperative lung infection 9. Patient has to follow-up per postoperative instructions 10. Doxycycline: Patient will be on doxycycline for 2 weeks postoperatively due to nature of revision surgery. Patient was educated on the risk of sunburn while taking doxycycline. Patient was educated to take a probiotic while taking doxycycline. Patient voiced understanding. 11. Medicine is currently on board and feels that patient is medically stable at this time. 12. Disposition: At this point patient has not yet worked with physical therapy. Patient's physical therapy notes yesterday suggested that patient go to a senior care facility. Patient should be okay for discharge as long as pain maintains adequately controlled, patient works with physical therapy and does well, okay per medicine doctors recommendations. Patient states at this point he is considering going to the [facility] or a senior care facility. Patient states he just does not feel stable using his walker with 50% weightbearing at this time yet. Patient states that his son is home from [place] for 1 week. Patient states that he would like to work with physical therapy and eat some breakfast to see if his dizziness has resolved and to see if he feels more comfortable on a walker today. I did discuss case with physical therapy who stated that it may be beneficial for patient to do a short stay at a senior care facility due to macular degeneration causing him vision issues, living alone, being partially weightbearing. Patient states that he would like to discuss his options with case management as well. Medicine is on board. Case management is on board. Patient does have 2-week follow-up visit scheduled with our office. Patient was educated to call with any questions, concerns, new problems.
[2024-09-16 09:00] VITALS: RESP 18
[2024-09-16] MEDS: Senna/Docusate Sodium 1 Tablet 2 TABLET PO (09:44)
[2024-09-16] MEDS: Multivitamin (Healthy Eyes) Capsule 1 CAP PO (09:45)
[2024-09-16] MEDS: APIXABAN 5 MG TABLET PO (09:45)
[2024-09-16 09:46] VITALS: PULSE 82
[2024-09-16] MEDS: Cholecalciferol (VIT D3) 25 MCG TABLET (1,000 UNITS) 50 MCG PO (09:46)
[2024-09-16 10:00] VITALS: BP 123/59; PULSE 82; RESP 16; TEMP 37; O2SAT 98
--- NOTE | 2024-09-16 10:00 | CASEMGMT ---
Addendum entered by Beverly Terry 09/16/24 13:16: TC to [facility], spoke with Julius, requested pt meds be delivered to the room. Addendum entered by Beverly Terry 09/16/24 11:02: DALIA DUARTE notified that pt son and stepdtr are present in room. DALIA DUARTE into pt room, pt wishes to have discussion with family present. Discussed options of rehab units, SNF vs OP therapy. Pt son to stay with pt until Saturday or Saturday. Pt stepdtr is willing to stay with pt after that if needed. Pt and family aware that therapy is set up to start tomorrow. Pt wishes to dc home. Pt would like his meds delivered to his room prior to dc. Pt stepdtr states that they have a handheld shower with seat, raised toilet seat and 2 FWW. All are in agreement that they feel safe for pt to return home. Updated PA via backline at this time. Original Note: DALIA DUARTE into pt room to discuss dc plan. Pt ready to get up with aide. Pt states he needs to speak with his family first.
--- NOTE | 2024-09-16 12:34 | PCM.DC ---
Discharge Instructions DC O2, CPAP, BIPAP needs Home O2 Discharge instructions: No Dressing / Incision Discharge Activity: May Not Drive (For 6 weeks postoperatively.) Weight Bearing Status: Partial weight bearing (Patient will be 50% weightbearing with a walker.) Keep extremity elevated above heart level: Operative Extremity (Right knee.) Dressing / Incision Call your doctor if your incision/area has: Continuous Slow Oozing, Sudden Increased Bleeding, Increased Pain/ Swelling, Increased Redness, Foul Smelling Discharge and Swelling at the incision site Call your doctor if you observe: Fever of 101 or Higher, Coldness, Increased Pain, Numbness or Tingling, Change in Color, Inability to urinate, Inability to have a bowel movement, Using more than 1 pad per hour, Shortness of breath, Dizziness, Fainting spells, Swelling in the ankles, Chest pain, Increased palpitations (irregular heartbeat), Calf discomfort and Uncontrolled pain Remove Dressing in: 5 days (Patient may remove dressing on postop day 5 09/19/24. If incision is clean, dry, intact may leave open to air. May shower using gentle soap and water.) Cleanse incision/area with: Soap & Water Additional Dressing/Incision Instructions:: No soaking, submerging for 6 weeks. No lotions, salves, oils over incision for 6 weeks. OARRS report was checked and reviewed today. Follow Up Care Test Results: Test results from this visit will be discussed in further detail at your follow-up appointment, if applicable. Discharge Plan Admission Admit Date/Time: 09/14/24 07:16 Attending Provider: James Lantigua Primary Care Provider: Gerry Blancas [facility] [employer] Providers: Eric Dahl; Dejan Acevedo Discharge Orders/Prescriptions Prescriptions: New acetaminophen 500 mg Tablet 1,000 mg PO Q8 Qty: 0 0RF doxycycline monohydrate 100 mg Capsule 100 mg PO BID 12 Days Qty: 24 0RF Rx Instructions: Take until 2 weeks postoperatively. famotidine 20 mg Tablet 20 mg PO DAILY 30 Days Qty: 30 0RF oxycodone 5 mg Tablet 5 - 10 mg PO Q4H PRN PRN (Reason: As needed for pain control) 7 Days Qty: 42 0RF Continued amiodarone 200 mg tablet 200 mg PO QDAY Qty: 37 11RF Rx Instructions: 200mg twice daily x 1 week, and then 200mg daily. PreserVision AREDS-2 250-90-40-1 mg capsule 1 tab PO BID carvedilol 3.125 mg tablet 3.125 mg PO BID cholecalciferol (vitamin D3) 50 mcg (2,000 unit) capsule 50 mcg PO DAILY finasteride 5 mg tablet 5 mg PO QHS pravastatin 40 mg tablet 40 mg PO QHS amlodipine 10 mg tablet 10 mg PO DAILY Qty: 90 3RF lansoprazole 30 mg capsule,delayed release(DR/EC) 30 mg PO DAILY PRN (Reason: acid reflux) losartan 50 mg tablet 50 mg PO BID Qty: 180 3RF spironolactone 25 mg tablet 25 mg PO QAM Qty: 90 3RF Eliquis 5 mg tablet 5 mg PO BID Qty: 60 12RF hydralazine 25 mg tablet 25 mg PO BID Qty: 60 11RF Referrals / Follow Up: Gerry Blancas Chi, MD [Primary Care Provider] - Disposition Disposition (needs filled in before D/C Order can be placed): Home, Self Care
[2024-09-16 13:54] VITALS: BP 120/62; PULSE 78; RESP 18; TEMP 37.1; O2SAT 96
--- NOTE | 2024-09-16 14:30 | PHA.DC.MR.R ---
Pharmacy [place] Med Reconciliation Pharmacy Service has performed discharge medication reconciliation for this patient. Medication education papers prepared, patient discharged when counseling attempted. Medications reviewed. The patient's discharge medication list was reviewed for discrepancies and discrepancies were resolved. Medications at Discharge Home Medications vit C 250 mg-vit E 90 mg-zinc 40 mg-copper 1 [id number] capsule (PreserVision AREDS-2) 1 tab PO BID 03/22/22 finasteride 5 mg tablet 5 mg PO QHS 03/29/22 pravastatin 40 mg tablet 40 mg PO QHS 03/29/22 amlodipine 10 mg tablet 10 mg PO DAILY this has been resumed #90 tabs 03/19/23 lansoprazole 30 mg capsule,delayed release 30 mg PO DAILY PRN acid reflux 08/14/23 losartan 50 mg tablet 50 mg PO BID #180 tabs 09/26/23 spironolactone 25 mg tablet 25 mg PO QAM #90 tabs 11/29/23 amiodarone 200 mg tablet 200 mg PO QDAY #37 tabs 01/01/24 apixaban 5 mg tablet (Eliquis) 5 mg PO BID #60 tabs 07/21/24 carvedilol 3.125 mg tablet 3.125 mg PO BID 08/17/24 cholecalciferol (vitamin D3) 50 mcg (2,000 unit) capsule 50 mcg PO DAILY 08/17/24 hydralazine 25 mg tablet 25 mg PO BID #60 tabs 08/28/24 acetaminophen 500 mg tablet 1,000 mg (2 x 500 mg) PO Q8 #0 tabs 09/16/24 doxycycline monohydrate 100 mg capsule 100 mg PO BID 12 days #24 caps 09/16/24 famotidine 20 mg tablet 20 mg PO DAILY 30 days #30 tabs 09/16/24 oxycodone 5 mg tablet 5 - 10 mg (1 - 2 x 5 mg) PO Q4H PRN PRN As needed for pain control 7 days #42 tabs 09/16/24
== END 2024-09-16 14:11 | disposition home or self-care (01) | DRG 470 ==
LOC: MS3 09-15 08:32 → SDC 09-15 12:12 → AC 09-15 12:12 → SDC 09-15 12:13 → MS3 09-15 12:13
PROVIDERS: Anesthesiology; Admitting Provider Specialist; PCP Family Medicine Geriatric Medicine; Referring Provider Specialist; Visit Provider Specialist
PROC: 0SRC0JZ Replacement of Right Knee Joint with Synthetic Substitute, Open Approach (ICD-10-PCS; CPT 27447; principal; 2024-09-14 10:00)
DX: T84.092A Other mechanical complication of internal right knee prosthesis, initial encounter (principal); E87.1 Hypo-osmolality and hyponatremia; I48.92 Unspecified atrial flutter; N13.8 Other obstructive and reflux uropathy; S82.131A Displaced fracture of medial condyle of right tibia, initial encounter for closed fracture; M96.671 Fracture of tibia or fibula following insertion of orthopedic implant, joint prosthesis, or bone plate, right leg; I12.9 Hypertensive chronic kidney disease with stage 1 through stage 4 chronic kidney disease, or unspecified chronic kidney disease; E78.00 Pure hypercholesterolemia, unspecified; M17.11 Unilateral primary osteoarthritis, right knee; K21.9 Gastro-esophageal reflux disease without esophagitis; G47.30 Sleep apnea, unspecified; H35.30 Unspecified macular degeneration; T84.84XA Pain due to internal orthopedic prosthetic devices, implants and grafts, initial encounter; K59.00 Constipation, unspecified; I48.0 Paroxysmal atrial fibrillation; Z87.891 Personal history of nicotine dependence; Z79.899 Other long term (current) drug therapy; Z79.01 Long term (current) use of anticoagulants; Z99.89 Dependence on other enabling machines and devices; Z96.653 Presence of artificial knee joint, bilateral; Z86.16 Personal history of COVID-19; N40.1 Benign prostatic hyperplasia with lower urinary tract symptoms; E66.3 Overweight; Z68.29 Body mass index [BMI] 29.0-29.9, adult
CPT/HCPCS: 36415; 73560; 80048; 82040; 82962; 83735; 85025; 85027; 87015; 87070; 87075; 87081; 87116; 87176; 87205; 87206; 93005; 94668; 97110; 97116; 97162; 97166; 97530; 97535; C1713; C1776; A4216; J2405

== ENCOUNTER → 2024-11-17 | Outpatient (CLI) | payer MEDICARE, BC, SELFPAY ==
--- NOTE | 2024-11-17 13:00 | CDU_ITS ---
Reason For Study Reason For Study: LEFT CAROTID BRUIT Rt. Velocities/BP Lt. Velocities/BP Prox CCA 57.5/8.4 cm/sec. Prox CCA 78.0/8.1 cm/sec. Mid CCA 70.8/5.6 cm/sec. Mid CCA 78.0/8.1 cm/sec. Dist CCA 72.6/4.6 cm/sec. Dist CCA 64.8/8.1 cm/sec. Prox ICA 54.5/13.8 cm/sec. Prox ICA 383.5/49.2 cm/sec. Mid ICA 49.0/9.5 cm/sec. Mid ICA 129.3/8.6 cm/sec. Dist ICA 36.3/6.6 cm/sec. Dist ICA 65.1/13.1 cm/sec. Rt. ICA/CCA = 54.5/70.8=0.8. Lt. ICA/CCA = 383.5/78.0=4.9. Prox ECA 141.7/0.0 cm/sec. Prox ECA 163.7/0.0 cm/sec. Rt. Vert. 69.4/9.2 cm/sec. Lt. Vert. 44.3/6.5 cm/sec. Right Extracranial There is homogeneous, smooth atherosclerotic plaque noted in the right common carotid artery. There is heterogeneous, irregular atherosclerotic plaque noted in the right internal carotid artery. Left Extracranial There is homogeneous, smooth atherosclerotic plaque noted in the left common carotid artery. There is heterogeneous, irregular atherosclerotic plaque noted in the left internal carotid artery. Antegrade flow is noted in the left vertebral artery. There is heterogeneous, irregular atherosclerotic plaque noted in the left bulb. Procedure Carotid Duplex 61486. This is a Carotid Duplex examination using B-mode, color flow and specral Doppler. Exam performed in department. VL/Carotid Duplex Ultrasound Interpretation Summary Mild (<50%) stenosis right extracranial internal carotid. Severe (>70%) stenosis left extracranial internal carotid. Patent and antegrade vertebrals bilaterally. Ordering Physician: Marita Munroe Referring Physician: Gerry Blancas Chi Performed By: Rachana Mina RDCS, RVT
== END | disposition home or self-care (01) ==
LOC: CVS 12:59
PROVIDERS: PCP Family Medicine Geriatric Medicine; Referring Provider Physician Assistant Medical; Visit Provider Physician Assistant Medical
DX: R09.89 Other specified symptoms and signs involving the circulatory and respiratory systems (principal)
CPT/HCPCS: 93880